=== PATIENT | male | born 1945 | race Caucasian/White ===

== ENCOUNTER → 2016-10-22 | Outpatient (CLI) | payer MEDICARE ==
--- NOTE | 2016-10-22 17:52 | PN ---
71-year-old gentleman who has been followed in the sleep center to discuss results of the sleep studies and to check results of his treatment with CPAP he recently was started on treatment with CPAP. I discussed results of diagnostic sleep study and CPAP titration with the patient in detail. Has severe sleep apnea. Recently was started on treatment with CPAP at 13 cm of water. I checked reading from his CPAP machine. I also checked his CPAP unit. Patient is using equipment practically 100% more than 4 hours per night. The patient feels better with machine regarding to his sleep and feeling during the day. Apison Sleepiness Scale is 4. I checked his CPAP unit. CPAP pressure of 13 cm of water. ( ) up to 26 L/min from the machine. Apnea-hypopnea index reading for the month is 8.7. ( ) in automatic regimen. MEDICATIONS: 1. Amlodipine. 2. Benadryl. 3. Hydralazine. 4. Probenecid. During the physical exam, patient in no distress. VITAL SIGNS: BP 139/82, HR 62, RR 16. Weight 198, temperature 97.8. Oxygen saturation at room air 96%. HEENT: PERRLA, EOMI. NECK: Supple. No JVD. Thyroid is not palpable. LUNGS: Clear to percussion and to auscultation. Good air exchange. No wheezing or rhonchi. HEART: S1, S2 regular. No murmurs, gallops or rubs. ABDOMEN: Soft and nontender. Bowel sounds are present. No organomegaly appreciated. EXTREMITIES: No clubbing or cyanosis. MANAGER OF LEARNING: Awake, alert, and oriented x3. Cranial nerves 2 to 7 intact. There is no fasciculation or atrophy noted. No focal deficits observed. IMPRESSION: 1. Severe obstructive sleep apnea-hypopnea syndrome. Apnea-hypopnea index 72.5 significantly improved on CPAP with a pressure of 13 cm of water. Patient demonstrated 100% compliance with treatment benefiting from treatment. 2. Severe periodic limb movements have been documented during diagnostic night and titration. 3. Hypertension. 4. Gout. 5. Allergies. 6. History of nasal polyp. 7. Status post bilateral knee replacement. 8. Status post shoulder surgery. PLAN: 1. I adjusted pressure in patient's CPAP unit up to 14 cm of water. 2. I adjusted REM to home automatic regimen to regular regimen for 20 minutes starting from 5 cm of water. 3. Continue to use CPAP equipment every night for the whole night. 4. No driving if feeling any sleepiness. 5. Losing weight. Thank you very much for allowing me to participate in the management of your patient. Sincerely, Nitin Bravo MD, PhD, FAASM. Diplomat of [employer], Sleep Medicine Board by [employer] [facility] [place]
== END | disposition home or self-care (01) ==
LOC: SLEEP 11:19
PROVIDERS: ATTEND Internal Medicine
DX: G47.33 Obstructive sleep apnea (adult) (pediatric) (principal); I10 Essential (primary) hypertension; M10.9 Gout, unspecified; Z91.09 Other allergy status, other than to drugs and biological substances; Z96.653 Presence of artificial knee joint, bilateral; Z98.890 Other specified postprocedural states; J33.9 Nasal polyp, unspecified; Z79.899 Other long term (current) drug therapy

== ENCOUNTER 2018-04-04 13:55 | Day surgery (SDC) | payer MEDICARE ==
[2018-04-04 13:40] VITALS: BP 170/74; PULSE 54; TEMP 97.6
[2018-04-04] MEDS ORDERED: IOPAMIDOL-250 50ML BTL IV ONE (14:33)
[2018-04-04 15:02] VITALS: RESP 18
--- NOTE | 2018-04-13 13:15 | IR ---
Fluoroscopic portogram([facility]). HISTORY: Device malfunction. The patient presented to the CVL with a [place] needle within the port. Preliminary fluoroscopy demonst rated the catheter to be intact. However, the catheter was coiled overlying the right supraclavicu lar region. No aspiration could be obtained and therefore injection could not be performed. Next 1 image and 0.3 minutes of fluoroscopy provided. IMPRESSION: 1. Catheter is coiled and looped in the supraclavicular region and appears to be occluded with no ret urn present upon aspiration.
== END 2018-04-04 15:00 | disposition home or self-care (01) ==
LOC: CATHCVL 13:55
PROVIDERS: ATTEND Radiology Diagnostic Radiology
DX: T82.514A Breakdown (mechanical) of infusion catheter, initial encounter (principal); C25.0 Malignant neoplasm of head of pancreas; L27.1 Localized skin eruption due to drugs and medicaments taken internally; R19.7 Diarrhea, unspecified; I10 Essential (primary) hypertension; E78.5 Hyperlipidemia, unspecified; M10.9 Gout, unspecified; Z90.49 Acquired absence of other specified parts of digestive tract; Z96.653 Presence of artificial knee joint, bilateral; Z87.891 Personal history of nicotine dependence; Z79.82 Long term (current) use of aspirin; Z79.899 Other long term (current) drug therapy
CPT/HCPCS: 36598; J1642; Q9966

== ENCOUNTER 2018-09-06 19:01 | Inpatient (IN) | payer MEDICARE ==
[2018-09-06] MEDS ORDERED: ASPIRIN 81 MG PO STA (19:21)
[2018-09-06] MEDS ORDERED: NITROGLYCERIN SL TABS 0.4 MG TAB SUBLINGUAL STA ×3 (19:21)
--- NOTE | 2018-09-06 19:24 | ED ---
General Adult HPI - General Chief complaint: Chest Pain Stated complaint: Chest Pain Time Seen by Provider: 09/06/18 19:15 Source: patient, family, RN notes reviewed Mode of arrival: ambulatory Limitations: no limitations - History of Present Illness Initial comments: Patient is a pleasant 73-year-old male presenting to the emergency Department with complaints of chest discomfort. Onset was around an hour and a half ago. Patient has indigestion in his chest with some radiation towards the back. No history of similar symptoms previously. Discomfort has progressively worsened and is turned to become severe. Patient does have some associated dyspnea. There is some mild nausea. No diaphoresis. Patient does have a history of pancreatitis approximately one year ago however that does not feel similar to this. Patient has not been diagnosed with pancreatic cancer however has not started treatment yet. - Related Data Home Medications Medication Instructions Recorded Confirmed Aspirin 1 cap PO DAILY 04/04/18 09/06/18 Atorvastatin [Lipitor] 40 mg PO DAILY 04/04/18 09/06/18 Metoprolol Succinate [Toprol XL] 50 mg PO DAILY 04/04/18 09/06/18 Pantoprazole [Protonix] 40 cap PO DAILY 04/04/18 09/06/18 Probenecid/Colchicine 1 each PO DAILY 04/04/18 09/06/18 [Probenecid-Colchicine Tabs] Timolol 0.5% Ophth Soln [Timoptic 1 drop BOTH EYES DAILY 04/04/18 09/06/18 0.5% Ophth Soln] amLODIPine BESYLATE [Norvasc] 10 mg PO DAILY 04/04/18 09/06/18 hydrALAZINE HCL 50 mg PO DAILY 04/04/18 09/06/18 Allergies Allergy/AdvReac Type Severity Reaction Status Date / Time No Known Allergies Allergy Verified 09/06/18 20:10 Review of Systems ROS Statement: Those systems with pertinent positive or pertinent negative responses have been documented in the HPI. ROS Other: All systems not noted in ROS Statement are negative. Constitutional: Denies: fever Eyes: Denies: eye pain ENT: Denies: ear pain Respiratory: Reports: dyspnea. Denies: cough Cardiovascular: Reports: chest pain Endocrine: Denies: fatigue Gastrointestinal: Reports: nausea. Denies: abdominal pain Genitourinary: Denies: dysuria Musculoskeletal: Reports: as per HPI Skin: Denies: rash Neurological: Denies: weakness Past Medical History Past Medical History: Cancer, Hypertension Additional Past Medical History / Comment(s): pancreatic CA History of Any Multi-Drug Resistant Organisms: None Reported Past Surgical History: Cholecystectomy, Orthopedic Surgery Additional Past Surgical History / Comment(s): B knees Past Psychological History: No Psychological Hx Reported Smoking Status: Former smoker Past Alcohol Use History: Occasional Past Drug Use History: None Reported General Exam Limitations: no limitations General appearance: alert Head exam: Present: atraumatic Eye exam: Present: normal appearance, PERRL ENT exam: Present: normal oropharynx Neck exam: Present: normal inspection Respiratory exam: Present: normal lung sounds bilaterally. Absent: chest wall tenderness Cardiovascular Exam: Present: regular rate, normal rhythm Expanded Peripheral pulses: 2+: Radial (R), Radial (L), Posterior Tibialis (R), Posterior Tibialis (L) GI/Abdominal exam: Present: soft. Absent: distended, tenderness Extremities exam: Present: normal inspection. Absent: pedal edema, calf tenderness Back exam: Present: normal inspection Neurological exam: Present: alert Psychiatric exam: Present: normal affect, normal mood Skin exam: Present: normal color Course Vital Signs 09/06/18 09/06/18 09/06/18 19:05 19:31 19:40 Temperature 98.1 F Pulse Rate 71 Respiratory 18 Rate Blood Pressure 172/80 164/86 O2 Sat by Pulse 97 96 Oximetry 09/06/18 09/06/18 09/06/18 19:50 20:10 20:20 Temperature Pulse Rate 68 82 80 Respiratory 17 Rate Blood Pressure 154/75 142/87 158/80 O2 Sat by Pulse 93 L 95 95 Oximetry EKG Findings - EKG Comments: EKG Findings:: Sinus rhythm at 72. KS 158. QRS 140. QTc 450. QTC 492. Normal axis. Right bundle branch block. Inferior Q waves. No acute ST change. Medical Decision Making - Medical Decision Making Patient reevaluated and still had some discomfort. Dilaudid and GI cocktail have been ordered. Patient and family updated on results and plan. Case was discussed in detail with Dr. Bonilla, covering for hospital call, who will admit. Cardiology will be consulted. Dr. Nolasco will also be placed on consult. Patient will be covered with antibiotics for possible pneumonia. - Lab Data Result diagrams: 09/06/18 19:29 09/06/18 19:29 Lab Results 09/06/18 09/06/18 09/06/18 Range/Units 19:29 19:29 19:29 WBC 17.5 H (3.8-10.6) k/uL RBC 4.01 L (4.30-5.90) m/uL Hgb 11.8 L (13.0-17.5) gm/dL Hct 37.0 L (39.0-53.0) % MCV 92.4 (80.0-100.0) fL MCH 29.3 (25.0-35.0) pg MCHC 31.8 (31.0-37.0) g/dL RDW 16.4 H (11.5-15.5) % Plt Count 357 (150-450) k/uL Neutrophils % 75 % Lymphocytes % 12 % Monocytes % 7 % Eosinophils % 5 % Basophils % 0 % Neutrophils # 13.1 H (1.3-7.7) k/uL Lymphocytes # 2.1 (1.0-4.8) k/uL Monocytes # 1.2 H (0-1.0) k/uL Eosinophils # 0.8 H (0-0.7) k/uL Basophils # 0.1 (0-0.2) k/uL Hypochromasia Slight Anisocytosis Slight PT (9.0-12.0) sec INR (<1.2) APTT (22.0-30.0) sec D-Dimer (<0.60) mg/L FEU Sodium 142 (137-145) mmol/L Potassium 3.7 (3.5-5.1) mmol/L Chloride 107 (98-107) mmol/L Carbon Dioxide 21 L (22-30) mmol/L Anion Gap 14 mmol/L BUN 21 H (9-20) mg/dL Creatinine 1.41 H (0.66-1.25) mg/dL Est GFR (CKD-EPI)AfAm 57 (>60 ml/min/1.73 sqM) Est GFR (CKD-EPI)NonAf 50 (>60 ml/min/1.73 sqM) Glucose 160 H (74-99) mg/dL Calcium 9.8 (8.4-10.2) mg/dL Magnesium 1.5 L (1.6-2.3) mg/dL Total Bilirubin 0.4 (0.2-1.3) mg/dL AST 42 (17-59) U/L ALT 56 (21-72) U/L Alkaline Phosphatase 131 H (38-126) U/L Total Creatine Kinase 81 (55-170) U/L CK-MB (CK-2) 0.6 (0.0-2.4) ng/mL CK-MB (CK-2) Rel Index 0.7 Troponin I 0.012 (0.000-0.034) ng/mL Total Protein 7.6 (6.3-8.2) g/dL Albumin 4.4 (3.5-5.0) g/dL Amylase 39 (30-110) U/L Lipase 117 (23-300) U/L 09/06/18 Range/Units 19:29 WBC (3.8-10.6) k/uL RBC (4.30-5.90) m/uL Hgb (13.0-17.5) gm/dL Hct (39.0-53.0) % MCV (80.0-100.0) fL MCH (25.0-35.0) pg MCHC (31.0-37.0) g/dL RDW (11.5-15.5) % Plt Count (150-450) k/uL Neutrophils % % Lymphocytes % % Monocytes % % Eosinophils % % Basophils % % Neutrophils # (1.3-7.7) k/uL Lymphocytes # (1.0-4.8) k/uL Monocytes # (0-1.0) k/uL Eosinophils # (0-0.7) k/uL Basophils # (0-0.2) k/uL Hypochromasia Anisocytosis PT 9.9 (9.0-12.0) sec INR 0.9 (<1.2) APTT 25.7 (22.0-30.0) sec D-Dimer 1.37 H (<0.60) mg/L FEU Sodium (137-145) mmol/L Potassium (3.5-5.1) mmol/L Chloride (98-107) mmol/L Carbon Dioxide (22-30) mmol/L Anion Gap mmol/L BUN (9-20) mg/dL Creatinine (0.66-1.25) mg/dL Est GFR (CKD-EPI)AfAm (>60 ml/min/1.73 sqM) Est GFR (CKD-EPI)NonAf (>60 ml/min/1.73 sqM) Glucose (74-99) mg/dL Calcium (8.4-10.2) mg/dL Magnesium (1.6-2.3) mg/dL Total Bilirubin (0.2-1.3) mg/dL AST (17-59) U/L ALT (21-72) U/L Alkaline Phosphatase (38-126) U/L Total Creatine Kinase (55-170) U/L CK-MB (CK-2) (0.0-2.4) ng/mL CK-MB (CK-2) Rel Index Troponin I (0.000-0.034) ng/mL Total Protein (6.3-8.2) g/dL Albumin (3.5-5.0) g/dL Amylase (30-110) U/L Lipase (23-300) U/L - Radiology Data Radiology results: report reviewed (Computed tomography scan of the chest shows cardiomegaly. No pulmonary embolism. Basilar pulmonary infiltrates and atelectasis. Mild aneurysm of the ascending aorta.), image reviewed (Chest x- ray shows cardiomegaly.) Disposition Clinical Impression: Chest pain Disposition: ADMITTED IP TO THIS HOSP Is patient prescribed a controlled substance at d/c from ED?: No Referrals: Nonstaff,Physician [Primary Care Provider] - 1-2 days Decision Time: 22:05
[2018-09-06 19:53] LABS: Anisocytosis Slight; Basophils # (A) 0.1 k/uL (0-0.2); Basophils % (A) 0 %; Eosinophils # (A) 0.8 k/uL (0-0.7); Eosinophils % (A) 5 %; HGB 11.8 gm/dL (13.0-17.5); Hypochromasia Slight; Lymphocytes # (A) 2.1 k/uL (1.0-4.8); Lymphocytes % (A) 12 %; MCH 29.3 pg (25.0-35.0); MCHC 31.8 g/dL (31.0-37.0); MCV 92.4 fL (80.0-100.0); Monocytes # (A) 1.2 k/uL (0-1.0); Monocytes % (A) 7 %; Neutrophils # (A) 13.1 k/uL (1.3-7.7); Neutrophils % (A) 75 %; Platelet Count 357 k/uL (150-450); RBC 4.01 m/uL (4.30-5.90); RDW 16.4 % (11.5-15.5); WBC 17.5 k/uL (3.8-10.6)
[2018-09-06] MEDS ORDERED: MORPHINE SULFATE 4 MG/ML SYRINGE IV STA (20:02)
[2018-09-06 20:04] LABS: Albumin 4.4 g/dL (3.5-5.0); Calcium 9.8 mg/dL (8.4-10.2); Magnesium 1.5 mg/dL (1.6-2.3); Potassium 3.7 mmol/L (3.5-5.1); Total Bilirubin 0.4 mg/dL (0.2-1.3); Total Protein 7.6 g/dL (6.3-8.2)
--- NOTE | 2018-09-06 20:06 | XR ---
EXAMINATION TYPE: XR chest 2V DATE OF EXAM: 09/06/2018 COMPARISON: 03/01/2018 HISTORY: Chest pain TECHNIQUE: Frontal and lateral views of the chest are obtained. FINDINGS: Heart is enlarged. There is no heart failure. Costophrenic angles are fairly clear. There are chest leads. There is right central venous catheter with the tip in the superior vena cava. IMPRESSION: Cardiomegaly. No acute lung disease. No significant change.
[2018-09-06 20:09] LABS: INR 0.9 (<1.2); Partial Thromboplastin Time 25.7 sec (22.0-30.0); Prothrombin Time 9.9 sec (9.0-12.0)
[2018-09-06 20:32] LABS: Creatine Kinase MB 0.6 ng/mL (0.0-2.4); Troponin I 0.012 ng/mL (0.000-0.034)
[2018-09-06 20:33] LABS: D-Dimer 1.37 mg/L FEU (<0.60)
[2018-09-06] MEDS ORDERED: SODIUM CHLORIDE 0.9% 500 ML 500 ML IV STA (20:37)
[2018-09-06] MEDS ORDERED: MORPHINE SULFATE 2 MG/ML SYRINGE IVP STA (20:50)
--- NOTE | 2018-09-06 21:20 | CT ---
EXAMINATION TYPE: CT angio chest DATE OF EXAM: 09/06/2018 9:08 PM COMPARISON: HISTORY: r/o PE CT DLP: 456.4 mGycm Automated exposure control for dose reduction was used. CONTRAST: CTA scan of the thorax is performed with IV Contrast, patient injected with 80 mL of Isovue 370, pulm onary embolism protocol. There are 3-D post processed images.. FINDINGS: There is patchy atelectasis at the posterior lung bases. Heart is enlarged. There is no pericardial e ffusion. There is no pleural effusion. There is no evidence of a pulmonary mass. There is no mediasti nal adenopathy. There are no hilar masses. There is mild aneurysm of the ascending aorta that measures 4.3 cm. There is no evidence of dissectio n. There is normal contrast opacification of the pulmonary arteries. I see no filling defects. The mey ny thorax is intact. I see no bony destructive process. IMPRESSION: CARDIOMEGALY. NO EVIDENCE OF PULMONARY EMBOLISM. BASILAR PULMONARY MILD INFILTRATES AND ATELECTASIS. MILD ANEURYSM OF THE ASCENDING AORTA.
[2018-09-06] MEDS ORDERED: MAGNESIUM OXIDE 400 MG TAB PO STA (21:31)
[2018-09-06] MEDS ORDERED: HYDROmorphone 1 MG/ML 1 ML SYRINGE IVP STA ×2 (21:45→23:03)
[2018-09-06] MEDS ORDERED: MAG HYDROX/AL HYDROX/SIMETH 30 ML, HYOSCYAMINE ELIXIR 10 ML, CIMETIDINE HCL 300 MG, LID... PO STA ×4 (22:04)
[2018-09-06] MEDS ORDERED: NITROGLYCERIN SL TABS 0.4 MG TAB SUBLINGUAL PRN (22:06)
[2018-09-06] MEDS ORDERED: PNEUMONIA PROTOCOL UTILIZED 1 EACH MISC PO PRN (22:06)
[2018-09-06] MEDS ORDERED: AZITHROMYCIN 500 MG in SODIUM CHLORIDE 0.9% 250 ML IVPB STA (22:06)
[2018-09-06] MEDS ORDERED: CYCLOBENZAPRINE 10 MG TAB PO STA (23:03)
[2018-09-06] MEDS: SODIUM CHLORIDE 0.9% 1,000 ML IV SCH (23:12)
[2018-09-06] MEDS ORDERED: METOPROLOL SUCCINATE (ER) 25 MG TAB.ER.24H PO ONE (23:45)
[2018-09-07] MEDS: NITROGLYCERIN OINT 1 INCH/GM PACKET TOPICAL SCH ×4 (00:19→16:58)
[2018-09-07] MEDS: MORPHINE SULFATE 4 MG/ML SYRINGE IV PRN ×2 (00:22→02:35)
--- NOTE | 2018-09-07 00:23 | CT ---
EXAMINATION TYPE: CT abdomen pelvis wo con DATE OF EXAM: 09/06/2018 COMPARISON: None HISTORY: abd pain CT DLP: 682.4 mGycm Automated exposure control for dose reduction was used. TECHNIQUE: Helical acquisition of images was performed from the lung bases through the pelvis. FINDINGS: There is some patchy atelectasis at the lung bases. Heart is enlarged. There is small pericardial eff usion. There is minimal pleural fluid. There are clips from cholecystectomy. Liver shows no focal defect. Spleen appears normal. There is no pancreatic mass. There is dilated air and fluid-filled stomach. There is no adrenal mass. There is no evidence of pancreatic mass. There is contrast in the kidneys f rom previous exam. Kidneys show no hydronephrosis. Ureters are not dilated. There is no retroperitoneal adenopathy. Ther e is umbilical hernia contains fat. This measures 3 x 3.5 cm. Abdominal aorta is atheromatous. Bladder distends smoothly with contrast. There is no pelvic mass. Th ere is no inguinal hernia. There is no free fluid in the pelvis. There is no evidence of a bowel obst ruction. Appendix is not definitely seen. There is no sign of appendicitis. There is no sign of free air. There is multilevel spondylotic change in the lumbar spine with disc space narrowing and vacuum disc. I see no compression fracture. IMPRESSION: DILATED STOMACH COULD RELATE TO SOME GASTROPARESIS. NO DILATED DUCTS. UMBILICAL HERNIA. BASILAR PULMONARY PATCHY ATELECTASIS AND PLEURAL THICKENING. THYROMEGALY WITH SMALL PERICARDIAL EFFUS ION.
[2018-09-07 02:14] LABS: Creatine Kinase MB 0.5 ng/mL (0.0-2.4); Troponin I 0.015 ng/mL (0.000-0.034)
[2018-09-07] MEDS: SODIUM CHLORIDE 0.9% 1,000 ML IV SCH ×2 (06:49→12:06)
--- NOTE | 2018-09-07 07:15 | XR ---
EXAMINATION TYPE: XR chest 2V DATE OF EXAM: 09/07/2018 COMPARISON: Chest x-ray and CTA chest from yesterday. HISTORY: Pneumonia progress study. TECHNIQUE: Frontal and lateral views of the chest are obtained. FINDINGS: There is chronic parenchymal change with patchy left basilar atelectasis and/or infiltrate . Right lung is clear. There is coiled right internal jugular central venous catheter with tip short of the SVC redemonstrated. The cardiac silhouette size remains enlarged. Multilevel spurring and disc space narrowing in the visualized spine is present. Cholecystectomy clips are noted. IMPRESSION: Cardiomegaly and chronic parenchymal change with patchy left basilar atelectasis and/or infiltrate.
[2018-09-07 08:52] LABS: Cholesterol 70 mg/dL (<200); HDL Cholesterol 51 mg/dL (40-60); LDL Cholesterol,Calculated 8 mg/dL (0-99); Triglycerides 53 mg/dL (<150)
[2018-09-07] MEDS ORDERED: ASPIRIN 325 MG TAB PO SCH (09:00)
[2018-09-07 09:08] LABS: Creatine Kinase MB 0.7 ng/mL (0.0-2.4); Troponin I 0.031 ng/mL (0.000-0.034)
--- NOTE | 2018-09-07 09:49 | ECHOF ---
Referral Reason:Chest pain MEASUREMENTS -------- HEIGHT: 172.7 cm WEIGHT: 89.8 kg BP: 132/71 RVIDd: 4.0 cm (< 3.3) IVSd: 1.4 cm (0.6 - 1.1) LVIDd: 4.3 cm (3.9 - 5.3) LVPWd: 1.5 cm (0.6 - 1.1) IVSs: 1.7 cm LVIDs: 3.3 cm LVPWs: 1.5 cm Ao Diam: 3.5 cm (2.0 - 3.7) LA Diam: 4.7 cm (2.7 - 3.8) MV EXCURSION: 13.275 mm (> 18.000) MV EF SLOPE: 61 mm/s (70 - 150) EPSS: 0.3 cm MV E Franklin: 0.47 m/s MV DecT: 218 ms MV A Franklin: 0.69 m/s MV E/A Ratio: 0.68 RAP: 5.00 mmHg RVSP: 26.04 mmHg FINDINGS -------- Sinus rhythm. This was a technically adequate study. The left ventricular size is normal. There is moderate concentric left ventricular hypertrophy. O verall left ventricular systolic function is low-normal with, an EF between 50 - 55 %. The right ventricle is moderately enlarged. The left atrial size is normal. The right atrial size is normal. There is mild aortic valve sclerosis. There is no evidence of aortic regurgitation. Mild mitral annular calcification present. Mild mitral regurgitation is present. Mild tricuspid regurgitation present. There is no evidence of pulmonary hypertension. The right v entricular systolic pressure, as measured by Doppler, is 26.04mmHg. There is no pulmonic regurgitation present. The aortic root size is normal. There is no pericardial effusion. CONCLUSIONS -------- 1. The left ventricular size is normal. 2. There is moderate concentric left ventricular hypertrophy. 3. Overall left ventricular systolic function is low-normal with, an EF between 50 - 55 %. 4. The right ventricle is moderately enlarged. 5. The left atrial size is normal. 6. The right atrial size is normal. 7. There is mild aortic valve sclerosis. 8. Mild mitral annular calcification present. 9. Mild mitral regurgitation is present. 10. Mild tricuspid regurgitation present. 11. There is no evidence of pulmonary hypertension. 12. The right ventricular systolic pressure, as measured by Doppler, is 26.04mmHg. 13. There is no pulmonic regurgitation present. 14. The aortic root size is normal. 15. There is no pericardial effusion. INSPECTOR [employer]ING: Niharika Gamez RDCS
[2018-09-07] MEDS ORDERED: traMADol 50 MG TAB PO PRN (10:16)
[2018-09-07] MEDS ORDERED: SENNOSIDES 8.6 MG TAB PO PRN (10:17)
[2018-09-07] MEDS ORDERED: CYCLOBENZAPRINE 5 MG TAB PO PRN (10:18)
--- NOTE | 2018-09-07 10:25 | P.CRDCN ---
History of Present Illness History of present illness: This is Dr. Alegre dictating a consult on this patient The patient was interviewed and examined by me IMPRESSION / ASSESSMENT: History of pancreatic cancer, admitted with chest discomfort and normal, enzymes twelve-lead ECG shows right bundle branch block pattern PLAN: Continue treatment for pancreatic cancer. No further workup from a cardiac standpoint We will see only on a when necessary basis HPI Patient admitted with chest discomfort ROS: No fever chills or rigors, no cough, phlegm or expectoration, no nausea, vomiting or diarrhea, no hematuria, dysuria, no musculoskeletal complaints, no strokes or seizures, no skin lesions. EXAMINATION Afebrile 98F Blood pressure 115/66. His mercury Pulse rate is normal Breath sounds are reduced bilaterally no rhonchi no crackles Heart sounds and S2 are soft Abdomen is soft Extended is warm REVIEW OF LABS, ECG Elevated white count was 17.5 thousand Hemoglobin 11.8 Sodium and potassium normal BUN 21 creatinine Normal cardiac enzymes 2-D echo shows moderate LVH with preserved LV systolic function Ascending aorta measures 4.3 cm, mildly aneurysmal Past Medical History Past Medical History: Cancer, Hypertension Additional Past Medical History / Comment(s): pancreatic CA History of Any Multi-Drug Resistant Organisms: None Reported Past Surgical History: Cholecystectomy, Orthopedic Surgery Additional Past Surgical History / Comment(s): B knees Past Psychological History: No Psychological Hx Reported Smoking Status: Former smoker Past Alcohol Use History: Occasional Past Drug Use History: None Reported Medications and Allergies Home Medications Medication Instructions Recorded Confirmed Type Atorvastatin [Lipitor] 40 mg PO DAILY 04/04/18 09/06/18 History Metoprolol Succinate [Toprol XL] 50 mg PO DAILY 04/04/18 09/06/18 History Probenecid/Colchicine 1 each PO DAILY 04/04/18 09/06/18 History [Probenecid-Colchicine Tabs] RX: Aspirin 1 cap PO DAILY 04/04/18 09/06/18 History RX: Pantoprazole [Protonix] 40 cap PO DAILY 04/04/18 09/06/18 History RX: Timolol 0.5% Ophth Soln 1 drop BOTH EYES DAILY 04/04/18 09/06/18 History [Timoptic 0.5% Ophth Soln] RX: hydrALAZINE HCL 50 mg PO DAILY 04/04/18 09/06/18 History amLODIPine BESYLATE [Norvasc] 10 mg PO DAILY 04/04/18 09/06/18 History Allergies Allergy/AdvReac Type Severity Reaction Status Date / Time No Known Allergies Allergy Verified 09/06/18 20:10 Physical Exam Vitals: Vital Signs Temp Pulse Pulse Resp BP BP Pulse Ox 09/07/18 09:00 98 F 75 22 115/66 88 L 09/07/18 04:00 98.1 F 76 18 132/77 97 09/07/18 00:04 97.8 F 09/07/18 00:00 89 18 165/70 09/06/18 23:52 98 F 89 18 165/78 96 09/06/18 23:50 88 16 143/72 94 L 09/06/18 23:30 148/80 09/06/18 23:20 90 148/80 91 L 09/06/18 23:10 91 141/69 93 L 09/06/18 23:00 92 167/81 94 L 09/06/18 22:30 91 151/94 93 L 09/06/18 22:10 87 148/86 94 L 09/06/18 22:00 88 18 139/89 09/06/18 21:20 87 16 161/88 96 09/06/18 20:50 81 128/77 96 09/06/18 20:40 85 156/88 97 09/06/18 20:30 79 158/80 09/06/18 20:20 80 17 158/80 95 09/06/18 20:10 82 142/87 95 09/06/18 19:50 68 154/75 93 L 09/06/18 19:40 164/86 09/06/18 19:31 96 09/06/18 19:05 98.1 F 71 18 172/80 97 Intake and Output 09/06/18 09/07/18 09/07/18 22:59 06:59 14:59 Intake Total 480 Output Total 200 Balance 480 -200 Intake: Oral 480 Output: Urine 200 Other: Voiding Method Toilet Toilet # Voids 2 Weight 86.183 kg 90.2 kg Results 09/06/18 19:29 09/06/18 19:29 Cardiac Enzymes 09/06/18 09/06/18 09/07/18 Range/Units 19:29 19:29 01:00 AST 42 (17-59) U/L CK-MB (CK-2) 0.6 0.5 (0.0-2.4) ng/mL Troponin I 0.012 0.015 (0.000-0.034) ng/mL 09/07/18 Range/Units 07:56 AST (17-59) U/L CK-MB (CK-2) 0.7 (0.0-2.4) ng/mL Troponin I 0.031 (0.000-0.034) ng/mL Coagulation 09/06/18 Range/Units 19:29 PT 9.9 (9.0-12.0) sec APTT 25.7 (22.0-30.0) sec Lipids 09/07/18 Range/Units 07:56 Triglycerides 53 (<150) mg/dL Cholesterol 70 (<200) mg/dL HDL Cholesterol 51 (40-60) mg/dL CBC 09/06/18 Range/Units 19:29 WBC 17.5 H (3.8-10.6) k/uL RBC 4.01 L (4.30-5.90) m/uL Hgb 11.8 L (13.0-17.5) gm/dL Hct 37.0 L (39.0-53.0) % Plt Count 357 (150-450) k/uL Comprehensive Metabolic Panel 09/06/18 Range/Units 19:29 Sodium 142 (137-145) mmol/L Potassium 3.7 (3.5-5.1) mmol/L Chloride 107 (98-107) mmol/L Carbon Dioxide 21 L (22-30) mmol/L BUN 21 H (9-20) mg/dL Creatinine 1.41 H (0.66-1.25) mg/dL Glucose 160 H (74-99) mg/dL Calcium 9.8 (8.4-10.2) mg/dL AST 42 (17-59) U/L ALT 56 (21-72) U/L Alkaline Phosphatase 131 H (38-126) U/L Total Protein 7.6 (6.3-8.2) g/dL Albumin 4.4 (3.5-5.0) g/dL Current Medications Generic Name Dose Route Start Last Admin Trade Name Freq PRN Reason Stop Dose Admin Aspirin 81 mg 09/08/18 09:00 Aspirin PO DAILY GABRIELA Atorvastatin Calcium 40 mg 09/08/18 09:00 Lipitor PO DAILY [facility] Cyclobenzaprine HCl 5 mg 09/07/18 10:18 Flexeril PO TID PRN Muscle Spasm Ceftriaxone Sodium 1,000 mg/ 50 mls @ 100 mls/hr 09/07/18 23:00 Sodium Chloride IVPB Q24H [facility] Sodium Chloride 1,000 mls @ 100 mls/hr 09/06/18 22:15 09/07/18 06:49 Saline 0.9% IV 100 mls/hr .Q10H [facility] Administration Magnesium Sulfate/Dextrose 1 100 mls @ 100 mls/hr 09/07/18 10:30 gm/ IV Solution IVPB 09/07/18 12:29 Q1H [facility] Metoprolol Succinate 50 mg 09/08/18 09:00 Toprol Xl PO DAILY [facility] Miscellaneous Information 1 each 09/06/18 22:06 Pneumonia Protocol Utilized PO ONCE PRN Per Protocol Nitroglycerin 1 inch 09/07/18 00:00 09/07/18 06:47 Nitro-Bid Oint TOPICAL 1 inch Q6HR [facility] Administration Nitroglycerin 0.4 mg 09/06/18 22:06 Nitrostat SUBLINGUAL Q5M PRN Chest Pain Pantoprazole Sodium 40 mg 09/08/18 07:30 Protonix PO AC-BRKFST [facility] Senna 8.6 mg 09/07/18 10:17 Senokot PO BID PRN Constipation Sodium Chloride 10 ml 09/07/18 09:00 09/07/18 09:02 Saline Flush IV 10 ml BID [facility] Administration Timolol Maleate 1 drops 09/08/18 09:00 Timoptic BOTH EYES DAILY [facility] Tramadol HCl 50 mg 09/07/18 10:16 Ultram PO QID PRN Pain/Discomfort Intake and Output 09/06/18 09/07/18 09/07/18 22:59 06:59 14:59 Intake Total 480 Output Total 200 Balance 480 -200 Intake: Oral 480 Output: Urine 200 Other: Voiding Method Toilet Toilet # Voids 2 Weight 86.183 kg 90.2 kg 09/06/18 19:29 09/06/18 19:29
[2018-09-07] MEDS ORDERED: METOPROLOL SUCCINATE (ER) 50 MG TAB.ER.24H PO STA (10:33)
[2018-09-07] MEDS ORDERED: ATORVASTATIN 40 MG TAB PO STA (10:33)
[2018-09-07] MEDS: MAGNESIUM SULFATE-D5W PMX 1 GM in DEXTROSE/WATER 1 100ML.BAG IVPB SCH ×2 (10:54→12:01)
[2018-09-07] MEDS ORDERED: POLYETHYLENE GLYCOL 3350 17 GM POWD.PACK PO PRN (11:54)
[2018-09-07] MEDS: MORPHINE SULFATE 4 MG/ML SYRINGE IVP PRN ×2 (12:02→16:06)
[2018-09-07] MEDS: PANTOPRAZOLE 40 MG TABLET PO SCH (12:02)
--- NOTE | 2018-09-07 12:42 | P.HPIM ---
History of Present Illness 73-year-old pleasant gentleman came in with the comments of epigastric abdominal discomfort burning sensation which started yesterday at the time patient did not eat and he felt like has indigestion. Patient also has another pain in the epigastric abdominal area which radiates to the back and worsens with deep breathing which is severe 8/10 in severity as he is unable to take deep breath patient is found to have atelectasis. Patient is also sort of breath saturating at 89% on the previous of [place] because of which CAT scan of the chest was obtained did not show any pulmonary embolism. CAT scan of the abdomen was often as well as no significant pancreatic mass was seen as per the reading from radiologist. Patient does have history of pancreatic cancer received chemotherapy and will receive the and of the cycle of chemotherapy. 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 His main concern appears to be the pain radiating to the back. Because of the chest pain patient was admitted to rule out a concurrent syndromes could etiology was consulted patient's troponins are negative cardio evaluated the patient and they do not believe patient has any cardiac pain. I' ll also obtain BNP although patient does not have any clinical signs or symptoms of CHF or pneumonia patient does have cough without any significant sputum production. Review of Systems REVIEW OF SYSTEMS: CONSTITUTIONAL: No fever, no malaise, no fatigue. HEENT: No recent visual problems or hearing problems. Denied any sore throat. CARDIOVASCULAR: No PND, no palpitations, no syncope. PULMONARY: no hemoptysis. GASTROINTESTINAL: No diarrhea, no nausea, no vomiting, no abdominal pain. NEUROLOGICAL: No headaches, no weakness, no numbness. HEMATOLOGICAL: Denies any bleeding or petechiae. GENITOURINARY: Denies any burning micturition, frequency, or urgency. MUSCULOSKELETAL/RHEUMATOLOGICAL: Denies any joint pain, swelling, or any muscle pain. ENDOCRINE: Denies any polyuria or polydipsia. The rest of the 14-point review of systems is negative. Past Medical History Past Medical History: Cancer, Hypertension Additional Past Medical History / Comment(s): pancreatic CA History of Any Multi-Drug Resistant Organisms: None Reported Past Surgical History: Cholecystectomy, Orthopedic Surgery Additional Past Surgical History / Comment(s): B knees Past Psychological History: No Psychological Hx Reported Smoking Status: Former smoker Past Alcohol Use History: Occasional Past Drug Use History: None Reported Medications and Allergies Home Medications Medication Instructions Recorded Confirmed Type Aspirin 1 cap PO DAILY 04/04/18 09/06/18 History Atorvastatin [Lipitor] 40 mg PO DAILY 04/04/18 09/06/18 History Metoprolol Succinate [Toprol XL] 50 mg PO DAILY 04/04/18 09/06/18 History Pantoprazole [Protonix] 40 cap PO DAILY 04/04/18 09/06/18 History Probenecid/Colchicine 1 each PO DAILY 04/04/18 09/06/18 History [Probenecid-Colchicine Tabs] Timolol 0.5% Ophth Soln [Timoptic 1 drop BOTH EYES DAILY 04/04/18 09/06/18 History 0.5% Ophth Soln] amLODIPine BESYLATE [Norvasc] 10 mg PO DAILY 04/04/18 09/06/18 History hydrALAZINE HCL 50 mg PO DAILY 04/04/18 09/06/18 History Allergies Allergy/AdvReac Type Severity Reaction Status Date / Time No Known Allergies Allergy Verified 09/06/18 20:10 Physical Exam Vitals: Vital Signs Temp Pulse Pulse Resp BP BP Pulse Ox 09/07/18 10:58 99.2 F 78 20 119/64 89 L 09/07/18 09:00 98 F 75 22 115/66 88 L 09/07/18 04:00 98.1 F 76 18 132/77 97 09/07/18 00:04 97.8 F 09/07/18 00:00 89 18 165/70 09/06/18 23:52 98 F 89 18 165/78 96 09/06/18 23:50 88 16 143/72 94 L 09/06/18 23:30 148/80 09/06/18 23:20 90 148/80 91 L 09/06/18 23:10 91 141/69 93 L 09/06/18 23:00 92 167/81 94 L 09/06/18 22:30 91 151/94 93 L 09/06/18 22:10 87 148/86 94 L 09/06/18 22:00 88 18 139/89 09/06/18 21:20 87 16 161/88 96 09/06/18 20:50 81 128/77 96 12/25/18 20:40 85 156/88 97 12/25/18 20:30 79 158/80 09/06/18 20:20 80 17 158/80 95 09/06/18 20:10 82 142/87 95 09/06/18 19:50 68 154/75 93 L 09/06/18 19:40 164/86 09/06/18 19:31 96 09/06/18 19:05 98.1 F 71 18 172/80 97 Intake and Output 09/06/18 09/07/18 09/07/18 22:59 06:59 14:59 Intake Total 480 Output Total 200 Balance 480 -200 Intake: Oral 480 Output: Urine 200 Other: Voiding Method Toilet Toilet # Voids 2 Weight 86.183 kg 90.2 kg PHYSICAL EXAMINATION: GENERAL: The patient is alert and oriented x3, not in any acute distress. Well developed, well nourished. HEENT: Pupils are round and equally reacting to light. EOMI. No scleral icterus. No conjunctival pallor. Normocephalic, atraumatic. No pharyngeal erythema. No thyromegaly. CARDIOVASCULAR: S1 and S2 present. No murmurs, rubs, or gallops. PULMONARY: Chest is clear to auscultation, no wheezing or crackles. ABDOMEN: Soft, nontender, nondistended, normoactive bowel sounds. No palpable organomegaly. MUSCULOSKELETAL: No joint swelling or deformity. EXTREMITIES: No cyanosis, clubbing, or pedal edema. NEUROLOGICAL: Gross neurological examination did not reveal any focal deficits. SKIN: No rashes. Results CBC & Chem 7: 09/06/18 19:29 09/06/18 19:29 Labs: Abnormal Lab Results - Last 24 Hours (Table) 09/06/18 09/06/18 09/06/18 Range/Units 19:29 19:29 19:29 WBC 17.5 H (3.8-10.6) k/uL RBC 4.01 L (4.30-5.90) m/uL Hgb 11.8 L (13.0-17.5) gm/dL Hct 37.0 L (39.0-53.0) % RDW 16.4 H (11.5-15.5) % Neutrophils # 13.1 H (1.3-7.7) k/uL Monocytes # 1.2 H (0-1.0) k/uL Eosinophils # 0.8 H (0-0.7) k/uL D-Dimer 1.37 H (<0.60) mg/L FEU Carbon Dioxide 21 L (22-30) mmol/L BUN 21 H (9-20) mg/dL Creatinine 1.41 H (0.66-1.25) mg/dL Glucose 160 H (74-99) mg/dL Magnesium 1.5 L (1.6-2.3) mg/dL Alkaline Phosphatase 131 H (38-126) U/L Thrombosis Risk Factor Assmnt - Choose All That Apply Each Factor Represents 1 point: Abnormal pulmonary function (COPD) Each Risk Factor Represents 2 Points: Age 61-74 years Thrombosis Risk Factor Assessment Total Risk Factor Score: 3 Thrombosis Risk Factor Assessment Level: Moderate Risk Assessment and Plan Plan: -Chest pain: The lateral but not cardiac. Patient was evaluated by cardiology. Patient has gastroesophageal reflux disease for which patient is on Protonix the pain radiating to the back can be related to the cancerous mass. Rule out pulmonary embolism. Although there is no significant mass that was appreciated on the CAT scan. We'll consult pain management services to assess for celiac nerve block which can help him to take deep breath as patient is not taking deep breaths patient has bilateral atelectasis. His no significant evidence of pneumonia at this time although patient is on Rocephin and azithromycin azithromycin will be discontinued for now we'll continue with Rocephin which probably can be discussed uterine as well. -Shortness of breath, acute hypoxic respiratory failure etiology is not clear probably secondary to restrictive lung disease from obstructive sleep apnea along with atelectasis as patient was not taking deep breaths. There is no evidence of pneumonia at this time. We'll also get the opinion from pulmonary as patient is requiring 3 L frogs and still hypoxic. Celiac nerve block a be helpful, pain management will be consulted and oncology was consulted from ER as well. 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
--- NOTE | 2018-09-07 16:16 | US ---
EXAMINATION TYPE: US abdomen complete DATE OF EXAM: 09/07/2018 COMPARISON: CT CLINICAL HISTORY: abd distension, pain, pancreatic cancer. Assess biliary system; gallbladder removed after ruptured gallbladder per patient EXAM MEASUREMENTS: Liver Length: 15.7 cm Gallbladder Wall: surgically removed CBD: 0.7 cm Spleen: 12.3 cm Right Kidney: 9.2 x 5.1 x 5.2 cm Left Kidney: 10.9 x 7.2 x 5.7 cm Pancreas: area assessed but not seen due to overlying bowel gas Liver: no dilated intrahepatic biliary sytem seen by US; periportal wall brightness is noted; liver is hyperechoic to right renal cortex Gallbladder: surgically absent Evidence for sonographic Barraza's sign: no CBD: wnl post cholecystectomy Spleen: wnl Right Kidney: No hydronephrosis or masses seen Left Kidney: very small cortical cyst seen mid laterally and size = 0.6 x 0.4 x 0.3cm Upper IVC: wnl Abd Aorta: wnl upper as seen; distally gassed out IMPRESSION: 1. Hepatic steatosis. 2. Renal cortical cyst.
--- NOTE | 2018-09-07 18:59 | P.CONS ---
History of Present Illness - Reason for Consult Consult date: 09/07/18 oncology patient Requesting physician: Ace Madison - Chief Complaint back pain with inspiration - History of Present Illness Mr. Shelley is a very pleasant male patient who is treated by Dr. Figueroa at [facility] and received his treatment here with Dr. Nolasco. Pt was initially found to have a solid mass in the neck of pancreas as part of evaluation for pancreatitis in August 2017 at [facility], attempted EUS FNA were negative. CT abdomen 10/12/17 revealed 2.2 x 2.5cm mass at pancreatic neck , he then went to [facility] for further work up. He had EUS on 02/09/18 with FNA which revealed suspicious cells for adenocarcinoma. 02/10/18, PET MR and CT at [facility] revealed suspicious uptake in the mass associated with involvement of the common hepatic artery and gastroduodenal artery, no evidence of metastatic disease, CT chest revealed non specific 3 mm nodule. 02/11/18 had staging laparoscopy with peritoneal washing and biopsy of left diaphragm-all results were negative! He was evaluated by Dr. Curt Figueroa at [facility] who felt pt had at least locally advanced pancreatic cancer, neoadjuvant FOLFIRINOX was recommended and started 03/15/18. Treatment follow up imaging at [facility] on 05/03/18 revealed improvement in disease, PET revealed no metabolic activities in the tumor! Dr. Figueroa recommended 4 additional cycles. Pt resumed modified FOLFIRINOX on 05/25/18. He went back to [facility] on 08/16/18 for treatment follow up PET scan which was stable, it was recommended to continue with 2 more cycles which is scheduled to start Sep 19 Pt is admitted with SOB and back pain, started yesterday, progressive, worse with coughing and deep inspiration, it was making him have hot and cold sweats, pain became severe enough that family brought him to ER where he received a lot of pain meds with fair pain control. He denied fever, oral irritation, expectoration, palpitations, abd bloating is progressive, associated with gas, early satiety and full feeling, he last had a BM yesterday, color and consistency normal for him. He feels about the same as on admit. Pt ate pancakes for breakfast without nausea or vomiting. CTA was negative for PE, CT AP did not reveal any disease progression or new disease that would explain pt pain, amylase and lipase were WNL. Review of Systems 14 point ROS is negative except as stated in HPI Past Medical History Past Medical History: Cancer, Hypertension Additional Past Medical History / Comment(s): pancreatic CA History of Any Multi-Drug Resistant Organisms: None Reported Past Surgical History: Cholecystectomy, Orthopedic Surgery Additional Past Surgical History / Comment(s): B knees Past Psychological History: No Psychological Hx Reported Smoking Status: Former smoker Past Alcohol Use History: Occasional Past Drug Use History: None Reported Medications and Allergies Home Medications Medication Instructions Recorded Confirmed Type Aspirin 1 cap PO DAILY 04/04/18 09/06/18 History Atorvastatin [Lipitor] 40 mg PO DAILY 04/04/18 09/06/18 History Metoprolol Succinate [Toprol XL] 50 mg PO DAILY 04/04/18 09/06/18 History Pantoprazole [Protonix] 40 cap PO DAILY 04/04/18 09/06/18 History Probenecid/Colchicine 1 each PO DAILY 04/04/18 09/06/18 History [Probenecid-Colchicine Tabs] Timolol 0.5% Ophth Soln [Timoptic 1 drop BOTH EYES DAILY 04/04/18 09/06/18 History 0.5% Ophth Soln] amLODIPine BESYLATE [Norvasc] 10 mg PO DAILY 04/04/18 09/06/18 History hydrALAZINE HCL 50 mg PO DAILY 04/04/18 09/06/18 History Allergies Allergy/AdvReac Type Severity Reaction Status Date / Time No Known Allergies Allergy Verified 09/06/18 20:10 Physical Exam Vitals: Vital Signs Temp Pulse Pulse Resp BP BP Pulse Ox 09/07/18 16:00 98 F 74 18 141/70 94 L 09/07/18 10:58 99.2 F 78 20 119/64 89 L 09/07/18 09:00 98 F 75 22 115/66 88 L 09/07/18 04:00 98.1 F 76 18 132/77 97 09/07/18 00:04 97.8 F 09/07/18 00:00 89 18 165/70 09/06/18 23:52 98 F 89 18 165/78 96 09/06/18 23:50 88 16 143/72 94 L 09/06/18 23:30 148/80 09/06/18 23:20 90 148/80 91 L 09/06/18 23:10 91 141/69 93 L 09/06/18 23:00 92 167/81 94 L 09/06/18 22:30 91 151/94 93 L 09/06/18 22:10 87 148/86 94 L 09/06/18 22:00 88 18 139/89 09/06/18 21:20 87 16 161/88 96 09/06/18 20:50 81 128/77 96 09/06/18 20:40 85 156/88 97 09/06/18 20:30 79 158/80 09/06/18 20:20 80 17 158/80 95 09/06/18 20:10 82 142/87 95 09/06/18 19:50 68 154/75 93 L 09/06/18 19:40 164/86 09/06/18 19:31 96 09/06/18 19:05 98.1 F 71 18 172/80 97 Intake and Output 09/07/18 09/07/18 09/07/18 06:59 14:59 22:59 Intake Total 480 300 Output Total 200 Balance 480 -200 300 Intake: Intake, IV Titration 300 Amount Sodium Chloride 0.9% 1, 300 000 ml @ 75 mls/hr IV . [id number] [facility] Rx#:[id number] Oral 480 Output: Urine 200 Other: Voiding Method Toilet Toilet Toilet # Voids 2 Weight 90.2 kg - Constitutional General appearance: cooperative, mild distress, obese - EENT Eyes: anicteric sclerae, EOMI, normal appearance ENT: hearing grossly normal, normal oropharynx - Neck Neck: no lymphadenopathy - Respiratory pt noted to be in pain with cough Respiratory: bilateral: CTA, diminished (bases) - Cardiovascular Rhythm: regular Heart sounds: normal: S1, S2 Abnormal Heart Sounds: no systolic murmur, no diastolic murmur, no rub, no S3 Gallop, no S4 Gallop, no click, no other leg Peripheral Edema: bilateral: None - Gastrointestinal firm, unable to deeper palpate, tympani on percussion, umbilical hernia, 3cm General gastrointestinal: distended - Integumentary Integumentary: normal - Neurologic Neurologic: CNII-XII intact - Musculoskeletal Pain with palpation of T6-8 area, no masses or deformity Musculoskeletal: strength equal bilaterally - Psychiatric Psychiatric: A&O x's 3, appropriate affect, intact judgment & insight Results CBC & Chem 7: 09/06/18 19:29 09/06/18 19:29 Labs: Abnormal Lab Results - Last 24 Hours (Table) 09/06/18 09/06/18 09/06/18 Range/Units 19:29 19:29 19:29 WBC 17.5 H (3.8-10.6) k/uL RBC 4.01 L (4.30-5.90) m/uL Hgb 11.8 L (13.0-17.5) gm/dL Hct 37.0 L (39.0-53.0) % RDW 16.4 H (11.5-15.5) % Neutrophils # 13.1 H (1.3-7.7) k/uL Monocytes # 1.2 H (0-1.0) k/uL Eosinophils # 0.8 H (0-0.7) k/uL D-Dimer 1.37 H (<0.60) mg/L FEU Carbon Dioxide 21 L (22-30) mmol/L BUN 21 H (9-20) mg/dL Creatinine 1.41 H (0.66-1.25) mg/dL Glucose 160 H (74-99) mg/dL Magnesium 1.5 L (1.6-2.3) mg/dL Alkaline Phosphatase 131 H (38-126) U/L CT scan - abdomen: report reviewed CT scan - chest: report reviewed CT scan - pelvis: report reviewed Assessment and Plan (1) Pancreatic cancer Narrative/Plan: CT AP reviewed with pt and daughter at bedside. No evidence of disease progression discussed, no new disease reported. Some gastroparesis mentioned. No vomiting and pt has ate. US abd to evaluate biliary system as pt did present with similar symptoms last year without lab abnormalities and required biliary stent. Plan was for 2 more chemotherapy sessions and some radiation then evaluation for WHIPPLE procedure. Pt chemo is scheduled for Sep 19, appt date and time added to DC summary. Pt has not had treatment since early Jul. Current Visit: Yes Status: Acute Priority: High Code(s): C25.9 - MALIGNANT NEOPLASM OF PANCREAS, UNSPECIFIED SNOMED Code(s): 075053444 Plan: Case was discussed with IM. Plan is for US abd. further recommendations to follow Did discuss case with pt daughters later in the day. Did let them know that pt needs to cough and deep breathe as he is developing atelectasis, they will encourage him. IM consulted pain services to consider celiac plexus nerve block. Once work up completed and correctable causes of pain have been ruled out then pt may consider nerve block, until then please hold off. Cont pain meds. Meds to prevent constipation ordered. Follow up in AM
[2018-09-07] MEDS: SENNOSIDES-DOCUSATE SODIUM 1 EACH TAB PO SCH (20:25)
[2018-09-07] MEDS ORDERED: AZITHROMYCIN 500 MG TAB PO SCH (21:00)
[2018-09-08] MEDS: NITROGLYCERIN OINT 1 INCH/GM PACKET TOPICAL SCH ×5 (00:21→23:02)
[2018-09-08] MEDS: SODIUM CHLORIDE 0.9% 1,000 ML IV SCH ×4 (01:08→20:45)
[2018-09-08] MEDS ORDERED: ENOXAPARIN 100 MG/ML SYRINGE SQ STA (01:30)
[2018-09-08 05:42] LABS: Glucose,Whole Blood 103 mg/dL (75-99)
[2018-09-08] MEDS: PANTOPRAZOLE 40 MG TABLET PO SCH (05:52)
[2018-09-08 07:13] LABS: Anisocytosis Slight; HCT 30.9 % (39.0-53.0); Hypochromasia Moderate; MCH 30.1 pg (25.0-35.0); MCHC 31.9 g/dL (31.0-37.0); MCV 94.3 fL (80.0-100.0); Mean Platelet Volume 7.7; Platelet Count 188 k/uL (150-450); RBC 3.28 m/uL (4.30-5.90); RDW 16.7 % (11.5-15.5); WBC 13.3 k/uL (3.8-10.6)
[2018-09-08 07:17] LABS: Calcium 9.1 mg/dL (8.4-10.2); Magnesium 2.2 mg/dL (1.6-2.3); Potassium 4.4 mmol/L (3.5-5.1)
[2018-09-08 07:22] LABS: HGB 9.9 gm/dL (13.0-17.5)
[2018-09-08] MEDS ORDERED: PANTOPRAZOLE 40 MG TABLET PO SCH (07:30)
[2018-09-08] MEDS ORDERED: ASPIRIN 325 MG TAB PO STA (08:38)
[2018-09-08] MEDS ORDERED: ATORVASTATIN 80 MG TAB PO STA (08:38)
[2018-09-08] MEDS ORDERED: ALPRAZolam 0.5 MG TAB PO PRN (08:38)
[2018-09-08] MEDS ORDERED: SODIUM CHLORIDE 0.9% 1,000 ML in EMPTY BAG 1 BAG IV ONE (08:38)
[2018-09-08] MEDS ORDERED: ALPRAZolam 0.25 MG TAB PO PRN (08:38)
[2018-09-08] MEDS ORDERED: NITROGLYCERIN SL TABS 0.4 MG TAB SUBLINGUAL PRN ×2 (08:38→17:24)
[2018-09-08] MEDS ORDERED: HEPARIN SODIUM,PORCINE 5,000 UNIT/ML 1 ML VIAL IV ONE (08:40)
[2018-09-08] MEDS ORDERED: HEPARIN SODIUM,PORCINE 5,000 UNIT/ML 1 ML VIAL IV PRN (08:40)
[2018-09-08] MEDS ORDERED: HEPARIN SOD,PORK IN 0.45% NACL 25,000 UNIT in 0.45% NACL 1 250ML.BAG IV SCH (08:45)
[2018-09-08] MEDS: TIMOLOL 0.5% OPHTH DROPS 5 ML BTL BOTH EYES SCH (09:14)
[2018-09-08] MEDS: SENNOSIDES-DOCUSATE SODIUM 1 EACH TAB PO SCH ×3 (09:15→23:01)
[2018-09-08] MEDS: METOPROLOL SUCCINATE (ER) 50 MG TAB.ER.24H PO SCH (09:15)
[2018-09-08] MEDS: ASPIRIN 81 MG PO SCH (09:17)
[2018-09-08] MEDS: ATORVASTATIN 40 MG TAB PO SCH (09:17)
[2018-09-08 09:25] LABS: Partial Thromboplastin Time 36.8 sec (22.0-30.0)
--- NOTE | 2018-09-08 10:48 | P.NPCON ---
History of Present Illness - Reason for Consult acute renal failure - History of Present Illness Reason for consultation: Acute kidney injury History of present illness: Patient is a 73-year-old male seen in consultation for acute kidney injury. Patient denies any prior history of kidney disease. Creatinine in May 2018 was 1.1 and is stable around 1.4 this admission. Patient presented to the hospital with chest pain. Patient was feeling well last night was noted to have EKG changes and is scheduled for cardiac catheterization today. Echocardiogram revealed preserved ejection fraction. He also underwent a CTA on September 06 which revealed no evidence of PE. He's currently maintained on normal saline at 75 mL an hour. Admits to good urine output. No hematuria or dysuria. Denies use of NSAIDs. Denies family history of renal disease. No history of diabetes. States he was diagnosed with high blood pressure about 15 years ago. Ultrasound revealed no evidence of hydronephrosis. Patient has history of pancreatic cancer and is maintained on chemotherapy as an outpatient. Last cycle was in July 2018 and his next cycle is scheduled for September 2017. Vital signs are stable. General: The patient appeared well nourished and normally developed. HEENT: Head exam is unremarkable. Neck is without jugular venous distension. LUNGS: Lungs are clear to auscultation and percussion. Breath sounds decreased. HEART: Rate and Rhythm are regular. First and second heart sounds normal. No murmurs, rubs or gallops. ABDOMEN: Abdominal exam reveals normal bowel sounds. Non-tender and non- distended. No evidence of peritonitis. EXTREMITITES: No clubbing, cyanosis, or edema. Past Medical History Past Medical History: Cancer, Hypertension Additional Past Medical History / Comment(s): pancreatic CA History of Any Multi-Drug Resistant Organisms: None Reported Past Surgical History: Cholecystectomy, Orthopedic Surgery Additional Past Surgical History / Comment(s): B knees Past Psychological History: No Psychological Hx Reported Smoking Status: Former smoker Past Alcohol Use History: Occasional Past Drug Use History: None Reported Medications and Allergies Home Medications Medication Instructions Recorded Confirmed Type Aspirin 1 cap PO DAILY 04/04/18 09/06/18 History Atorvastatin [Lipitor] 40 mg PO DAILY 04/04/18 09/06/18 History Metoprolol Succinate [Toprol XL] 50 mg PO DAILY 04/04/18 09/06/18 History Pantoprazole [Protonix] 40 cap PO DAILY 04/04/18 09/06/18 History Probenecid/Colchicine 1 each PO DAILY 04/04/18 09/06/18 History [Probenecid-Colchicine Tabs] Timolol 0.5% Ophth Soln [Timoptic 1 drop BOTH EYES DAILY 04/04/18 09/06/18 History 0.5% Ophth Soln] amLODIPine BESYLATE [Norvasc] 10 mg PO DAILY 04/04/18 09/06/18 History hydrALAZINE HCL 50 mg PO DAILY 04/04/18 09/06/18 History Allergies Allergy/AdvReac Type Severity Reaction Status Date / Time No Known Allergies Allergy Verified 09/06/18 20:10 Physical Exam Vitals: Vital Signs Temp Pulse Resp BP Pulse Ox 09/08/18 08:50 98.6 F 82 18 136/73 92 L 09/08/18 04:00 98.3 F 79 17 158/82 95 09/07/18 23:56 78 17 09/07/18 23:53 98.2 F 78 17 134/63 95 09/07/18 21:07 92 L 09/07/18 20:00 98.2 F 73 17 134/77 92 L 09/07/18 16:00 98 F 74 18 141/70 94 L 09/07/18 10:58 99.2 F 78 20 119/64 89 L Intake and Output 09/07/18 09/08/18 09/08/18 22:59 06:59 14:59 Intake Total 300 1325 Balance 300 1325 Intake: Intake, IV Titration 300 875 Amount Sodium Chloride 0.9% 1, 300 825 000 ml @ 75 mls/hr IV . [id number] [facility] Rx#:[id number] cefTRIAXone 1,000 mg In 50 Sodium Chloride 0.9% 50 ml @ 100 mls/hr IVPB Q24H [facility] Rx#:[id number] Oral 450 Other: Voiding Method Toilet Toilet # Voids 1 Weight 92.9 kg Results - Lab Results Most recent lab results Calcium 9.1 mg/dL (8.4-10.2) 09/08/18 06:07 Magnesium 2.2 mg/dL (1.6-2.3) 09/08/18 06:07 09/08/18 06:07 09/08/18 06:07 Assessment and Plan Plan: Assessment: 1. Acute kidney injury secondary to ATN secondary to contrast-induced nephropathy. Patient received contrast dye on September 06 for CTA. Creatinine stable at 1.39 today. No evidence of hydronephrosis noted on renal ultrasound. Creatinine in May 2018 was 1.1. 2. Chest pain with concern for acute coronary syndrome. Scheduled for cardiac catheterization today. 3. Metabolic acidosis secondary to acute kidney injury and IV fluids. Stable. 4. History of pancreatic cancer maintain on chemotherapy as an outpatient. 5. Benign hypertension. Controlled. Plan: Maintain normal saline at 75 mL an hour. Check urinalysis. Cleared for cardiac catheterization from nephrology standpoint. Discussed with the patient the risk of developing worsening renal failure postcontrast exposure. Patient understands. Repeat electrolytes in the morning. Thank you for the consultation. I will continue to follow the patient during his hospital stay.
--- NOTE | 2018-09-08 11:04 | P.PN ---
Subjective 73-year-old gentleman with came in with the epigastric abdominal pain shortness of breath fourth of were not clearly explained that as of yesterday but patient was later found to have highly elevated troponin of 100. Patient was started on IV heparin and patient is going for cardiac catheterization patient's kidney function is borderline because of which I consulted nephrology and the patient is continue being continued on IV fluids at this time. Patient will go for cardiac catheterization today. His abdominal pain and shortness of breath did improve a little bit Constitutional: Denied any fatigue denied any fever. Cardio vascular: denied any chest pain, palpitations Gastrointestinal denied any nausea vomiting Pulmonary: As mentioned in HPI Neurologic denied any new focal deficits All inpatient medications were reviewed and appropriate changes in these medications as dictated in the interval history and assessment and plan. Objective - Vital Signs Vital signs: Vital Signs Temp 98.6 F 09/08/18 08:50 Pulse 82 09/08/18 08:50 Resp 18 09/08/18 08:50 BP 136/73 09/08/18 08:50 Pulse Ox 88 L 09/08/18 08:50 Intake & Output 09/07/18 09/08/18 09/08/18 18:59 06:59 18:59 Intake Total 300 1325 Output Total 200 Balance 100 1325 Weight 92.9 kg Intake: Intake, IV Titration 300 875 Amount Sodium Chloride 0.9% 1, 300 825 000 ml @ 75 mls/hr IV . [id number] GABRIELA Rx#:[id number] cefTRIAXone 1,000 mg In 50 Sodium Chloride 0.9% 50 ml @ 100 mls/hr IVPB Q24H GABRIELA Rx#:[id number] Oral 450 Output: Urine 200 Other: Voiding Method Toilet Toilet # Voids 1 - Exam PHYSICAL EXAMINATION: GENERAL: The patient is alert and oriented x3, not in any acute distress. Well developed, well nourished. HEENT: Pupils are round and equally reacting to light. EOMI. No scleral icterus. No conjunctival pallor. Normocephalic, atraumatic. No pharyngeal erythema. No thyromegaly. CARDIOVASCULAR: S1 and S2 present. No murmurs, rubs, or gallops. PULMONARY: Chest is clear to auscultation, no wheezing or crackles. ABDOMEN: Soft, nontender, nondistended, normoactive bowel sounds. No palpable organomegaly. MUSCULOSKELETAL: No joint swelling or deformity. EXTREMITIES: No cyanosis, clubbing, or pedal edema. NEUROLOGICAL: Gross neurological examination did not reveal any focal deficits. SKIN: No rashes. - Labs CBC & Chem 7: 09/08/18 06:07 09/08/18 06:07 Labs: Abnormal Lab Results - Last 24 Hours (Table) 09/08/18 09/08/18 09/08/18 Range/Units 01:45 05:40 06:07 WBC 13.3 H (3.8-10.6) k/uL RBC 3.28 L (4.30-5.90) m/uL Hgb 9.9 L D (13.0-17.5) gm/dL Hct 30.9 L (39.0-53.0) % RDW 16.7 H (11.5-15.5) % APTT (22.0-30.0) sec Sodium (137-145) mmol/L Carbon Dioxide (22-30) mmol/L BUN (9-20) mg/dL Creatinine (0.66-1.25) mg/dL POC Glucose (mg/dL) 103 H (75-99) mg/dL Troponin I 106.000 H* (0.000-0.034) ng/mL 09/08/18 09/08/18 09/08/18 Range/Units 06:07 06:07 06:07 WBC (3.8-10.6) k/uL RBC (4.30-5.90) m/uL Hgb (13.0-17.5) gm/dL Hct (39.0-53.0) % RDW (11.5-15.5) % APTT 36.8 H (22.0-30.0) sec Sodium 136 L (137-145) mmol/L Carbon Dioxide 21 L (22-30) mmol/L BUN 23 H (9-20) mg/dL Creatinine 1.39 H (0.66-1.25) mg/dL POC Glucose (mg/dL) (75-99) mg/dL Troponin I 101.000 H* (0.000-0.034) ng/mL Microbiology - Last 24 Hours (Table) 09/06/18 19:29 Blood Culture - Preliminary Blood No Growth after 24 hours Assessment and Plan Plan: -Non-ST elevation myocardial infarction and patient was started on heparin antiplatelet therapy patient is going for cardiac catheterization today -Shortness of breath, acute hypoxic respiratory failure : Probably secondary to acute myocardial infarction along with atelectasis and sleep apnea no evidence of pneumonia and medics will be discontinued -Back pain which is chronic with possible pain from pancreatic cancer -Pancreatic cancer cancer history is receiving chemotherapy -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
--- NOTE | 2018-09-08 12:14 | ECHOF ---
Referral Reason:new abnormal troponins MEASUREMENTS -------- HEIGHT: 172.7 cm WEIGHT: 93.0 kg BP: FINDINGS -------- Undetermined rhythm. Pt had Echo 09/07/18: Repeat Echo for Lv Function. Overall left ventricular systolic function is low-normal with, an EF between 50 - 55 %. There is a small, generalized pericardial effusion present. CONCLUSIONS -------- 1. Pt had Echo 09/07/18: Repeat Echo for Lv Function. 2. Overall left ventricular systolic function is low-normal with, an EF between 50 - 55 %. 3. There is a small, generalized pericardial effusion present. SHREDDING MACHINE TENDER: Niharika Gamez RDCS
[2018-09-08] MEDS ORDERED: LIDOCAINE 1% INJ 10MG/ML (20 ML MDV) ONE (15:55)
[2018-09-08] MEDS ORDERED: HEPARIN SODIUM 1,000 UN/ML (10ML VL) ONE (15:56)
[2018-09-08] MEDS ORDERED: VERAPAMIL 2.5 MG/ML 2 ML AMP ONE (15:56)
[2018-09-08] MEDS ORDERED: MIDAZOLAM 2 MG/2 ML VIAL IVP ONE (16:13)
[2018-09-08] MEDS ORDERED: LIDOCAINE 1% INJ 10MG/ML (20 ML MDV) SQ ONE (16:14)
[2018-09-08] MEDS ORDERED: IV FLUID CONTINUATION 1,000 ML IV ONE (16:15)
[2018-09-08] MEDS ORDERED: BIVALIRUDIN BOLUS 250 MG/50 ML IV ONE (16:40)
[2018-09-08] MEDS ORDERED: CLOPIDOGREL 75 MG TAB ONE (16:41)
[2018-09-08] MEDS ORDERED: CLOPIDOGREL 75 MG TAB PO ONE (16:45)
[2018-09-08] MEDS ORDERED: NITROGLYCERIN 1000MCG/10ML SYRINGE INTRACORON ONE (16:45)
[2018-09-08] MEDS ORDERED: BIVALIRUDIN 250 MG in SODIUM CHLORIDE 0.9% 50 ML IV ONE (16:46)
[2018-09-08] MEDS ORDERED: RX INFO: IV CONTRAST WAS GIVEN 1 EACH MISC MISCELLANE PRN (17:24)
[2018-09-08] MEDS ORDERED: ZOLPIDEM 5 MG TAB PO PRN (17:24)
[2018-09-08] MEDS ORDERED: ATROPINE SULFATE 0.1 MG/ML 10ML SYRINGE IV PRN (17:24)
[2018-09-08] MEDS ORDERED: MAG HYDROX/AL HYDROX/SIMETH 30 ML CUP PO PRN (17:24)
--- NOTE | 2018-09-08 17:32 | P.PN ---
Subjective Patient was interviewed and examined by me this morning. He had a very comfortable night and has no chest discomfort this time. He has this upper back discomfort that has never left him. I will and that he'll very comfortable night no breathing trouble no dizziness no shortness of breath no nausea no upper GI symptoms. When he came in he had very uncomfortable chest upper abdomen and back symptoms but he has not had those since then. I evaluated him yesterday he was virtually pain-free except for a little bit of discomfort in the mid back but the symptoms that he came in with were not present. He had 3 normal cardiac enzymes echo was normal and his EKG did not show any worrisome ST segment abnormalities Last night just before midnight, the information technology internship noted ST elevations on telemetry. The 12-lead ECG was performed and it showed clear-cut ST elevations which were new, consistent with a mid LAD stenosis/occlusion. This was shown to Dr. Jos Layne. He was in the middle of an acute myocardial infarction/ stenting and he advised nitroglycerin and this completely resolved ECG changes. Most importantly at that time the patient had absolutely no new symptoms such as chest discomfort upper GI symptoms dizziness shortness of breath. He was completely comfortable. I interrogated and this morning and he said he had Stroke no symptoms at that time. However his twelve-lead ECG was consistent with an ST elevation. This morning I spoke to him and his daughter and advised proceeding with coronary angiogram. His troponins came back at 100. Prior to that his troponins are normal. Repeat 2-D echo did not show any new changes other than a small generalized pericardial effusion EF was normal. On examination Afebrile 98.6F blood pressure 136/73 mmHg pulse rate in the 80s line breath sounds are clear no rhonchi no crackles Heart sounds S1 and S2 are normal no murmurs or gallops no rub Abdomen soft nontender Extended is warm no edema impression Acute myocardial injury related to likely transient acute occlusion possibly in the mid LAD based on the twelve-lead ECGs from last night Plan Diagnostic coronary angiography and possible stenting. He is undergoing chemotherapy for a pancreatic tumor at the [facility]. Following that he will undergo radiotherapy. Approximately in December of this year he may undergo a Whipple procedure. If he needs a drug-eluting stent we should be since he was about 4 months for antiplatelet therapy This was discussed the patient and his daughter. He did receive Lovenox yesterday I will start IV heparin continue IV nitro continue statins and other medications Objective - Vital Signs Vital signs: Vital Signs Temp 98.8 F 09/08/18 12:30 Pulse 76 09/08/18 12:30 Resp 18 09/08/18 12:30 BP 156/76 09/08/18 12:30 Pulse Ox 90 L 09/08/18 12:30 Intake & Output 09/07/18 09/08/18 09/08/18 18:59 06:59 18:59 Intake Total 300 1325 757.7 Output Total 200 Balance 100 1325 757.7 Weight 92.9 kg Intake: IV 127.7 Intake, IV Titration 300 875 630 Amount Heparin Sod,Pork in 0.45% 30 NaCl 25,000 unit In 0.45 % NaCl 1 250ml.bag @ 10.8 UNITS/KG/HR 10.03 mls/hr IV .Q24H GABRIELA Rx#: [id number] Sodium Chloride 0.9% 1, 300 825 600 000 ml @ 75 mls/hr IV . [id number] GABRIELA Rx#:[id number] cefTRIAXone 1,000 mg In 50 Sodium Chloride 0.9% 50 ml @ 100 mls/hr IVPB Q24H GABRIELA Rx#:[id number] Oral 450 Output: Urine 200 Other: Voiding Method Toilet Toilet # Voids 1 # Bowel Movements 0 - Labs CBC & Chem 7: 09/08/18 06:07 09/08/18 06:07 Labs: Abnormal Lab Results - Last 24 Hours (Table) 09/08/18 09/08/18 09/08/18 Range/Units 01:45 05:40 06:07 WBC 13.3 H (3.8-10.6) k/uL RBC 3.28 L (4.30-5.90) m/uL Hgb 9.9 L D (13.0-17.5) gm/dL Hct 30.9 L (39.0-53.0) % RDW 16.7 H (11.5-15.5) % APTT (22.0-30.0) sec Sodium (137-145) mmol/L Carbon Dioxide (22-30) mmol/L BUN (9-20) mg/dL Creatinine (0.66-1.25) mg/dL POC Glucose (mg/dL) 103 H (75-99) mg/dL Troponin I 106.000 H* (0.000-0.034) ng/mL 09/08/18 09/08/18 09/08/18 Range/Units 06:07 06:07 06:07 WBC (3.8-10.6) k/uL RBC (4.30-5.90) m/uL Hgb (13.0-17.5) gm/dL Hct (39.0-53.0) % RDW (11.5-15.5) % APTT 36.8 H (22.0-30.0) sec Sodium 136 L (137-145) mmol/L Carbon Dioxide 21 L (22-30) mmol/L BUN 23 H (9-20) mg/dL Creatinine 1.39 H (0.66-1.25) mg/dL POC Glucose (mg/dL) (75-99) mg/dL Troponin I 101.000 H* (0.000-0.034) ng/mL Microbiology - Last 24 Hours (Table) 09/06/18 19:29 Blood Culture - Preliminary Blood No Growth after 24 hours
--- NOTE | 2018-09-08 17:56 | CC ---
CARDIAC CATHETERIZATION REPORT DATE OF SERVICE: 09/08/2018 PERFORMING PHYSICIAN: Everardo Fried MD, facilities flight check pilot. PROCEDURES PERFORMED: 1. Selective right and left coronary angiogram. 2. Left heart catheterization. 3. Successful stenting of the mid LAD using 3.5 x 18 mm Xience drug-eluting stent with good angiographic results and reduction of stenosis from 70% to 0%. INDICATION: This is a pleasant 73-year-old gentleman with hypertension, dyslipidemia, history of pancreatic cancer, who presented to the hospital with back pain and he was ruled in for acute bdy-[id number]-[id number] myocardial infarction with troponin of 100. He was seen and evaluated by Dr. Alegre, who recommended proceeding with heart catheterization. APPROACH: Right radial artery. COMPLICATIONS: None. LEVEL OF SEDATION: Moderate PROCEDURE DESCRIPTION: Patient was brought to the cardiac roofing laborer. The right radial artery was cannulated using micropuncture technique. The micropuncture wire passed easily. Then I placed a 6- Moldovan sheath in the right radial artery. After that I gave the patient 2 mg of verapamil IA and I started anticoagulation with Angiomax. Selective right and left coronary angiogram was performed using JR4 and JL3.5 catheters. Left heart catheterization was performed using 6-Moldovan pigtail catheter. After that I intervened on the LAD. Please see separate paragraph for that. SELECTIVE CORONARY ANGIOGRAM: 1. The right coronary artery is a large-caliber vessel and it is a dominant vessel. It has mild disease only in the mid portion. It distally bifurcates into PDA and PLV branches. Both are angiographically normal. 2. The left main is angiographically normal. It bifurcates into left circumflex and left anterior descending artery. 3. The left circumflex is a large-caliber vessel. It is a nondominant vessel. The proximal circumflex appeared to be angiographically normal. The mid circumflex is normal and gives rise to first and second obtuse marginal branches. Both are angiographically normal. The circumflex distally continues to be a small- to medium-caliber vessel in the AV groove. 4. The LAD. The proximal LAD is angiographically normal. It gives rise to a large diagonal branch which appeared to be angiographically normal. The mid LAD has a hazy segment with a lesion that appeared to be in the range of 70%, likely representing plaque rupture and thrombus formation. The LAD distally appeared to be angiographically normal. HEMODYNAMICS: The left ventricular end-diastolic pressure was about 10 mmHg without significant gradient across the aortic valve. PERCUTANEOUS CORONARY INTERVENTION OF LEFT ANTERIOR DESCENDING CORONARY ARTERY: Anticoagulation was initiated using Angiomax. Subsequently I engaged the left main using JL3.5 guide. After that I did wire the LAD using a run-through wire. Subsequently I did direct stenting of the lesion in the LAD using 3.5 x 18 mm Xience drug-eluting stent where the stent was positioned under fluoroscopy guidance and deployed under 16 atmospheres for 20 seconds with the following angiogram showing good angiographic results and reduction of stenosis from 70% to 0%. Procedure was completed without any complication. CONCLUSION: 1. Acute [id number] myocardial infarction. 2. Intermediate to severe lesion involving the mid left anterior descending coronary artery. The lesion seems to be hazy and likely represents plaque rupture and thrombus formation. 3. Successful stenting of the mid left anterior descending coronary artery using a 3.5 x 18 mm Xience drug-eluting stent with good angiographic results. POST-PROCEDURE MANAGEMENT: 1. Maximize medical treatment. 2. Dual anti-platelet therapy. 3. Risk factor modifications. 4. Follow up with the patient. MMODL / IJN: [id number] /
[2018-09-08] MEDS ORDERED: hydrALAZINE HCL 20 MG/ML 1 ML VIAL IVP PRN (18:51)
[2018-09-08] MEDS: amLODIPine 10 MG TAB PO SCH (19:04)
[2018-09-08 20:07] LABS: Appearance,Urine Clear (Clear); Bilirubin,Urine Negative (Negative); Blood,Urine Negative (Negative); Color,Urine Light Yellow; Glucose,Urine (UA) Negative (Negative); Ketones,Urine Negative (Negative); Leukocyte Esterase,Urine Negative (Negative); Nitrite,Urine Negative (Negative); Protein,Urine Trace (Negative); Urobilinogen,Urine <2.0 mg/dL (<2.0)
--- NOTE | 2018-09-08 22:56 | P.PN ---
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 Family states he has been breathing like this the past few days. Chest xray showed atelectesis likely from shallow inspirations from pain and abdominal distention and bloating, no bowel movement in 6 days, states he is passing gas. Objective - Vital Signs Vital signs: Vital Signs Temp 98.6 F 09/08/18 08:50 Pulse 82 09/08/18 08:50 Resp 18 09/08/18 08:50 BP 136/73 09/08/18 08:50 Pulse Ox 88 L 09/08/18 08:50 Intake & Output 09/07/18 09/08/18 09/08/18 18:59 06:59 18:59 Intake Total 300 1325 Output Total 200 Balance 100 1325 Weight 92.9 kg Intake: Intake, IV Titration 300 875 Amount Sodium Chloride 0.9% 1, 300 825 000 ml @ 75 mls/hr IV . [id number] GABRIELA Rx#:[id number] cefTRIAXone 1,000 mg In 50 Sodium Chloride 0.9% 50 ml @ 100 mls/hr IVPB Q24H GABRIELA Rx#:[id number] Oral 450 Output: Urine 200 Other: Voiding Method Toilet Toilet # Voids 1 - Exam - Constitutional General appearance: cooperative, mild distress, obese - EENT Eyes: anicteric sclerae, EOMI, normal appearance ENT: hearing grossly normal, normal oropharynx - Neck Neck: no lymphadenopathy - Respiratory pt noted to be in pain with cough, Positive increased respiratory effort noted with accesory muscle use Respiratory: bilateral: CTA, diminished (bases) - Cardiovascular Rhythm: regular Heart sounds: normal: S1, S2 Abnormal Heart Sounds: no systolic murmur, no diastolic murmur, no rub, no S3 Gallop, no S4 Gallop, no click, no other leg Peripheral Edema: bilateral: None - Gastrointestinal - Distended, Bloating, firm, unable to deeper palpate, tympani on percussion, umbilical hernia, 3cm General gastrointestinal: distended - Integumentary Integumentary: normal - Neurologic Neurologic: CNII-XII intact - Musculoskeletal Pain with palpation of T6-8 area, no masses or deformity Musculoskeletal: strength equal bilaterally - Psychiatric Psychiatric: A&O x's 3, appropriate affect, intact judgment & insight - Labs CBC & Chem 7: 09/08/18 06:07 09/08/18 06:07 Labs: Abnormal Lab Results - Last 24 Hours (Table) 09/08/18 09/08/18 09/08/18 Range/Units 01:45 05:40 06:07 WBC 13.3 H (3.8-10.6) k/uL RBC 3.28 L (4.30-5.90) m/uL Hgb 9.9 L D (13.0-17.5) gm/dL Hct 30.9 L (39.0-53.0) % RDW 16.7 H (11.5-15.5) % APTT (22.0-30.0) sec Sodium (137-145) mmol/L Carbon Dioxide (22-30) mmol/L BUN (9-20) mg/dL Creatinine (0.66-1.25) mg/dL POC Glucose (mg/dL) 103 H (75-99) mg/dL Troponin I 106.000 H* (0.000-0.034) ng/mL 09/08/18 09/08/18 09/08/18 Range/Units 06:07 06:07 06:07 WBC (3.8-10.6) k/uL RBC (4.30-5.90) m/uL Hgb (13.0-17.5) gm/dL Hct (39.0-53.0) % RDW (11.5-15.5) % APTT 36.8 H (22.0-30.0) sec Sodium 136 L (137-145) mmol/L Carbon Dioxide 21 L (22-30) mmol/L BUN 23 H (9-20) mg/dL Creatinine 1.39 H (0.66-1.25) mg/dL POC Glucose (mg/dL) (75-99) mg/dL Troponin I 101.000 H* (0.000-0.034) ng/mL Microbiology - Last 24 Hours (Table) 09/06/18 19:29 Blood Culture - Preliminary Blood No Growth after 24 hours Assessment and Plan Plan: (1) Pancreatic cancer: - Plan was for 2 more chemotherapy sessions and some radiation then evaluation for WHIPPLE procedure. Pt chemo is scheduled for Sep 19, appt date and time added to DC summary. Pt has not had treatment since early Jul. (2) NSTEMI: Cardiac catherization today and Heparin Drip Infusing - Per Cardiology and MM (3) Constipation with abdominal bloating: - No evidence of Ileus or Ascites on imaging - No vomiting - Increase bowel regimen scheduled - Increase Activity (4) Increased Respiratory Effort: - Likely from Atelectesis shallow insppirations - Encourage Incentive spirometer US abd reviewed and no evidence to suggest patients symptoms of pain.
[2018-09-09] MEDS: SODIUM CHLORIDE 0.9% 1,000 ML IV SCH (02:47)
[2018-09-09] MEDS: NITROGLYCERIN OINT 1 INCH/GM PACKET TOPICAL SCH ×2 (06:04→11:32)
[2018-09-09] MEDS: PANTOPRAZOLE 40 MG TABLET PO SCH (06:04)
[2018-09-09 06:42] LABS: Anisocytosis Slight; Basophils % (A) 0 %; Eosinophils # (A) 0.5 k/uL (0-0.7); Eosinophils % (A) 6 %; HCT 30.2 % (39.0-53.0); HGB 9.4 gm/dL (13.0-17.5); Hypochromasia Slight; Lymphocytes % (A) 12 %; MCV 93.5 fL (80.0-100.0); Mean Platelet Volume 7.6; Monocytes # (A) 0.5 k/uL (0-1.0); Monocytes % (A) 6 %; Neutrophils % (A) 73 %; Platelet Count 191 k/uL (150-450); RBC 3.23 m/uL (4.30-5.90); RDW 16.6 % (11.5-15.5); WBC 8.1 k/uL (3.8-10.6)
[2018-09-09 06:58] LABS: Potassium 3.8 mmol/L (3.5-5.1)
[2018-09-09] MEDS: ASPIRIN 81 MG PO SCH (08:33)
[2018-09-09] MEDS: METOPROLOL SUCCINATE (ER) 50 MG TAB.ER.24H PO SCH (08:33)
[2018-09-09] MEDS: CLOPIDOGREL 75 MG TAB PO SCH (08:34)
[2018-09-09] MEDS: amLODIPine 10 MG TAB PO SCH (08:35)
[2018-09-09] MEDS: ATORVASTATIN 40 MG TAB PO SCH (08:35)
[2018-09-09] MEDS: POLYETHYLENE GLYCOL 3350 17 GM POWD.PACK PO SCH (08:35)
[2018-09-09] MEDS: SENNOSIDES-DOCUSATE SODIUM 1 EACH TAB PO SCH ×2 (08:35→20:31)
[2018-09-09] MEDS: TIMOLOL 0.5% OPHTH DROPS 5 ML BTL BOTH EYES SCH (08:35)
--- NOTE | 2018-09-09 09:59 | P.PN ---
Subjective Patient is seen in follow for acute kidney injury. Renal function is better with creatinine at 1.0 today. Patient had cardiac catheterization done on September 08 and had a stent placed to the mid LAD. No active chest pain or shortness of breath. Oral intake is good. Admits to good urine output. Vital signs are stable. General: The patient appeared well nourished and normally developed. HEENT: Head exam is unremarkable. Neck is without jugular venous distension. LUNGS: Lungs are clear to auscultation and percussion. Breath sounds decreased. HEART: Rate and Rhythm are regular. First and second heart sounds normal. No murmurs, rubs or gallops. ABDOMEN: Abdominal exam reveals normal bowel sounds. Non-tender and non- distended. No evidence of peritonitis. EXTREMITITES: No clubbing, cyanosis, or edema. Objective - Vital Signs Vital signs: Vital Signs Temp 98.6 F 09/09/18 03:05 Pulse 85 09/09/18 03:06 Resp 19 09/09/18 03:06 BP 161/76 09/09/18 03:05 Pulse Ox 97 09/09/18 03:05 Intake & Output 09/08/18 09/09/18 09/09/18 18:59 06:59 18:59 Intake Total 757.7 600 240 Balance 757.7 600 240 Weight 89.6 kg Intake: IV 127.7 Intake, IV Titration 630 600 Amount Heparin Sod,Pork in 0.45% 30 NaCl 25,000 unit In 0.45 % NaCl 1 250ml.bag @ 10.8 UNITS/KG/HR 10.03 mls/hr IV .Q24H GABRIELA Rx#: [id number] Sodium Chloride 0.9% 1, 600 600 000 ml @ 75 mls/hr IV . [id number] GABRIELA Rx#:[id number] Oral 0 240 Other: Voiding Method Toilet Urinal # Voids 1 2 # Bowel Movements 0 - Labs CBC & Chem 7: 09/09/18 06:20 09/09/18 06:20 Labs: Abnormal Lab Results - Last 24 Hours (Table) 09/08/18 09/09/18 Range/Units 14:27 06:20 RBC 3.23 L (4.30-5.90) m/uL Hgb 9.4 L (13.0-17.5) gm/dL Hct 30.2 L (39.0-53.0) % RDW 16.6 H (11.5-15.5) % Urine Protein Trace H (Negative) Microbiology - Last 24 Hours (Table) 09/06/18 19:29 Blood Culture - Preliminary Blood No Growth after 48 hours Assessment and Plan Plan: Assessment: 1. Acute kidney injury secondary to ATN secondary to contrast-induced nephropathy. Patient received contrast dye on September 06 for CTA and again on September 08 for cardiac catheterization. Creatinine down to 1.0 today. No evidence of hydronephrosis noted on renal ultrasound. 2. Coronary artery disease status post cardiac catheterization on September 08 with stent placement to the mid LAD. 3. Metabolic acidosis secondary to acute kidney injury and IV fluids. Better. 4. History of pancreatic cancer maintain on chemotherapy as an outpatient. 5. Benign hypertension. Controlled. Plan: Hep-Lock IV fluids. Encouraged oral intake. Continue to monitor renal function and urine output. Repeat electrolytes in the morning.
--- NOTE | 2018-09-09 11:29 | P.PN ---
Subjective 73-year-old gentleman with came in with the epigastric abdominal pain shortness of breath fourth of were not clearly explained that as of yesterday but patient was later found to have highly elevated troponin of 100. Patient was started on IV heparin and patient is going for cardiac catheterization patient's kidney function is borderline because of which I consulted nephrology and the patient is continue being continued on IV fluids at this time. Patient will go for cardiac catheterization today. His abdominal pain and shortness of breath did improve a little bit 09/09/2018 patient underwent cardia catheterization and stenting to LAD, possibility of discharge tomorrow his shadows were completely resolved pain in the abdomen completely resolved Constitutional: Denied any fatigue denied any fever. Cardio vascular: denied any chest pain, palpitations Gastrointestinal denied any nausea vomiting Pulmonary: As mentioned in HPI Neurologic denied any new focal deficits All inpatient medications were reviewed and appropriate changes in these medications as dictated in the interval history and assessment and plan. Objective - Vital Signs Vital signs: Vital Signs Temp 97.2 F L 09/09/18 11:21 Pulse 75 09/09/18 11:21 Resp 18 09/09/18 11:21 BP 166/87 09/09/18 11:21 Pulse Ox 96 09/09/18 11:21 Intake & Output 09/08/18 09/09/18 09/09/18 18:59 06:59 18:59 Intake Total 757.7 600 840 Balance 757.7 600 840 Weight 89.6 kg Intake: IV 127.7 Intake, IV Titration 630 600 600 Amount Heparin Sod,Pork in 0.45% 30 NaCl 25,000 unit In 0.45 % NaCl 1 250ml.bag @ 10.8 UNITS/KG/HR 10.03 mls/hr IV .Q24H GABRIELA Rx#: [id number] Sodium Chloride 0.9% 1, 600 600 600 000 ml @ 75 mls/hr IV . [id number] GABRIELA Rx#:[id number] Oral 0 240 Other: Voiding Method Toilet Urinal # Voids 1 2 # Bowel Movements 0 - Exam PHYSICAL EXAMINATION: GENERAL: The patient is alert and oriented x3, not in any acute distress. Well developed, well nourished. HEENT: Pupils are round and equally reacting to light. EOMI. No scleral icterus. No conjunctival pallor. Normocephalic, atraumatic. No pharyngeal erythema. No thyromegaly. CARDIOVASCULAR: S1 and S2 present. No murmurs, rubs, or gallops. PULMONARY: Chest is clear to auscultation, no wheezing or crackles. ABDOMEN: Soft, nontender, nondistended, normoactive bowel sounds. No palpable organomegaly. MUSCULOSKELETAL: No joint swelling or deformity. EXTREMITIES: No cyanosis, clubbing, or pedal edema. NEUROLOGICAL: Gross neurological examination did not reveal any focal deficits. SKIN: No rashes. - Labs CBC & Chem 7: 09/09/18 06:20 09/09/18 06:20 Labs: Abnormal Lab Results - Last 24 Hours (Table) 09/08/18 09/09/18 Range/Units 14: 06:20 RBC 3.23 L (4.30-5.90) m/uL Hgb 9.4 L (13.0-17.5) gm/dL Hct 30.2 L (39.0-53.0) % RDW 16.6 H (11.5-15.5) % Urine Protein Trace H (Negative) Microbiology - Last 24 Hours (Table) 09/06/18 19:29 Blood Culture - Preliminary Blood No Growth after 48 hours Assessment and Plan Plan: -Non-ST elevation myocardial infarction and patient was is on antiplatelet therapy , status post stenting to LAD -Shortness of breath, acute hypoxic respiratory failure : Probably secondary to acute myocardial infarction along with atelectasis and sleep apnea no evidence of pneumonia . 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
[2018-09-09] MEDS ORDERED: methylPREDNISolone ACETATE 80 MG/ML 1 ML VIAL IM STA (11:33)
[2018-09-09] MEDS ORDERED: IPRATROPIUM-ALBUTEROL 3 ML NEB INHALATION PRN (11:33)
--- NOTE | 2018-09-09 12:20 | P.PN ---
Subjective Progress Note Date: 09/09/18 This is a pleasant 73-year-old gentleman with history of pancreatic cancer who is currently undergoing chemo and radiation and subsequently will undergo a Whipple procedure in November or December of this year. He presented to the hospital with an acute myocardial infarction, he was taken to the cardiac catheterization lab yesterday where he underwent angioplasty and stenting of the LAD. Troponin peaked at 106. He was seen and examined this morning, ambulating in the hallway without any difficulty. Mildly wheezy on examination. Blood pressure 160/80 heart rate in the 70s 96% on room air. He is currently on aspirin 81 mg daily, Lipitor which we will increase to 80 mg daily, Plavix 75 mg daily, metoprolol 50 mg daily, discontinue Nitropaste, add losartan to his medication regime. He's been encouraged to be up ambulating in the hallway today as tolerated. We'll also repeat a chest x-ray today. Plan for possible discharge home in 24-48 hours if stable. Objective - Vital Signs Vital signs: Vital Signs Temp 97.2 F L 09/09/18 11:21 Pulse 75 09/09/18 11:21 Resp 18 09/09/18 11:21 BP 149/51 09/09/18 11:37 Pulse Ox 96 09/09/18 11:21 Intake & Output 09/08/18 09/09/18 09/09/18 18:59 06:59 18:59 Intake Total 757.7 600 840 Balance 757.7 600 840 Weight 89.6 kg 89.6 kg Intake: IV 127.7 Intake, IV Titration 630 600 600 Amount Heparin Sod,Pork in 0.45% 30 NaCl 25,000 unit In 0.45 % NaCl 1 250ml.bag @ 10.8 UNITS/KG/HR 10.03 mls/hr IV .Q24H [facility] Rx#: [id number] Sodium Chloride 0.9% 1, 600 600 600 000 ml @ 75 mls/hr IV . [id number] [facility] Rx#:[id number] Oral 0 240 Other: Voiding Method Toilet Urinal # Voids 1 2 # Bowel Movements 0 - Exam PHYSICAL EXAMINATION: GENERAL: 89-year-old gentleman in no acute distress at the time of my examination HEENT: Head is atraumatic, normocephalic. Pupils equal, round. Sclera anicteric. Conjunctiva are clear. Mucous membranes of the mouth are moist. Neck is supple. There is no elevated jugular venous pressure. No carotid bruit is heard. HEART EXAMINATION: Heart S1, S2 normal. No murmur or gallop heard. CHEST EXAMINATION: Lungs reveal mild diminished air entry to the bases with mild wheezing noted throughout. ABDOMEN: Soft, nontender. Bowel sounds are heard. No organomegaly noted. EXTREMITIES: 2+ peripheral pulses with no evidence of peripheral edema and no calf tenderness noted. Right radial site clean and dry, good distal pulse. NEUROLOGIC patient is awake, alert and oriented 3 . . - Labs CBC & Chem 7: 09/09/18 06:20 09/09/18 06:20 Labs: Abnormal Lab Results - Last 24 Hours (Table) 09/08/18 09/09/18 Range/Units 14:27 06:20 RBC 3.23 L (4.30-5.90) m/uL Hgb 9.4 L (13.0-17.5) gm/dL Hct 30.2 L (39.0-53.0) % RDW 16.6 H (11.5-15.5) % Urine Protein Trace H (Negative) Microbiology - Last 24 Hours (Table) 09/06/18 19:29 Blood Culture - Preliminary Blood No Growth after 48 hours Assessment and Plan Plan: Assessment and plan #1 non-ST elevation PA status post angioplasty and stenting of the mid LAD #2 hypertension #3 hyperlipidemia Plan We will add losartan to the patient's medication regime for more optimal blood pressure control. Continue the rest of his medications. Increase his activity as tolerated and plan for possible discharge home in 24-48 hours if stable. DNP note has been reviewed, I agree with a documented findings and plan of care. Patient was seen and examined.
--- NOTE | 2018-09-09 13:09 | CONS ---
CONSULTATION DATE OF SERVICE: 09/09/2018 This is a 73-year-old male who presents to the emergency department with chest discomfort. We are asked to see him because of underlying COPD. He was a heavy smoker in the past. He smoked 20 years at 3 packs a day. He was seen by my nurse practitioner in the office a while back and was given some steroids for what appeared to be a case of chronic bronchitis. He likely has some underlying COPD. I believe it is moderate in severity. I believe his FEV1 is 65% of predicted. Anyway, he apparently had some chest pain, underwent a cardiac catheterization. He was found to have a high-grade stenosis in the mid LAD. He had an angioplasty and a drug-eluting stent placed by Dr. Fried. From that standpoint, he is doing better. He states that he does have a cough. He does produce occasional phlegm. In addition, the patient states that his wheezing and shortness of breath seem to be more significant when he is lying back. Anyway, the patient was started on some updrafts today and also gave him some Depo-Medrol 80 mg IM. MEDICATIONS: His home medications include aspirin, Lipitor, metoprolol, Protonix, colchicine/probenecid tablets, eye drops, amlodipine, and hydralazine. ALLERGIES: Allergies are denied. MEDICAL HISTORY: Medical history includes pancreatic cancer, hypertension, COPD, hyperlipidemia, and arthritis. SURGICAL HISTORY: Surgical history includes among other things, cholecystectomy, and orthopedic procedures to his knees. SOCIAL HISTORY: Social history is positive for previous tobacco use, again smoked 20 years, 3 packs a day. Quit many years back. The rest of the history is not too remarkable. REVIEW OF SYSTEMS: CONSTITUTIONAL: Negative. NEUROLOGIC: Negative. HEENT: Negative. CARDIOVASCULAR: Chest pain. PULMONARY: Cough, phlegm production and shortness of breath, particularly when he is lying down. He also has some wheezing when he lies flat. GI/: Negative. RHEUMATOLOGIC: Negative. HEMATOLOGIC: Negative. ENDOCRINOLOGIC: Negative. DERMATOLOGIC: Negative. PHYSICAL EXAMINATION: Current examination reveals vital signs to be 97.2 for temperature, heart rate 75, respiratory rate 18, blood pressure 166/87, mean 113, room air saturation 96%. The patient is in no acute distress. No respiratory distress. No audible wheezing. No use of accessory muscles. HEENT examination is grossly unremarkable. Mucous membranes are moist. NECK: Supple. Full range of motion. No adenopathy, thyromegaly or neck vein distention. Cardiovascular examination reveals regular rhythm and rate. S1, S2 normal. No S3, S4, or murmur. Lungs reveal expiratory wheezes. Breath sounds are congested and wet sounding. No rhonchi. Slight prolongation. No crackles. ABDOMEN: Soft. Bowel sounds are heard. Extremities are intact. No cyanosis, clubbing, or edema. Skin without rash. Neurologic examination is brief but nonfocal. Lab data reviewed. His troponins were 0.012, 0.031 and then 101.0. N terminal proBNP 579. Urine was clean. Sodium, potassium, chloride, CO2 all normal. Anion gap normal. BUN and creatinine were normal. White count 8.1, hemoglobin 9.4, hematocrit 30.2, and platelet count 191,000. Microbiologic studies were negative. A chest x-ray was done. It showed cardiomegaly, but no acute disease. A CT angiogram of the chest was done. It showed cardiomegaly without evidence of pulmonary embolism. There was some atelectasis noted. The rest of the studies are not remarkable. ASSESSMENT: 1. Mild chronic obstructive pulmonary disease exacerbation in a patient with a previous heavy tobacco use of 60 pack-years. 2. Status post angioplasty and placement of a drug-eluting stent in his mid left anterior descending artery. 3. Non ST-segment elevation myocardial infarction. 4. History of pancreatic cancer. 5. History of hypertension. 6. History of hyperlipidemia. 7. History of gout. 8. Previous heavy tobacco history. PLAN: The patient gets breathing treatments in the form of DuoNeb q.i.d. and p.r.n. We also give him Depo-Medrol 80 mg IM, that will happen today. He will be discharged apparently according to the nurses tomorrow. I will see him back in the office. Additional recommendations and suggestions will be made at that time. MMODL / IJN: [id number] /
--- NOTE | 2018-09-09 13:36 | P.PN ---
Subjective Progress Note Date: 09/09/18 Principal diagnosis: back pain Pt seen in f/u, s/p cardiac cath with drug eluding stent placement. He feels so much better-no SOB, back pain, appetite is good. Objective - Vital Signs Vital signs: Vital Signs Temp 97.2 F L 09/09/18 11:21 Pulse 75 09/09/18 11:21 Resp 18 09/09/18 11:21 BP 149/51 09/09/18 11:37 Pulse Ox 96 09/09/18 11:21 Intake & Output 09/08/18 09/09/18 09/09/18 18:59 06:59 18:59 Intake Total 757.7 600 960 Balance 757.7 600 960 Weight 89.6 kg 89.6 kg Intake: IV 127.7 Intake, IV Titration 630 600 600 Amount Heparin Sod,Pork in 0.45% 30 NaCl 25,000 unit In 0.45 % NaCl 1 250ml.bag @ 10.8 UNITS/KG/HR 10.03 mls/hr IV .Q24H [facility] Rx#: [id number] Sodium Chloride 0.9% 1, 600 600 600 000 ml @ 75 mls/hr IV . [id number] [facility] Rx#:[id number] Oral 0 360 Other: Voiding Method Toilet Urinal # Voids 1 2 # Bowel Movements 0 - Constitutional General appearance: Present: cooperative, no acute distress, obese - EENT Eyes: Present: anicteric sclerae ENT: Present: hearing grossly normal - Respiratory Respiratory: bilateral: CTA - Cardiovascular Heart sounds: normal: S1, S2 Abnormal Heart Sounds: Absent: systolic murmur, diastolic murmur, rub, S3 Gallop , S4 Gallop, click, other - Peripheral edema leg Peripheral Edema: bilateral: None - Gastrointestinal General gastrointestinal: Present: normal bowel sounds, soft - Integumentary Integumentary: Present: normal - Neurologic Neurologic: Present: CNII-XII intact - Musculoskeletal Musculoskeletal: Present: strength equal bilaterally - Psychiatric Psychiatric: Present: A&O x's 3, appropriate affect, intact judgment & insight - Labs CBC & Chem 7: 09/09/18 06:20 09/09/18 06:20 Labs: Abnormal Lab Results - Last 24 Hours (Table) 09/08/18 09/09/18 Range/Units 14:27 06:20 RBC 3.23 L (4.30-5.90) m/uL Hgb 9.4 L (13.0-17.5) gm/dL Hct 30.2 L (39.0-53.0) % RDW 16.6 H (11.5-15.5) % Urine Protein Trace H (Negative) Microbiology - Last 24 Hours (Table) 09/06/18 19:29 Blood Culture - Preliminary Blood No Growth after 48 hours Assessment and Plan (1) Pancreatic cancer Narrative/Plan: Plan is to continue neoadjuvant treatment as scheduled. Pt has 2 cycles left prior to surgical eval for WHIPPLE procedure, curative intent. Treatment is due next week, stay on schedule. Pt and family verbalized understanding Encouraged pt ambulate and be as active as Cardiology recommends so he can be in good shape for surgery. We compromised on a fairly heart healthy diet plan Current Visit: Yes Status: Acute Priority: High Code(s): C25.9 - MALIGNANT NEOPLASM OF PANCREAS, UNSPECIFIED SNOMED Code(s): 343693354
[2018-09-09] MEDS: IPRATROPIUM-ALBUTEROL 3 ML NEB INHALATION SCH ×3 (13:43→20:17)
[2018-09-10] MEDS: PANTOPRAZOLE 40 MG TABLET PO SCH (06:29)
[2018-09-10 06:51] LABS: Anisocytosis Slight; Basophils % (A) 0 %; Eosinophils # (A) 0.4 k/uL (0-0.7); Eosinophils % (A) 5 %; HCT 30.9 % (39.0-53.0); HGB 9.9 gm/dL (13.0-17.5); Lymphocytes # (A) 1.1 k/uL (1.0-4.8); Lymphocytes % (A) 15 %; MCH 29.4 pg (25.0-35.0); MCHC 32.1 g/dL (31.0-37.0); MCV 91.6 fL (80.0-100.0); Mean Platelet Volume 7.6; Monocytes # (A) 0.5 k/uL (0-1.0); Monocytes % (A) 6 %; Neutrophils # (A) 5.1 k/uL (1.3-7.7); Neutrophils % (A) 71 %; Platelet Count 212 k/uL (150-450); RBC 3.38 m/uL (4.30-5.90); RDW 16.2 % (11.5-15.5); WBC 7.2 k/uL (3.8-10.6)
[2018-09-10 07:00] LABS: Calcium 9.3 mg/dL (8.4-10.2); Potassium 3.4 mmol/L (3.5-5.1)
[2018-09-10] MEDS: IPRATROPIUM-ALBUTEROL 3 ML NEB INHALATION SCH ×2 (08:45→12:14)
[2018-09-10] MEDS ORDERED: ATORVASTATIN 80 MG TAB PO SCH (09:00)
[2018-09-10] MEDS: POLYETHYLENE GLYCOL 3350 17 GM POWD.PACK PO SCH (09:20)
[2018-09-10] MEDS: CLOPIDOGREL 75 MG TAB PO SCH (09:21)
[2018-09-10] MEDS: ASPIRIN 81 MG PO SCH (09:21)
[2018-09-10] MEDS: TIMOLOL 0.5% OPHTH DROPS 5 ML BTL BOTH EYES SCH (09:21)
[2018-09-10] MEDS: amLODIPine 10 MG TAB PO SCH (09:21)
[2018-09-10] MEDS: METOPROLOL SUCCINATE (ER) 50 MG TAB.ER.24H PO SCH (09:21)
[2018-09-10] MEDS: SENNOSIDES-DOCUSATE SODIUM 1 EACH TAB PO SCH (09:24)
[2018-09-10] MEDS ORDERED: POTASSIUM CHLORIDE ER 20 MEQ TAB.ER PO STA (09:27)
--- NOTE | 2018-09-10 09:56 | P.PN ---
Subjective Patient is seen in follow for acute kidney injury. Renal function is stable today. Patient had cardiac catheterization done on September 08 and had a stent placed to the mid LAD. No active chest pain or shortness of breath. Oral intake is good. Admits to good urine output. No active complaints at this time. Vital signs are stable. General: The patient appeared well nourished and normally developed. HEENT: Head exam is unremarkable. Neck is without jugular venous distension. LUNGS: Lungs are clear to auscultation and percussion. Breath sounds decreased. HEART: Rate and Rhythm are regular. First and second heart sounds normal. No murmurs, rubs or gallops. ABDOMEN: Abdominal exam reveals normal bowel sounds. Non-tender and non- distended. No evidence of peritonitis. EXTREMITITES: No clubbing, cyanosis, or edema. Objective - Vital Signs Vital signs: Vital Signs Temp 97.9 F 09/10/18 04:00 Pulse 76 09/10/18 08:58 Resp 16 09/10/18 04:00 BP 122/70 09/10/18 04:00 Pulse Ox 100 09/10/18 04:00 Intake & Output 09/09/18 09/10/18 09/10/18 18:59 06:59 18:59 Intake Total 1200 480 240 Output Total 800 Balance 1200 -320 240 Weight 89.6 kg 87.9 kg Intake: Intake, IV Titration 600 Amount Sodium Chloride 0.9% 1, 600 000 ml @ 75 mls/hr IV . [id number] [facility] Rx#:[id number] Oral 600 480 240 Output: Urine 800 Other: Voiding Method Toilet Urinal # Voids 2 # Bowel Movements 0 2 - Labs CBC & Chem 7: 09/10/18 06:03 09/10/18 06:03 Labs: Abnormal Lab Results - Last 24 Hours (Table) 09/10/18 09/10/18 Range/Units 06:03 06:03 RBC 3.38 L (4.30-5.90) m/uL Hgb 9.9 L (13.0-17.5) gm/dL Hct 30.9 L (39.0-53.0) % RDW 16.2 H (11.5-15.5) % Potassium 3.4 L (3.5-5.1) mmol/L Glucose 110 H (74-99) mg/dL Microbiology - Last 24 Hours (Table) 09/06/18 19:29 Blood Culture - Preliminary Blood No Growth after 72 hours Assessment and Plan Plan: Assessment: 1. Acute kidney injury secondary to ATN secondary to contrast-induced nephropathy. Patient received contrast dye on September 06 for CTA and again on September 08 for cardiac catheterization. Renal function stable. No evidence of hydronephrosis noted on renal ultrasound. 2. Coronary artery disease status post cardiac catheterization on September 08 with stent placement to the mid LAD. 3. Metabolic acidosis secondary to acute kidney injury and IV fluids. Better. 4. History of pancreatic cancer maintain on chemotherapy as an outpatient. 5. Benign hypertension. Controlled. 6. Mild hypokalemia from poor oral intake. Plan: Encouraged oral intake. Continue to monitor renal function and urine output. Replace potassium. 40 mg once today. Stable for discharge from nephrology standpoint. Repeat basic metabolic panel in 2-3 days postdischarge. Follow up outpatient in the next 1-2 weeks.
[2018-09-10 10:42] VITALS: TEMP 98
[2018-09-10 12:21] VITALS: BP 142/67; PULSE 67; RESP 18
--- NOTE | 2018-09-10 13:34 | P.PN ---
Subjective Patient is doing well. His breathing is lot better today. He denies any chest discomfort dizziness lightheadedness and no upper back discomfort He underwent successful stenting of the mid LAD plaque rupture which resulted in acute HI with a troponin up 100 but with reperfusion hence the troponins lisa significantly LV function remained preserved in follow-up On examination he is afebrile pulse rate is in the 60s, blood pressure 100/67 mmHg Breath sounds are clear no crackles rhonchorous breath sounds bilaterally Heart sounds 1 soft no murmurs or gallops Abdomen is soft nontender External is warm no edema impression Acute anterior wall HI mid LAD plaque rupture status post drug-eluting stent Preserved LV size and systolic function History of pancreatic cancer currently undergoing chemotherapy subsequently radiotherapy and perhaps a Whipple procedure in about 4 months Hypertension Plan May go home today on dual antiplatelet therapy statins losartan and amlodipine Home medications include atorvastatin 80 mg by mouth daily, aspirin, Plavix, losartan 50 g daily, metoprolol succinate 50 mrem daily and amlodipine 10 mg daily Seen in the office in 2 weeks Objective - Vital Signs Vital signs: Vital Signs Temp 98 F 09/10/18 12:00 Pulse 67 09/10/18 12:00 Resp 18 09/10/18 12:00 BP 142/67 09/10/18 12:00 Pulse Ox 93 L 09/10/18 12:00 Intake & Output 09/09/18 09/10/18 09/10/18 18:59 06:59 18:59 Intake Total 1200 480 240 Output Total 800 Balance 1200 -320 240 Weight 89.6 kg 87.9 kg Intake: Intake, IV Titration 600 Amount Sodium Chloride 0.9% 1, 600 000 ml @ 75 mls/hr IV . [id number] [facility] Rx#:[id number] Oral 600 480 240 Output: Urine 800 Other: Voiding Method Toilet Toilet Urinal Urinal # Voids 2 1 # Bowel Movements 0 2 - Labs CBC & Chem 7: 09/10/18 06:03 09/10/18 06:03 Labs: Abnormal Lab Results - Last 24 Hours (Table) 09/10/18 09/10/18 Range/Units 06:03 06:03 RBC 3.38 L (4.30-5.90) m/uL Hgb 9.9 L (13.0-17.5) gm/dL Hct 30.9 L (39.0-53.0) % RDW 16.2 H (11.5-15.5) % Potassium 3.4 L (3.5-5.1) mmol/L Glucose 110 H (74-99) mg/dL Microbiology - Last 24 Hours (Table) 09/06/18 19:29 Blood Culture - Preliminary Blood No Growth after 72 hours
--- NOTE | 2018-09-10 14:01 | PN ---
PROGRESS NOTE This is a patient we saw yesterday in consultation. We thought he had a very mild COPD exacerbation secondary to 60 pack year history of tobacco use. He is status post angioplasty and placement of a drug-eluting stent in the mid left anterior descending coronary artery. He had a non ST-segment elevation myocardial infarction. He also has a history of pancreatic cancer, hypertension, hyperlipidemia, gout and previous heavy tobacco history. Yesterday, we asked the nurses to give him Depo-Medrol 80 mg IM. We also ordered some breathing treatments. I am happy to report that he is feeling much better today and he will likely be discharged home today. PHYSICAL EXAMINATION: His current vital signs include temperature 98, heart rate 67, respiratory rate 16. Blood pressure 142/67, mean 92, room air saturation 95%. Appears in no acute distress. HEENT examination is grossly unremarkable. Mucous membranes are moist. NECK: Supple. Cardiovascular examination reveals regular rhythm and rate. S1, S2 normal. LUNGS: Much clearer today. No wheezes, rhonchi, or crackles. Breath sounds equal bilaterally. ABDOMEN: Soft. Bowel sounds are heard. Extremities are intact. No cyanosis, clubbing, or edema. Skin without rash. Neurologic examination is brief but nonfocal. ASSESSMENT: 1. Mild chronic obstructive pulmonary disease exacerbation in a patient with a previous heavy tobacco use of 60 pack-years. 2. Status post angioplasty of the left anterior descending coronary artery. 3. Non ST-segment elevation myocardial infarction. 4. History of pancreatic cancer. 5. Benign essential hypertension. 6. Hyperlipidemia. 7. Gout. 8. Previous heavy tobacco use. PLAN: The patient is going to be discharged. He is feeling better. Breathing treatments have helped. He will follow up with our nurse practitioner in the office. No additional recommendations are made. Prognosis is guarded. MMODL / IJN: [id number] /
[2018-09-10] MEDS ORDERED: LOSARTAN 50 MG TAB PO SCH (21:00)
--- NOTE | 2018-09-11 11:21 | DS ---
DISCHARGE SUMMARY FINAL DIAGNOSES: 1. Acute non ST segment elevation myocardial infarction status post cardiac cath and stenting of the LAD. 2. Shortness of breath, acute hypoxic respiratory failure possibly secondary to myocardial infarction and atelectasis. 3. History of back pain. 4. History of pancreatic cancer on chemotherapy. 5. Peripheral neuropathy. 6. Hypertension. 7. Constipation. 8. History of gastroesophageal reflux disease. DISCHARGE DISPOSITION: The patient is being discharged in stable condition with guarded prognosis. HISTORY OF PRESENT ILLNESS: This 73-year-old gentleman with a past medical history of multiple medical problems, was admitted with features of acute non ST-elevation myocardial infarction. Cardiology saw the patient and performed a cardiac catheterization and LAD stent was placed. The patient was treated medically. Improved significantly and the patient was ready to go home and cardiology cleared the patient for discharge. Dr. Fried inserted a Xience drug-eluting stent with good angiographic results in the mid LAD. PHYSICAL EXAMINATION: On exam, vitals are stable. Cardiovascular: S1, S2 muffled. Abdomen soft. Nervous system: No focal deficits. DISCHARGE ADVICE AND MEDICATIONS: 1. Discharge diet is cardiac. 2. Activity limited until follow up. 3. Follow up with primary physician in 1-2 days. 4. Follow up with the hematology/oncology and Cardiology and pulmonology as recommended. DISCHARGE MEDICATIONS: As follows: 1. Lipitor 80 mg p.o. daily. 2. Protonix 40 mg p.o. daily. 3. Probenecid 1 p.o. daily. 4. Timoptic 1 drop both eyes daily. 5. Norvasc 10 mg p.o. daily. 6. Aspirin 81 mg daily. 7. Lipitor 80 mg daily. 8. Plavix 75 mg p.o. daily. 9. Cozaar 50 mg p.o. daily. 10.Toprol-XL 50 mg p.o. daily. MMODL / IJN: [id number] /
== END 2018-09-10 14:02 | disposition home or self-care (01) | DRG 246 ==
LOC: EC 19:01 → 3SCARD 22:06
PROVIDERS: ADMIT Internal Medicine; ATTEND Internal Medicine
PROC: B2111ZZ Fluoroscopy of Multiple Coronary Arteries using Low Osmolar Contrast (ICD-10-PCS; 2018-09-08)
PROC: 027034Z Dilation of Coronary Artery, One Artery with Drug-eluting Intraluminal Device, Percutaneous Approach (ICD-10-PCS; principal; 2018-09-08 15:55)
PROC: 4A023N7 Measurement of Cardiac Sampling and Pressure, Left Heart, Percutaneous Approach (ICD-10-PCS; 2018-09-08 15:55)
DX: I21.4 Non-ST elevation (NSTEMI) myocardial infarction (principal); J96.01 Acute respiratory failure with hypoxia; N17.0 Acute kidney failure with tubular necrosis; C25.9 Malignant neoplasm of pancreas, unspecified; E87.2 Acidosis; J44.1 Chronic obstructive pulmonary disease with (acute) exacerbation; J98.11 Atelectasis; I71.2 Thoracic aortic aneurysm, without rupture; G62.0 Drug-induced polyneuropathy; K31.84 Gastroparesis; N14.1 Nephropathy induced by other drugs, medicaments and biological substances; I45.10 Unspecified right bundle-branch block; T50.8X5A Adverse effect of diagnostic agents, initial encounter; T40.605A Adverse effect of unspecified narcotics, initial encounter; T45.1X5A Adverse effect of antineoplastic and immunosuppressive drugs, initial encounter; E78.5 Hyperlipidemia, unspecified; E87.6 Hypokalemia; G47.33 Obstructive sleep apnea (adult) (pediatric); G89.29 Other chronic pain; I10 Essential (primary) hypertension; I25.10 Atherosclerotic heart disease of native coronary artery without angina pectoris; K21.9 Gastro-esophageal reflux disease without esophagitis; K29.70 Gastritis, unspecified, without bleeding; K59.03 Drug induced constipation; M10.9 Gout, unspecified; M19.90 Unspecified osteoarthritis, unspecified site; M54.9 Dorsalgia, unspecified; E66.9 Obesity, unspecified; Z68.29 Body mass index [BMI] 29.0-29.9, adult; Z79.899 Other long term (current) drug therapy; Z87.891 Personal history of nicotine dependence; Z90.49 Acquired absence of other specified parts of digestive tract; Y92.239 Unspecified place in hospital as the place of occurrence of the external cause
CPT/HCPCS: 36415; 71046; 71275; 74176; 76700; 80048; 80053; 80061; 81003; 82150; 82550; 82553; 83690; 83735; 83880; 84484; 85025; 85027; 85379; 85610; 85730; 87040; 93005; 93306; 93308; 93458; 94640; 96361; 96365; 96368; 96375; 96376; 99285; C1874

== ENCOUNTER → 2018-12-09 | Outpatient (CLI) | payer MEDICARE ==
[2018-12-09 12:18] LABS: Anisocytosis Slight; Basophils % (A) 0 %; Eosinophils # (A) 0.1 k/uL (0-0.7); Eosinophils % (A) 1 %; HCT 35.9 % (39.0-53.0); HGB 11.3 gm/dL (13.0-17.5); Lymphocytes # (A) 0.6 k/uL (1.0-4.8); Lymphocytes % (A) 4 %; MCH 28.4 pg (25.0-35.0); MCHC 31.6 g/dL (31.0-37.0); Mean Platelet Volume 7.8; Monocytes # (A) 1.2 k/uL (0-1.0); Monocytes % (A) 9 %; Neutrophils # (A) 12.1 k/uL (1.3-7.7); Neutrophils % (A) 85 %; Platelet Count 205 k/uL (150-450); RBC 3.99 m/uL (4.30-5.90); RDW 18.7 % (11.5-15.5); WBC 14.2 k/uL (3.8-10.6)
[2018-12-09 19:57] LABS: Anion Gap 9.3 mmol/L (4.00-12.00); Carbon Dioxide 26.7 mmol/L (21.6-31.8); Potassium 3.9 mmol/L (3.5-5.5)
[2018-12-09 22:32] LABS: Hemoglobin A1C 8.8 % (4.0-6.0)
== END | disposition home or self-care (01) ==
LOC: LABWHC1 11:06
PROVIDERS: ATTEND Radiology Radiation Oncology
DX: C25.7 Malignant neoplasm of other parts of pancreas (principal); C25.0 Malignant neoplasm of head of pancreas; R35.1 Nocturia; R91.1 Solitary pulmonary nodule
CPT/HCPCS: 36415; 80048; 83036; 85025

== ENCOUNTER → 2018-12-15 | Outpatient (CLI) | payer MEDICARE ==
[2018-12-15 09:20] LABS: Anion Gap 7 mmol/L; Blood Urea Nitrogen 33 mg/dL (9-20); Calcium 9.7 mg/dL (8.4-10.2); Carbon Dioxide 30 mmol/L (22-30); Chloride 101 mmol/L (98-107); Glucose 279 mg/dL (74-99); Potassium 4.2 mmol/L (3.5-5.1); Sodium 138 mmol/L (137-145)
== END ==
LOC: LABWHC1 08:28
PROVIDERS: ATTEND Radiology Radiation Oncology
DX: C25.7 Malignant neoplasm of other parts of pancreas (principal); R91.1 Solitary pulmonary nodule; Z92.21 Personal history of antineoplastic chemotherapy
CPT/HCPCS: 36415; 80048

== ENCOUNTER → 2018-12-21 | Outpatient (CLI) | payer MEDICARE ==
[2018-12-21 17:36] LABS: Anion Gap 11.3 mmol/L (4.00-12.00); Calcium 9.2 mg/dL (8.7-10.3); Carbon Dioxide 22.7 mmol/L (21.6-31.8); Potassium 4.1 mmol/L (3.5-5.5)
== END | disposition home or self-care (01) ==
LOC: LABWHC1 08:23
PROVIDERS: ATTEND Radiology Radiation Oncology
DX: C25.7 Malignant neoplasm of other parts of pancreas (principal); R91.1 Solitary pulmonary nodule; Z92.21 Personal history of antineoplastic chemotherapy
CPT/HCPCS: 36415; 80048

== ENCOUNTER 2019-01-19 08:01 | Inpatient (IN) | payer MEDICARE ==
[2019-01-19] MEDS ORDERED: fentaNYL (PF) 50 MCG/ML 2 ML AMP IV STA ×2 (08:32→11:24)
--- NOTE | 2019-01-19 08:35 | ED ---
Extremity Problem HPI - General Chief complaint: Extremity Problem,Nontraumatic Stated complaint: Leg pain Time Seen by Provider: 01/19/19 08:19 Source: patient, family, RN notes reviewed Mode of arrival: wheelchair Limitations: no limitations - History of Present Illness Initial comments: This is a 73-year-old male with a history of a recent attempted a Whipple procedure at [facility] for pancreatic cancer who presents with complaints of right greater than left sided lower extremity pain for the past 4 days. He states he does have a history of gout is not sure whether this is what is causing the pain. He denies any fevers chills nausea vomiting sweats he states his appetite is coming back. He does state his right foot and lower extremity hurts more than the left he denies any trauma any other modifying factors at this time. He is on Plavix and another shot for anticoagulation. He's not sure the name of the other medication. MD Complaint: extremity pain - Related Data Home Medications Medication Instructions Recorded Confirmed Pantoprazole [Protonix] 40 cap PO DAILY 04/04/18 01/19/19 Timolol 0.5% Ophth Soln [Timoptic 1 drop BOTH EYES DAILY 04/04/18 01/19/19 0.5% Ophth Soln] Aspirin 81 mg PO DAILY 01/19/19 01/19/19 Enoxaparin [Lovenox] 40 mg SQ DAILY 01/19/19 01/19/19 Metoprolol Succinate [Toprol Xl] 100 mg PO DAILY 01/19/19 01/19/19 Previous Rx's Medication Instructions Recorded Atorvastatin [Lipitor] 80 mg PO DAILY #30 tab 09/10/18 Clopidogrel [Plavix] 75 mg PO DAILY #30 tab 09/10/18 Losartan [Cozaar] 50 mg PO DAILY #30 tab 09/10/18 amLODIPine BESYLATE [Norvasc] 10 mg PO DAILY #30 tablet 09/10/18 Allergies Allergy/AdvReac Type Severity Reaction Status Date / Time glipizide Allergy Rash/Hives Verified 01/19/19 08:23 Review of Systems ROS Statement: Those systems with pertinent positive or pertinent negative responses have been documented in the HPI. ROS Other: All systems not noted in ROS Statement are negative. Past Medical History Past Medical History: Cancer, Hypertension Additional Past Medical History / Comment(s): pancreatic CA History of Any Multi-Drug Resistant Organisms: None Reported Past Surgical History: Cholecystectomy, Orthopedic Surgery Additional Past Surgical History / Comment(s): B knees, abd sx 12/30 Past Psychological History: No Psychological Hx Reported Smoking Status: Former smoker Past Alcohol Use History: None Reported Past Drug Use History: None Reported General Exam - General Exam Comments Initial Comments: This is a well-developed well-nourished awake alert oriented 3 male Limitations: no limitations General appearance: alert, in no apparent distress Head exam: Present: atraumatic, normocephalic, normal inspection Eye exam: Present: normal appearance, PERRL, EOMI. Absent: scleral icterus, conjunctival injection, periorbital swelling ENT exam: Present: normal exam, mucous membranes moist Neck exam: Present: normal inspection. Absent: tenderness, meningismus, lymphadenopathy Respiratory exam: Present: normal lung sounds bilaterally. Absent: respiratory distress, wheezes, rales, rhonchi, stridor Cardiovascular Exam: Present: regular rate, normal rhythm, normal heart sounds. Absent: systolic murmur, diastolic murmur, rubs, gallop, clicks GI/Abdominal exam: Present: soft, normal bowel sounds, other (Well-healing midline surgical scar with sutures still intact. No evidence of any wound dehiscence or drainage. Minimal discomfort to palpation no guarding.). Absent: distended, tenderness, guarding, rebound, rigid Rectal exam: Present: deferred Extremities exam: Present: full ROM, tenderness (Examination lower extremities demonstrates equal pulses bilaterally there is erythema with increased localized temperature to the dorsum of the right foot and also to the first metatarsal phalangeal joint area with tenderness palpation of the foot especially plantar aspect. No calf tenderness no evidence of calf swelling. No Homans sign.), normal capillary refill. Absent: pedal edema, joint swelling, calf tenderness Back exam: Present: normal inspection Neurological exam: Present: alert, oriented X3, CN II-XII intact Psychiatric exam: Present: normal affect, normal mood Skin exam: Present: warm, dry, intact, normal color. Absent: rash Course Vital Signs 01/19/19 08:04 Temperature 97.8 F Pulse Rate 91 Respiratory 18 Rate Blood Pressure 159/77 O2 Sat by Pulse 98 Oximetry Medical Decision Making - Medical Decision Making I did a long discussion the patient family members. Patient does demonstrate evidence of cellulitis the right lower extremity in addition to DVT in addition to hypokalemia and hypomagnesemia. Patient is 2 weeks postop at this time patient will be admitted consultation will be made Dr. Nolasco. I did discuss case with Dr. Noriega - Lab Data Result diagrams: 01/19/19 08:55 01/19/19 08:55 Lab Results 01/19/19 01/19/19 01/19/19 Range/Units 08:55 08:55 08:55 WBC 14.6 H (3.8-10.6) k/uL RBC 3.29 L (4.30-5.90) m/uL Hgb 9.7 L D (13.0-17.5) gm/dL Hct 30.5 L (39.0-53.0) % MCV 92.6 (80.0-100.0) fL MCH 29.5 (25.0-35.0) pg MCHC 31.8 (31.0-37.0) g/dL RDW 15.6 H (11.5-15.5) % Plt Count 398 (150-450) k/uL Neutrophils % 72 % Lymphocytes % 5 % Monocytes % 6 % Eosinophils % 14 % Basophils % 0 % Neutrophils # 10.6 H (1.3-7.7) k/uL Lymphocytes # 0.8 L (1.0-4.8) k/uL Monocytes # 0.9 (0-1.0) k/uL Eosinophils # 2.1 H (0-0.7) k/uL Basophils # 0.0 (0-0.2) k/uL Differential Comment Manual Slide Review Performed Hypochromasia Slight Sodium 139 (137-145) mmol/L Potassium 3.1 L (3.5-5.1) mmol/L Chloride 104 (98-107) mmol/L Carbon Dioxide 26 (22-30) mmol/L Anion Gap 9 mmol/L BUN 15 (9-20) mg/dL Creatinine 1.43 H (0.66-1.25) mg/dL Est GFR (CKD-EPI)AfAm 57 (>60 ml/min/1.73 sqM) Est GFR (CKD-EPI)NonAf 49 (>60 ml/min/1.73 sqM) Glucose 106 H (74-99) mg/dL Plasma Lactic Acid Nathan (0.7-2.0) mmol/L Uric Acid 7.5 (3.5-8.5) mg/dL Calcium 8.9 (8.4-10.2) mg/dL Magnesium 1.0 L (1.6-2.3) mg/dL Total Bilirubin 0.5 (0.2-1.3) mg/dL AST 33 (17-59) U/L ALT 48 (21-72) U/L Alkaline Phosphatase 160 H (38-126) U/L Total Creatine Kinase 49 L (55-170) U/L CK-MB (CK-2) 0.3 (0.0-2.4) ng/mL CK-MB (CK-2) Rel Index 0.6 Total Protein 6.2 L (6.3-8.2) g/dL Albumin 3.5 (3.5-5.0) g/dL Urine Color Urine Appearance (Clear) Urine pH (5.0-8.0) Ur Specific [place] (1.001-1.035) Urine Protein (Negative) Urine Glucose (UA) (Negative) Urine Ketones (Negative) Urine Blood (Negative) Urine Nitrite (Negative) Urine Bilirubin (Negative) Urine Urobilinogen (<2.0) mg/dL Ur Leukocyte Esterase (Negative) 01/19/19 01/19/19 Range/Units 08:55 09:39 WBC (3.8-10.6) k/uL RBC (4.30-5.90) m/uL Hgb (13.0-17.5) gm/dL Hct (39.0-53.0) % MCV (80.0-100.0) fL MCH (25.0-35.0) pg MCHC (31.0-37.0) g/dL RDW (11.5-15.5) % Plt Count (150-450) k/uL Neutrophils % % Lymphocytes % % Monocytes % % Eosinophils % % Basophils % % Neutrophils # (1.3-7.7) k/uL Lymphocytes # (1.0-4.8) k/uL Monocytes # (0-1.0) k/uL Eosinophils # (0-0.7) k/uL Basophils # (0-0.2) k/uL Differential Comment Manual Slide Review Hypochromasia Sodium (137-145) mmol/L Potassium (3.5-5.1) mmol/L Chloride (98-107) mmol/L Carbon Dioxide (22-30) mmol/L Anion Gap mmol/L BUN (9-20) mg/dL Creatinine (0.66-1.25) mg/dL Est GFR (CKD-EPI)AfAm (>60 ml/min/1.73 sqM) Est GFR (CKD-EPI)NonAf (>60 ml/min/1.73 sqM) Glucose (74-99) mg/dL Plasma Lactic Acid Nathan 1.1 (0.7-2.0) mmol/L Uric Acid (3.5-8.5) mg/dL Calcium (8.4-10.2) mg/dL Magnesium (1.6-2.3) mg/dL Total Bilirubin (0.2-1.3) mg/dL AST (17-59) U/L ALT (21-72) U/L Alkaline Phosphatase (38-126) U/L Total Creatine Kinase (55-170) U/L CK-MB (CK-2) (0.0-2.4) ng/mL CK-MB (CK-2) Rel Index Total Protein (6.3-8.2) g/dL Albumin (3.5-5.0) g/dL Urine Color Light Yellow Urine Appearance Clear (Clear) Urine pH 5.0 (5.0-8.0) Ur Specific [place] 1.013 (1.001-1.035) Urine Protein Negative (Negative) Urine Glucose (UA) Negative (Negative) Urine Ketones Negative (Negative) Urine Blood Negative (Negative) Urine Nitrite Negative (Negative) Urine Bilirubin Negative (Negative) Urine Urobilinogen <2.0 (<2.0) mg/dL Ur Leukocyte Esterase Negative (Negative) - Radiology Data Radiology results: report reviewed (I did review the imaging and report x-ray shows some evidence of soft tissue swelling ultrasound showed evidence of thrombosis.), image reviewed Disposition Clinical Impression: Deep vein thrombosis of lower extremity, Cellulitis of right foot, Hypomagnesemia syndrome, Hypokalemia, Pancreatic cancer Disposition: ADMITTED IP TO THIS [facility] Condition: Fair Referrals: Nonstaff,Physician [Primary Care Provider] - 1-2 days
--- NOTE | 2019-01-19 09:25 | XR ---
EXAMINATION TYPE: XR foot complete RT DATE OF EXAM: 01/19/2019 CLINICAL HISTORY: Pain redness and swelling. TECHNIQUE: Frontal, lateral, and oblique images of the right foot are obtained. COMPARISON: None FINDINGS: There is no acute fracture/dislocation evident in the right foot. There is hallux valgus p ositioning first metatarsophalangeal joint with moderate to severe narrowing and mild spurring. Some faint ossifications are seen along medial aspect of first metatarsal head . Osseous structures are de mineralized. Small sized inferior calcaneal spur is noted. Mild diffuse subcutaneous edema in the sof t tissue is present. IMPRESSION: As above
[2019-01-19 09:43] LABS: Basophils % (A) 0 %; Eosinophils # (A) 2.1 k/uL (0-0.7); Eosinophils % (A) 14 %; HCT 30.5 % (39.0-53.0); Hypochromasia Slight; Lymphocytes # (A) 0.8 k/uL (1.0-4.8); Lymphocytes % (A) 5 %; MCH 29.5 pg (25.0-35.0); MCHC 31.8 g/dL (31.0-37.0); MCV 92.6 fL (80.0-100.0); Mean Platelet Volume 7.2; Monocytes # (A) 0.9 k/uL (0-1.0); Monocytes % (A) 6 %; Neutrophils # (A) 10.6 k/uL (1.3-7.7); Neutrophils % (A) 72 %; Platelet Count 398 k/uL (150-450); RBC 3.29 m/uL (4.30-5.90); RDW 15.6 % (11.5-15.5); WBC 14.6 k/uL (3.8-10.6)
[2019-01-19 09:46] LABS: HGB 9.7 gm/dL (13.0-17.5)
[2019-01-19 09:48] LABS: Albumin 3.5 g/dL (3.5-5.0); Calcium 8.9 mg/dL (8.4-10.2); Potassium 3.1 mmol/L (3.5-5.1); Total Bilirubin 0.5 mg/dL (0.2-1.3); Total Protein 6.2 g/dL (6.3-8.2); Uric Acid 7.5 mg/dL (3.5-8.5)
[2019-01-19] MEDS ORDERED: MAGNESIUM SULFATE-D5W PMX 1 GM in DEXTROSE/WATER 1 100ML.BAG IVPB ONE (10:03)
[2019-01-19 10:08] LABS: Appearance,Urine Clear (Clear); Bilirubin,Urine Negative (Negative); Blood,Urine Negative (Negative); Color,Urine Light Yellow; Glucose,Urine (UA) Negative (Negative); Ketones,Urine Negative (Negative); Leukocyte Esterase,Urine Negative (Negative); Nitrite,Urine Negative (Negative); Protein,Urine Negative (Negative); Specific Gravity,Urine 1.013 (1.001-1.035); Urobilinogen,Urine <2.0 mg/dL (<2.0)
[2019-01-19 10:19] LABS: Creatine Kinase MB 0.3 ng/mL (0.0-2.4)
--- NOTE | 2019-01-19 13:04 | US ---
EXAMINATION TYPE: US venous doppler duplex LE DATE OF EXAM: 01/19/2019 11:18 AM COMPARISON: NONE CLINICAL HISTORY: Pain. SIDE PERFORMED: TECHNIQUE: The lower extremity deep venous system is examined utilizing real time linear array sonog brad with graded compression, doppler sonography and color-flow sonography. VESSELS IMAGED: External Iliac Vein (EIV) Common Femoral Vein Deep Femoral Vein Greater Saphenous Vein * Femoral Vein Popliteal Vein Small Saphenous Vein * Proximal Calf Veins (* superficial vessels) Right Leg: ?Non occluding thrombus right distal popliteal. Unable to compress at this level, however color doppler shows only a slight defect on 2nd look. Left Leg: Negative for DVT Grayscale, color doppler, spectral doppler imaging performed of the deep veins of the bilateral lowe r extremities. IMPRESSION: There is suspected acute partially occlusive thrombus right distal popliteal vein below t he knee given noncompressibility.
[2019-01-19] MEDS ORDERED: cefTRIAXone IN SWFI 1,000 MG/10 ML SYRINGE IVP STA (14:46)
[2019-01-19] MEDS ORDERED: PIPERACILLIN-TAZOBACTAM 3.375 GM in SODIUM CHLORIDE 0.9% 100 ML IVPB STA (14:46)
[2019-01-19] MEDS ORDERED: HYDROmorphone 1 MG/ML 1 ML SYRINGE IVP STA (14:48)
[2019-01-19] MEDS ORDERED: HEPARIN SODIUM,PORCINE 10,000 UNIT/ML 1 ML VIAL IV ONE (14:49)
[2019-01-19] MEDS ORDERED: HEPARIN SODIUM,PORCINE 5,000 UNIT/ML 1 ML VIAL IV PRN (14:49)
[2019-01-19] MEDS ORDERED: NALOXONE 0.4 MG/ML 1 ML VIAL IV PRN (14:59)
[2019-01-19] MEDS: HEPARIN SOD,PORK IN 0.45% NACL 25,000 UNIT in 0.45% NACL 1 250ML.BAG IV SCH (15:40)
[2019-01-19 16:02] LABS: Partial Thromboplastin Time 27.2 sec (22.0-30.0); Prothrombin Time 10.3 sec (9.0-12.0)
--- NOTE | 2019-01-19 16:13 | XR ---
EXAMINATION TYPE: XR chest 2V DATE OF EXAM: 01/19/2019 COMPARISON: 09/07/2018 HISTORY: 73-year-old male with cough TECHNIQUE: AP and lateral views FINDINGS: Right anterior chest wall injection port. Catheter remains looped in the IJV. Heart mildly enlarged. Mild diffuse interstitial prominence is similar. No consolidation or pleural effusion. IMPRESSION: Stable cardiomegaly and chronic changes. No definite acute process. Right anterior chest wall injection port. The distal aspect of the catheter remains looped in the IJV .
--- NOTE | 2019-01-19 17:16 | P.HPIM ---
History of Present Illness Chief Complaint: Leg pain This very pleasant 73-year-old gentleman comes in with above-mentioned complaints. Patient apparently has a history of primary cancer and he was at [facility] where he was supposed to get Whipple's procedure. He said that the procedure was not able to be completed as the tumor was invading the vasculature. They sutured him back up and he got 4 units of blood as he lost a lot of blood. 2 days ago the patient noticed that he's having pain in his right leg mostly in the dorsum of the foot. It was not improving. He comes to the ER for further evaluation and management. Patient otherwise does not complain of any chest pain or racing heart, no cough no shortness of breath, he does not complain of any abdominal pain, he does not complain of any diarrhea constipation, no nausea and vomiting, no tingling numbness on his extremities, no itch or rash ER course-temperature 98.2 pulse 90 respiration 150/90 satting 94% on room air. WBC 14.6 hemoglobin 9.7 platelets 398 sodium 139 potassium 3.1 BUN 15 creatinine 1.43. Patient was started on Zosyn and admitted to the hospitalist service a further evaluation and management. Patient also had a ultrasound done of his right lower extremity showed acute partially occlusive thrombus of the distal right popliteal pain. patient also started on heparin drip Review of Systems All systems: negative Past Medical History Past Medical History: Cancer, Hypertension Additional Past Medical History / Comment(s): pancreatic CA History of Any Multi-Drug Resistant Organisms: None Reported Past Surgical History: Cholecystectomy, Orthopedic Surgery Additional Past Surgical History / Comment(s): B knees, abd sx 12/30 Past Psychological History: No Psychological Hx Reported Smoking Status: Former smoker Past Alcohol Use History: None Reported Past Drug Use History: None Reported Medications and Allergies Home Medications Medication Instructions Recorded Confirmed Type Pantoprazole [Protonix] 40 cap PO DAILY 04/04/18 01/19/19 History Timolol 0.5% Ophth Soln [Timoptic 1 drop BOTH EYES DAILY 04/04/18 01/19/19 History 0.5% Ophth Soln] Atorvastatin [Lipitor] 80 mg PO DAILY #30 tab 09/10/18 01/19/19 Rx Clopidogrel [Plavix] 75 mg PO DAILY #30 tab 09/10/18 01/19/19 Rx Losartan [Cozaar] 50 mg PO DAILY #30 tab 09/10/18 01/19/19 Rx amLODIPine BESYLATE [Norvasc] 10 mg PO DAILY #30 tablet 09/10/18 01/19/19 Rx Aspirin 81 mg PO DAILY 01/19/19 01/19/19 History Enoxaparin [Lovenox] 40 mg SQ DAILY 01/19/19 01/19/19 History Metoprolol Succinate [Toprol Xl] 100 mg PO DAILY 01/19/19 01/19/19 History Allergies Allergy/AdvReac Type Severity Reaction Status Date / Time glipizide Allergy Rash/Hives Verified 01/19/19 08:23 Physical Exam Vitals: Vital Signs Temp Pulse Resp BP Pulse Ox 01/19/19 16:21 98.2 F 98 19 150/90 94 L 01/19/19 08:04 97.8 F 91 18 159/77 98 Intake and Output 01/19/19 01/19/19 01/19/19 06:59 14:59 22:59 Other: Weight 83.915 kg On exam, alert and oriented x3. HEENT: Conjunctivae normal. eyes normal. NECK: No JVD. No thyroid enlargement. No LNs CARDIOVASCULAR: S1-S2 positive RESPIRATION: Breath sounds diminished in the bases. No rhonchi or crackles. No bronchial breathing. ABDOMEN: Soft, nontender . No guarding. no masses palpable. No ascites, No hepatosplenomegaly.Bowel sounds heard. LEGS: She has erythema and tenderness in the dorsum of the right foot. He also has some tender calluses on the site of the first toe NERVOUS SYSTEM: Cranial N 2-12 grossly normal. Moves all 4 limbs. No focal deficits. No sensory deficit. No signs of cerebellar dysfucntion. Skin: no ulcer no rash Results CBC & Chem 7: 01/19/19 08:55 01/19/19 08:55 Labs: Abnormal Lab Results - Last 24 Hours (Table) 01/19/19 01/19/19 01/19/19 Range/Units 08:55 08:55 08:55 WBC 14.6 H (3.8-10.6) k/uL RBC 3.29 L (4.30-5.90) m/uL Hgb 9.7 L D (13.0-17.5) gm/dL Hct 30.5 L (39.0-53.0) % RDW 15.6 H (11.5-15.5) % Neutrophils # 10.6 H (1.3-7.7) k/uL Lymphocytes # 0.8 L (1.0-4.8) k/uL Eosinophils # 2.1 H (0-0.7) k/uL Potassium 3.1 L (3.5-5.1) mmol/L Creatinine 1.43 H (0.66-1.25) mg/dL Glucose 106 H (74-99) mg/dL Magnesium 1.0 L (1.6-2.3) mg/dL Alkaline Phosphatase 160 H (38-126) U/L Total Creatine Kinase 49 L (55-170) U/L Total Protein 6.2 L (6.3-8.2) g/dL Assessment and Plan Assessment: - Cellulitis in the right lower extremity - DVT and right lower extremity - History of primary cancer - History of hypertension - Pseudogout Plan - We'll admit the patient to selective unit - We'll continue antibiotics - The area service has been demarcated - Continue heparin - Hematology oncology consulted - Resume home medications - DVT and GI prophylaxis - We'll order for lab work in the morning - Expected length of stay more than 2 midnights - Patient is full code Time with Patient: Greater than 30
[2019-01-19] MEDS ORDERED: Potassium Replacement Protocol 1 EACH MISC MISCELLANE PRN (17:22)
[2019-01-19] MEDS: 0.9% NACL WITH KCL 20 MEQ/L 1,000 ML IV SCH (17:23)
[2019-01-19] MEDS: POTASSIUM CHLORIDE ER 20 MEQ TAB.ER PO SCH ×2 (18:15→21:26)
[2019-01-19] MEDS: HYDROmorphone 1 MG/ML 1 ML SYRINGE IVP PRN ×2 (18:18→21:23)
[2019-01-20] MEDS: HYDROmorphone 1 MG/ML 1 ML SYRINGE IVP PRN ×5 (00:12→17:31)
[2019-01-20] MEDS: PIPERACILLIN-TAZOBACTAM 3.375 GM in SODIUM CHLORIDE 0.9% 100 ML IVPB SCH ×2 (00:14→08:52)
[2019-01-20] MEDS: PANTOPRAZOLE 40 MG TABLET PO SCH (06:23)
[2019-01-20 08:22] LABS: Calcium 8.5 mg/dL (8.4-10.2); Potassium 3.3 mmol/L (3.5-5.1)
[2019-01-20 08:23] LABS: Basophils # (A) 0.1 k/uL (0-0.2); Basophils % (A) 0 %; Eosinophils # (A) 1.8 k/uL (0-0.7); Eosinophils % (A) 10 %; HCT 30.8 % (39.0-53.0); HGB 9.7 gm/dL (13.0-17.5); Hypochromasia Moderate; Lymphocytes # (A) 0.9 k/uL (1.0-4.8); Lymphocytes % (A) 5 %; MCH 29.6 pg (25.0-35.0); MCHC 31.6 g/dL (31.0-37.0); MCV 93.7 fL (80.0-100.0); Mean Platelet Volume 7.4; Monocytes # (A) 1.5 k/uL (0-1.0); Monocytes % (A) 8 %; Neutrophils # (A) 13.4 k/uL (1.3-7.7); Neutrophils % (A) 75 %; Platelet Count 360 k/uL (150-450); RBC 3.28 m/uL (4.30-5.90); RDW 15.6 % (11.5-15.5)
[2019-01-20] MEDS: TIMOLOL 0.5% OPHTH DROPS 5 ML BTL BOTH EYES SCH (08:51)
[2019-01-20] MEDS: METOPROLOL SUCCINATE (ER) 100 MG TAB.ER.24H PO SCH (08:52)
[2019-01-20] MEDS: CLOPIDOGREL 75 MG TAB PO SCH (08:53)
[2019-01-20] MEDS: ASPIRIN 81 MG PO SCH (08:53)
[2019-01-20] MEDS: ATORVASTATIN 80 MG TAB PO SCH (08:53)
[2019-01-20] MEDS: amLODIPine 10 MG TAB PO SCH (08:53)
[2019-01-20] MEDS ORDERED: LOSARTAN 50 MG TAB PO SCH (09:00)
[2019-01-20] MEDS: HEPARIN SOD,PORK IN 0.45% NACL 25,000 UNIT in 0.45% NACL 1 250ML.BAG IV SCH (09:02)
[2019-01-20] MEDS ORDERED: Potassium Replacement Protocol 1 EACH MISC MISCELLANE PRN (10:53)
[2019-01-20] MEDS ORDERED: Magnesium Replacement Protocol 1 EACH MISC MISCELLANE PRN (11:38)
--- NOTE | 2019-01-20 11:46 | P.PN ---
Subjective This very pleasant 73-year-old gentleman comes in with above-mentioned complaints. Patient apparently has a history of primary cancer and he was at [facility] where he was supposed to get Whipple's procedure. He said that the procedure was not able to be completed as the tumor was invading the vasculature. They sutured him back up and he got 4 units of blood as he lost a lot of blood. 2 days ago the patient noticed that he's having pain in his right leg mostly in the dorsum of the foot. It was not improving. He comes to the ER for further evaluation and management. Patient otherwise does not complain of any chest pain or racing heart, no cough no shortness of breath, he does not complain of any abdominal pain, he does not complain of any diarrhea constipation, no nausea and vomiting, no tingling numbness on his extremities, no itch or rash On 01/20/2019 Patient still complaining of pain in his right leg especially on the dorsum of the foot. He says Dilaudid not relieving the pain No chest pain or racing heart No cough no shortness of breath No pain in the belly sutures looking dry and healing well Objective - Vital Signs Vital signs: Vital Signs Temp 99 F 01/20/19 08:00 Pulse 110 H 01/20/19 08:00 Resp 18 01/20/19 08:00 BP 171/77 01/20/19 08:00 Pulse Ox 92 L 01/20/19 08:00 Intake & Output 01/19/19 01/20/19 01/20/19 18:59 06:59 18:59 Intake Total 360 649.763 347.409 Output Total 125 1060 250 Balance 235 -410.237 97.409 Weight 83.915 kg 82.5 kg Intake: IV 40 Invasive Line 1 40 Intake, IV Titration 609.763 107.409 Amount 0.9% NaCl with KCl 20 Meq 400 /l 1,000 ml @ 50 mls/hr IV .Q20H GABRIELA Rx#: [id number] Heparin Sod,Pork in 0.45% 109.763 107.409 NaCl 25,000 unit In 0.45 % NaCl 1 250ml.bag @ 18 UNITS/KG/HR 15.105 mls/hr IV .[id number] GABRIELA Rx#: [id number] Piperacillin-Tazobactam 3 100 .375 gm In Sodium Chloride 0.9% 100 ml @ 200 mls/hr IVPB ONCE STA Rx#:[id number] Oral 360 240 Output: Urine 125 1060 250 Other: Voiding Method Urinal # Voids 1 1 1 - Exam On exam, alert and oriented x3. HEENT: Conjunctivae normal. eyes normal. NECK: No JVD. No thyroid enlargement. No LNs CARDIOVASCULAR: S1-S2 positive RESPIRATION: Breath sounds diminished in the bases. No rhonchi or crackles. No bronchial breathing. ABDOMEN: Soft, nontender . No guarding. no masses palpable. No ascites, No hepatosplenomegaly.Bowel sounds heard. The abdominal scar is dry and healing well LEGS: he has erythema and tenderness in the dorsum of the right foot. He also has some tender calluses on the side of the first toe medially and bilaterally NERVOUS SYSTEM: Cranial N 2-12 grossly normal. Moves all 4 limbs. No focal deficits. No sensory deficit. No signs of cerebellar dysfucntion. Skin: no ulcer no rash - Labs CBC & Chem 7: 01/20/19 07:34 01/20/19 07:34 Labs: Abnormal Lab Results - Last 24 Hours (Table) 01/19/19 01/20/19 01/20/19 Range/Units 21:35 07:34 07:34 WBC 18.0 H (3.8-10.6) k/uL RBC 3.28 L (4.30-5.90) m/uL Hgb 9.7 L (13.0-17.5) gm/dL Hct 30.8 L (39.0-53.0) % RDW 15.6 H (11.5-15.5) % Neutrophils # 13.4 H (1.3-7.7) k/uL Lymphocytes # 0.9 L (1.0-4.8) k/uL Monocytes # 1.5 H (0-1.0) k/uL Eosinophils # 1.8 H (0-0.7) k/uL APTT 104.1 H* (22.0-30.0) sec Potassium 3.3 L (3.5-5.1) mmol/L Creatinine 1.30 H (0.66-1.25) mg/dL Glucose 140 H (74-99) mg/dL Magnesium 1.0 L (1.6-2.3) mg/dL 01/20/19 Range/Units 07:34 WBC (3.8-10.6) k/uL RBC (4.30-5.90) m/uL Hgb (13.0-17.5) gm/dL Hct (39.0-53.0) % RDW (11.5-15.5) % Neutrophils # (1.3-7.7) k/uL Lymphocytes # (1.0-4.8) k/uL Monocytes # (0-1.0) k/uL Eosinophils # (0-0.7) k/uL APTT 60.7 H (22.0-30.0) sec Potassium (3.5-5.1) mmol/L Creatinine (0.66-1.25) mg/dL Glucose (74-99) mg/dL Magnesium (1.6-2.3) mg/dL Microbiology - Last 24 Hours (Table) 01/19/19 08:55 Blood Culture - Preliminary Blood No Growth after 24 hours Assessment and Plan Assessment: - Cellulitis in the right lower extremity - Leukocytosis - DVT and right lower extremity - History of primary cancer - History of hypertension - Pseudogout Plan - Patient's WBC is increased. We'll consult infectious disease for their recommendations - Continue heparin drip. Hematology oncology consulted - Patient thinks that is probably gout attack.Will order for colchicine and see how he responds - Will continue the medications - Will f/u Time with Patient: Greater than 30
[2019-01-20] MEDS: POTASSIUM CHLORIDE ER 20 MEQ TAB.ER PO SCH ×3 (11:49→15:06)
[2019-01-20] MEDS: 0.9% NACL WITH KCL 20 MEQ/L 1,000 ML IV SCH (11:50)
[2019-01-20] MEDS: MAGNESIUM SULFATE-D5W PMX 1 GM in DEXTROSE/WATER 1 100ML.BAG IVPB SCH ×3 (11:50→14:58)
[2019-01-20] MEDS ORDERED: KETOROLAC 30 MG/ML 1 ML VIAL IVP STA (11:54)
[2019-01-20] MEDS ORDERED: POLYETHYLENE GLYCOL 3350 17 GM POWD.PACK PO PRN (11:55)
[2019-01-20] MEDS ORDERED: ACETAMINOPHEN IV (For NPO) 1,000 MG in EMPTY BAG 1 BAG IVPB PRN (12:06)
[2019-01-20] MEDS: COLCHICINE 0.6 MG EACH PO SCH ×2 (12:26→21:02)
[2019-01-20] MEDS: LOSARTAN 50 MG TAB PO SCH (13:37)
[2019-01-20] MEDS: ceFAZolin IN SWFI 2 GM/20 ML SYRINGE IVP SCH ×2 (17:34→23:50)
[2019-01-20] MEDS: predniSONE 10 MG TAB PO SCH (21:02)
--- NOTE | 2019-01-20 21:53 | P.CONS ---
History of Present Illness - Reason for Consult Consult date: 01/20/19 Right leg cellulitis and antibiotic recommendation Requesting physician: Chester Noriega - Chief Complaint Right foot pain and swelling 4 days - History of Present Illness Patient is a 73 year old male with past medical history significant for pancreatic cancer for the patient did have surgery done at [facility] however the people procedure could not be completed because of tumor invading the vasculature, patient also have a history of gout but did not have any currently taking long time, the patient started noticing having pain and swelling right foot medial border at the base of his big toe that started on Wednesday about 4 days before he presented to the hospital the patient describes the pain to be dull aching to sharp almost 7-8 out of 10 on the next few days the patient also having pain in the left medial foot at the base of the big toe with some swelling and redness spreading on the dorsum of right foot that concern the patient and he presented to the ER patient denies high-grade fever rigors and chills and he was afebrile on presentation to the hospital patient did have right lower extremity Doppler was suspicious for DVT below the popliteal vein he did have elevated to 14,000 repeat today is 18,000 patient has been diagnosed with cellulitis and was started on Zosyn x-rays of the foot is some soft tissue swelling infectious disease was consulted for further recommendation regarding antibiotic therapy Review of Systems CONSTITUTIONAL: Positive for weakness. Denies high-grade Fever EYES: No complaint. ENT:No complaint. RESPIRATORY: No complaint. CARDIOVASCULAR: No complaint. GENITOURINARY: No complaint. GASTROINTESTINAL: No complaint. MUSCULOSKELETAL: As per history of present illness INTEGUMENTARY: As per history of present illness. PSYCHOLOGICAL: No complaint. ENDOCRINE: No complaint. NEUROLOGIC: No complaint. Past Medical History Past Medical History: Cancer, Hypertension Additional Past Medical History / Comment(s): pancreatic CA History of Any Multi-Drug Resistant Organisms: None Reported Past Surgical History: Cholecystectomy, Orthopedic Surgery Additional Past Surgical History / Comment(s): B knees, abd sx 12/30 Past Anesthesia/Blood Transfusion Reactions: No Reported Reaction Past Psychological History: No Psychological Hx Reported Smoking Status: Former smoker Past Alcohol Use History: None Reported Past Drug Use History: None Reported - Past Family History Father Additional Family Medical History / Comment(s): Emphysema. Medications and Allergies Home Medications Medication Instructions Recorded Confirmed Type Pantoprazole [Protonix] 40 cap PO DAILY 04/04/18 01/19/19 History Timolol 0.5% Ophth Soln [Timoptic 1 drop BOTH EYES DAILY 04/04/18 01/19/19 History 0.5% Ophth Soln] Atorvastatin [Lipitor] 80 mg PO DAILY #30 tab 09/10/18 01/19/19 Rx Clopidogrel [Plavix] 75 mg PO DAILY #30 tab 09/10/18 01/19/19 Rx amLODIPine BESYLATE [Norvasc] 10 mg PO DAILY #30 tablet 09/10/18 01/19/19 Rx Aspirin 81 mg PO DAILY 01/19/19 01/19/19 History Enoxaparin [Lovenox] 40 mg SQ DAILY 01/19/19 01/19/19 History Metoprolol Succinate [Toprol Xl] 100 mg PO DAILY 01/19/19 01/19/19 History Losartan Potassium [Cozaar] 100 mg PO DAILY 01/20/19 01/20/19 History Allergies Allergy/AdvReac Type Severity Reaction Status Date / Time glipizide Allergy Rash/Hives Verified 01/19/19 08:23 Physical Exam Vitals: Vital Signs Temp Pulse Pulse Resp BP BP Pulse Ox 01/20/19 08:00 99 F 110 H 18 171/77 92 L 01/20/19 04:00 98.4 F 102 H 15 152/72 94 L 01/20/19 00:00 104 H 19 01/19/19 20:00 98.7 F 86 17 174/81 96 01/19/19 16:21 98.2 F 98 19 150/90 94 L 01/19/19 16:04 98 20 162/74 95 Intake and Output 01/19/19 01/20/19 01/20/19 22:59 06:59 14:59 Intake Total 489.763 520 347.409 Output Total 310 875 250 Balance 179.763 -355 97.409 Intake: IV 20 20 Invasive Line 1 20 20 Intake, IV Titration 109.763 500 107.409 Amount 0.9% NaCl with KCl 20 Meq 400 /l 1,000 ml @ 50 mls/hr IV .Q20H [facility] Rx#: [id number] Heparin Sod,Pork in 0.45% 109.763 0 107.409 NaCl 25,000 unit In 0.45 % NaCl 1 250ml.bag @ 18 UNITS/KG/HR 15.105 mls/hr IV .[id number] [facility] Rx#: [id number] Piperacillin-Tazobactam 3 100 .375 gm In Sodium Chloride 0.9% 100 ml @ 200 mls/hr IVPB ONCE [facility] Rx#:[id number] Oral 360 240 Output: Urine 310 875 250 Other: Voiding Method Urinal Urinal # Voids 1 1 1 Weight 82.5 kg GENERAL DESCRIPTION: Elderly male lying in bed, no distress. No tachypnea or accessory muscle of respiration use. HEENT: Shows Pallor , no scleral icterus. Oral mucous membrane is dry. No pharyngeal erythema or thrush NECK: Trachea central, no thyromegaly. LUNGS: Unlabored breathing. Clear to auscultation anteriorly. No wheeze or crackle. HEART: S1, S2, regular rate and rhythm. No loud murmur ABDOMEN: Soft, no tenderness , guarding or rigidity, no organomegaly EXTREMITIES: Bilateral foot medial borders at the base of the big toes did have diffuse swelling redness and tenderness with some redness on the dorsum of his right foot no open wound or any drainage. SKIN: No rash, no masses palpable. NEUROLOGICAL: The patient is awake, alert, oriented x3, mood and affect normal. Results CBC & Chem 7: 01/20/19 07:34 01/20/19 17:20 Labs: Abnormal Lab Results - Last 24 Hours (Table) 01/19/19 01/20/19 01/20/19 Range/Units 21:35 07:34 07:34 WBC 18.0 H (3.8-10.6) k/uL RBC 3.28 L (4.30-5.90) m/uL Hgb 9.7 L (13.0-17.5) gm/dL Hct 30.8 L (39.0-53.0) % RDW 15.6 H (11.5-15.5) % Neutrophils # 13.4 H (1.3-7.7) k/uL Lymphocytes # 0.9 L (1.0-4.8) k/uL Monocytes # 1.5 H (0-1.0) k/uL Eosinophils # 1.8 H (0-0.7) k/uL APTT 104.1 H* (22.0-30.0) sec Potassium 3.3 L (3.5-5.1) mmol/L Creatinine 1.30 H (0.66-1.25) mg/dL Glucose 140 H (74-99) mg/dL Magnesium 1.0 L (1.6-2.3) mg/dL 01/20/19 Range/Units 07:34 WBC (3.8-10.6) k/uL RBC (4.30-5.90) m/uL Hgb (13.0-17.5) gm/dL Hct (39.0-53.0) % RDW (11.5-15.5) % Neutrophils # (1.3-7.7) k/uL Lymphocytes # (1.0-4.8) k/uL Monocytes # (0-1.0) k/uL Eosinophils # (0-0.7) k/uL APTT 60.7 H (22.0-30.0) sec Potassium (3.5-5.1) mmol/L Creatinine (0.66-1.25) mg/dL Glucose (74-99) mg/dL Magnesium (1.6-2.3) mg/dL Microbiology - Last 24 Hours (Table) 01/19/19 08:55 Blood Culture - Preliminary Blood No Growth after 24 hours Assessment and Plan Assessment: 1-patient presented to hospital with pain to bilateral foot at the base of his big toe which are swollen and tender to touch in this patient who did have history of cardio arthritis likely representing an acute cortical arthritis the patient however did have some erythema on the dorsal aspect of the right foot and underlying component of cellulitis secondary to gram-positive skin camilo not entirely excluded clinically doubt gram-negative or MRSA infection 2-right lower extremity DVT (1) Cellulitis of right foot Current Visit: Yes Status: Acute Code(s): L03.115 - CELLULITIS OF RIGHT LOWER LIMB SNOMED Code(s): 653711078 (2) Gouty arthritis of both great toes Current Visit: Yes Status: Acute Code(s): M10.9 - GOUT, UNSPECIFIED SNOMED Code(s): 39989154755863446 Plan: 1- discontinue the Zosyn 2-start the patient on cefazolin 2 g every 8 hours to cover for cellulitis 3-colchicine 0.6 mg twice a day for underlying gouty arthritis We will follow-up on clinical condition and cultures to further adjust medication if needed Thank you for this consultation will follow this patient along with you Time with Patient: Greater than 30
--- NOTE | 2019-01-21 00:45 | P.CONS ---
History of Present Illness - Reason for Consult Consult date: 01/20/19 Right lower extremity DVT, right foot gout, pancreatic cancer - History of Present Illness The patient is a 73-year-old white female, followed by Dr. Nolasco in the outpatient setting . He was initially found to have a solid mass in the neck of pancreas as part of evaluation for pancreatitis in August 2017 at [facility], attempted EUS FNA were negative. CT abdomen 10/12/17 revealed 2.2 x 2.5cm mass at pancreatic neck, he then went to [facility] for further work up. He had EUS on 02/09/18 with FNA which revealed suspicious cells for adenocarcinoma. 02/10/18, PET MR and CT at [place] revealed suspicious uptake in the mass associated with involvement of the common hepatic artery and gastroduodenal artery, no evidence of metastatic disease, CT chest revealed non specific 3 mm nodule. 02/11/18 had staging laparoscopy with peritoneal washing and biopsy of left diaphragm-all results were negative! He was evaluated by Dr. Curt Figueroa at [place] who felt pt had at least locally advanced pancreatic cancer, neoadjuvant FOL FIRINOX was recommended and started 03/15/18. Treatment follow up imaging at [facility] on 05/03/18 revealed improvement in disease, PET revealed no metabolic activities in the tumor! Dr. Figueroa recommended 4 additional cycles. Pt resumed modified FOLFIRINOX on 05/25/18. He went back to [facility] on 08/16/18 for treatment follow up PET scan which was stable, it was recommended to continue with 2 more cycles which he subsequently completed, in late 10/01. The patient then had concurrent chemoradiation, completing that in mid 11/29. He then went back to [facility] and had attempted surgery on 01/06/19. Unfortunately the tumor was not found to be resectable, due to vascular involvement. The patient also developed some intraoperative bleeding and required a total of 4 units of blood. The patient was discharged home on Lovenox, at a prophylactic dose of 40 mg subcu daily. His daughter had called the office yesterday, stating the patient had developed painful foot swelling, starting on 01/15/19, and becoming progressively worse. This seemed to be centered around the right first toe joint and the dorsum of the right foot. He was asked to go into the emergency room, and had a Doppler done which revealed a nonocclusive thrombus in the right popliteal vein. The patient was thus admitted and started on IV heparin. Hemoglobin on admission was in the 9-10 days and has remained stable. He has had no clinical evidence of bleeding since his surgery. The patient has a known history of gout but states that he has not had a flare for a long time. Review of Systems Constitutional: Reports fatigue, Reports poor appetite, Reports weight loss Eyes: denies blurred vision, denies pain Ears: deny: decreased hearing, ear discharge, earache, tinnitus Cardiovascular: Reports decreased exercise tolerance Respiratory: Denies cough Gastrointestinal: Reports bloating, Reports diarrhea Genitourinary: Reports as per HPI Musculoskeletal: Reports hot joints Musculoskeletal: right: foot pain Integumentary: Reports color changes (Redness of skin of right foot) Neurological: Reports weakness Psychiatric: Denies anxiety, Denies depression Endocrine: Denies fatigue, Denies weight change Hematologic/Lymphatic: Reports as per HPI Past Medical History Past Medical History: Cancer, Hypertension Additional Past Medical History / Comment(s): pancreatic CA History of Any Multi-Drug Resistant Organisms: None Reported Past Surgical History: Cholecystectomy, Orthopedic Surgery Additional Past Surgical History / Comment(s): B knees, abd sx 12/30 Past Anesthesia/Blood Transfusion Reactions: No Reported Reaction Past Psychological History: No Psychological Hx Reported Smoking Status: Former smoker Past Alcohol Use History: None Reported Past Drug Use History: None Reported - Past Family History Father Additional Family Medical History / Comment(s): Emphysema. Medications and Allergies Home Medications Medication Instructions Recorded Confirmed Type Pantoprazole [Protonix] 40 cap PO DAILY 04/04/18 01/19/19 History Timolol 0.5% Ophth Soln [Timoptic 1 drop BOTH EYES DAILY 04/04/18 01/19/19 History 0.5% Ophth Soln] Atorvastatin [Lipitor] 80 mg PO DAILY #30 tab 09/10/18 01/19/19 Rx Clopidogrel [Plavix] 75 mg PO DAILY #30 tab 09/10/18 01/19/19 Rx amLODIPine BESYLATE [Norvasc] 10 mg PO DAILY #30 tablet 09/10/18 01/19/19 Rx Aspirin 81 mg PO DAILY 01/19/19 01/19/19 History Enoxaparin [Lovenox] 40 mg SQ DAILY 01/19/19 01/19/19 History Metoprolol Succinate [Toprol Xl] 100 mg PO DAILY 01/19/19 01/19/19 History Losartan Potassium [Cozaar] 100 mg PO DAILY 01/20/19 01/20/19 History Allergies Allergy/AdvReac Type Severity Reaction Status Date / Time glipizide Allergy Rash/Hives Verified 01/19/19 08:23 Physical Exam Vitals: Vital Signs Temp Pulse Resp BP Pulse Ox 01/20/19 12:00 97 18 145/73 94 L 01/20/19 08:00 99 F 110 H 18 171/77 92 L 01/20/19 04:00 98.4 F 102 H 15 152/72 94 L 01/20/19 00:00 104 H 19 01/19/19 20:00 98.7 F 86 17 174/81 96 Intake and Output 01/20/19 01/20/19 01/20/19 06:59 14:59 22:59 Intake Total 520 347.409 Output Total 875 250 Balance -355 97.409 Intake: IV 20 Invasive Line 1 20 Intake, IV Titration 500 107.409 Amount 0.9% NaCl with KCl 20 Meq 400 /l 1,000 ml @ 50 mls/hr IV .Q20H [facility] Rx#: [id number] Heparin Sod,Pork in 0.45% 0 107.409 NaCl 25,000 unit In 0.45 % NaCl 1 250ml.bag @ 18 UNITS/KG/HR 15.105 mls/hr IV .[id number] [facility] Rx#: [id number] Piperacillin-Tazobactam 3 100 .375 gm In Sodium Chloride 0.9% 100 ml @ 200 mls/hr IVPB ONCE [facility] Rx#:[id number] Oral 240 Output: Urine 875 250 Other: Voiding Method Urinal # Voids 1 1 1 Weight 82.5 kg - Constitutional General appearance: no acute distress - EENT Eyes: EOMI, PERRLA ENT: hearing grossly normal, normal oropharynx - Neck Neck: no lymphadenopathy - Respiratory Respiratory: bilateral: CTA - Cardiovascular Rhythm: regular Heart sounds: normal: S1, S2 - Gastrointestinal Midline incision with everardo in situ. CDI General gastrointestinal: distended, normal bowel sounds - Integumentary Integumentary: calor (Right first MTP joint, and/or some of right foot) - Neurologic Neurologic: CNII-XII intact - Musculoskeletal Active swelling of first MTP, and areas of dorsum of right foot, very suggestive of acute gout Musculoskeletal: strength equal bilaterally - Psychiatric Psychiatric: A&O x's 3, appropriate affect Results CBC & Chem 7: 01/20/19 07:34 01/20/19 17:20 Labs: Abnormal Lab Results - Last 24 Hours (Table) 01/19/19 01/20/19 01/20/19 Range/Units 21:35 07:34 07:34 WBC 18.0 H (3.8-10.6) k/uL RBC 3.28 L (4.30-5.90) m/uL Hgb 9.7 L (13.0-17.5) gm/dL Hct 30.8 L (39.0-53.0) % RDW 15.6 H (11.5-15.5) % Neutrophils # 13.4 H (1.3-7.7) k/uL Lymphocytes # 0.9 L (1.0-4.8) k/uL Monocytes # 1.5 H (0-1.0) k/uL Eosinophils # 1.8 H (0-0.7) k/uL APTT 104.1 H* (22.0-30.0) sec Potassium 3.3 L (3.5-5.1) mmol/L Creatinine 1.30 H (0.66-1.25) mg/dL Glucose 140 H (74-99) mg/dL Magnesium 1.0 L (1.6-2.3) mg/dL 01/20/19 Range/Units 07:34 WBC (3.8-10.6) k/uL RBC (4.30-5.90) m/uL Hgb (13.0-17.5) gm/dL Hct (39.0-53.0) % RDW (11.5-15.5) % Neutrophils # (1.3-7.7) k/uL Lymphocytes # (1.0-4.8) k/uL Monocytes # (0-1.0) k/uL Eosinophils # (0-0.7) k/uL APTT 60.7 H (22.0-30.0) sec Potassium (3.5-5.1) mmol/L Creatinine (0.66-1.25) mg/dL Glucose (74-99) mg/dL Magnesium (1.6-2.3) mg/dL Microbiology - Last 24 Hours (Table) 01/19/19 08:55 Blood Culture - Preliminary Blood No Growth after 24 hours Comments: foot xray report reviewed Chest x-ray: report reviewed Venous US: report reviewed Assessment and Plan (1) Deep vein thrombosis of lower extremity Narrative/Plan: The pt has multiple risk factors for VTE, including recent surgery, malignancy, and acute inflammation from his gout, leading to his popliteal DVT despite prophylactic Lovenox. The DVT is an incidental finding, as his symptoms are due to his gout flare - Pt is currently on IV heparin. He can be switched to oral, and discharged whenver Ok with IM. If covered, one of the DOAC's would be appropriate for him. - He has had no evidence of bleeding since his surgery, with overall stable Hgb - Check CTA to r/o PE for baseline Current Visit: Yes Status: Acute Code(s): I82.409 - ACUTE EMBOLISM AND THOMBOS UNSP DEEP VN UNSP LOWER EXTREMITY SNOMED Code(s): 762636766 (2) Gouty arthritis of both great toes Narrative/Plan: This is the reason for his presenting symptoms, with the DVT being an incidental finding. Defer to IM for continued management. Current Visit: Yes Status: Acute Code(s): M10.9 - GOUT, UNSPECIFIED SNOMED Code(s): 27471906548835230 (3) Pancreatic cancer Narrative/Plan: This was unfortunately not resectable despite aggressive neoadjuvant therapy. F/U in about 3-[address] Nolasco to assess for disease status and resumption of systemic therapy Current Visit: Yes Status: Acute Priority: High Code(s): C25.9 - MALIGNANT NEOPLASM OF PANCREAS, UNSPECIFIED SNOMED Code(s): 123509133
[2019-01-21] MEDS: HYDROmorphone 1 MG/ML 1 ML SYRINGE IVP PRN (03:23)
[2019-01-21] MEDS: HEPARIN SOD,PORK IN 0.45% NACL 25,000 UNIT in 0.45% NACL 1 250ML.BAG IV SCH (05:30)
[2019-01-21 06:14] LABS: Basophils % (A) 0 %; Eosinophils % (A) 0 %; HCT 29.6 % (39.0-53.0); HGB 9.2 gm/dL (13.0-17.5); Hypochromasia Moderate; Lymphocytes # (A) 0.5 k/uL (1.0-4.8); Lymphocytes % (A) 3 %; MCH 29.1 pg (25.0-35.0); MCHC 30.9 g/dL (31.0-37.0); MCV 94.1 fL (80.0-100.0); Mean Platelet Volume 7.6; Monocytes # (A) 0.8 k/uL (0-1.0); Monocytes % (A) 5 %; Neutrophils # (A) 15.3 k/uL (1.3-7.7); Neutrophils % (A) 91 %; Platelet Count 275 k/uL (150-450); RBC 3.15 m/uL (4.30-5.90); RDW 15.3 % (11.5-15.5); WBC 16.8 k/uL (3.8-10.6)
[2019-01-21] MEDS: PANTOPRAZOLE 40 MG TABLET PO SCH (06:27)
[2019-01-21 06:45] LABS: Calcium 9.3 mg/dL (8.4-10.2); Magnesium 1.6 mg/dL (1.6-2.3); Potassium 4.4 mmol/L (3.5-5.1)
[2019-01-21] MEDS: COLCHICINE 0.6 MG EACH PO SCH ×2 (08:41→20:59)
[2019-01-21] MEDS: ATORVASTATIN 80 MG TAB PO SCH (08:42)
[2019-01-21] MEDS: LOSARTAN 50 MG TAB PO SCH (08:42)
[2019-01-21] MEDS: ASPIRIN 81 MG PO SCH (08:42)
[2019-01-21] MEDS: predniSONE 10 MG TAB PO SCH ×2 (08:42→20:55)
[2019-01-21] MEDS: METOPROLOL SUCCINATE (ER) 100 MG TAB.ER.24H PO SCH (08:42)
[2019-01-21] MEDS: TIMOLOL 0.5% OPHTH DROPS 5 ML BTL BOTH EYES SCH (08:42)
[2019-01-21] MEDS: amLODIPine 10 MG TAB PO SCH (08:42)
[2019-01-21] MEDS: CLOPIDOGREL 75 MG TAB PO SCH (08:42)
[2019-01-21] MEDS: 0.9% NACL WITH KCL 20 MEQ/L 1,000 ML IV SCH (08:43)
[2019-01-21] MEDS ORDERED: NON-FORMULARY DRUG (Losartan Potassium [Cozaar] 100 MG) PO SCH (09:00)
[2019-01-21] MEDS: ceFAZolin IN SWFI 2 GM/20 ML SYRINGE IVP SCH ×2 (13:08→17:27)
[2019-01-21] MEDS ORDERED: KETOROLAC 30 MG/ML 1 ML VIAL IVP STA (13:21)
--- NOTE | 2019-01-21 13:49 | P.PN ---
Subjective This very pleasant 73-year-old gentleman comes in with above-mentioned complaints. Patient apparently has a history of primary cancer and he was at [facility] where he was supposed to get Whipple's procedure. He said that the procedure was not able to be completed as the tumor was invading the vasculature. They sutured him back up and he got 4 units of blood as he lost a lot of blood. 2 days ago the patient noticed that he's having pain in his right leg mostly in the dorsum of the foot. It was not improving. He comes to the ER for further evaluation and management. Patient otherwise does not complain of any chest pain or racing heart, no cough no shortness of breath, he does not complain of any abdominal pain, he does not complain of any diarrhea constipation, no nausea and vomiting, no tingling numbness on his extremities, no itch or rash On 01/20/2019 Patient still complaining of pain in his right leg especially on the dorsum of the foot. He says Dilaudid not relieving the pain No chest pain or racing heart No cough no shortness of breath No pain in the belly sutures looking dry and healing well On 01/21/2019 Patient's pain in the right leg is much better than yesterday The redness is also improved No chest pain or racing heart No cough no shortness of breath Objective - Vital Signs Vital signs: Vital Signs Temp 98.3 F 01/21/19 08:00 Pulse 81 01/21/19 12:00 Resp 20 01/21/19 12:00 BP 155/81 01/21/19 12:00 Pulse Ox 97 01/21/19 12:00 Intake & Output 01/20/19 01/21/19 01/21/19 18:59 06:59 18:59 Intake Total 1312.409 250 Output Total 1150 405 600 Balance 162.409 -155 -600 Weight 82 kg Intake: IV 75 heparin 75 Intake, IV Titration 757.409 250 Amount 0.9% NaCl with KCl 20 Meq 350 /l 1,000 ml @ 50 mls/hr IV .Q20H [facility] Rx#: [id number] Heparin Sod,Pork in 0.45% 107.409 250 NaCl 25,000 unit In 0.45 % NaCl 1 250ml.bag @ 18 UNITS/KG/HR 15.105 mls/hr IV .[id number] [facility] Rx#: [id number] Magnesium Sulfate-D5w Pmx 200 1 gm In Dextrose/Water 1 100ml.bag @ 100 mls/hr IVPB Q1H [facility] Rx#: [id number] Piperacillin-Tazobactam 3 100 .375 gm In Sodium Chloride 0.9% 100 ml @ 25 mls/hr IVPB Q8HR [facility] Rx# :[id number] Oral 480 Output: Urine 1150 405 600 Other: Voiding Method Urinal # Voids 1 1 1 - Exam On exam, alert and oriented x3. HEENT: Conjunctivae normal. eyes normal. NECK: No JVD. No thyroid enlargement. No LNs CARDIOVASCULAR: S1-S2 positive RESPIRATION: Breath sounds diminished in the bases. No rhonchi or crackles. No bronchial breathing. ABDOMEN: Soft, nontender . No guarding. no masses palpable. No ascites, No hepatosplenomegaly.Bowel sounds heard. The abdominal scar is dry and healing well LEGS: he has erythema and tenderness in the dorsum of the right foot. He also has some tender calluses on the side of the first toe medially and bilaterally NERVOUS SYSTEM: Cranial N 2-12 grossly normal. Moves all 4 limbs. No focal deficits. No sensory deficit. No signs of cerebellar dysfucntion. Skin: no ulcer no rash - Labs CBC & Chem 7: 01/21/19 05:38 01/21/19 05:38 Labs: Abnormal Lab Results - Last 24 Hours (Table) 01/21/19 01/21/19 01/21/19 Range/Units 05:38 05:38 05:38 WBC 16.8 H (3.8-10.6) k/uL RBC 3.15 L (4.30-5.90) m/uL Hgb 9.2 L (13.0-17.5) gm/dL Hct 29.6 L (39.0-53.0) % MCHC 30.9 L (31.0-37.0) g/dL Neutrophils # 15.3 H (1.3-7.7) k/uL Lymphocytes # 0.5 L (1.0-4.8) k/uL APTT 56.7 H (22.0-30.0) sec Sodium 136 L (137-145) mmol/L Glucose 180 H (74-99) mg/dL Microbiology - Last 24 Hours (Table) 01/19/19 08:55 Blood Culture - Preliminary Blood No Growth after 48 hours Assessment and Plan Assessment: - Cellulitis in the right lower extremity - Leukocytosis - DVT and right lower extremity - History of primary cancer - History of hypertension - Pseudogout Plan - Appreciated ICU recommendations. Continue antibiotics - Appreciated hemoglobin accommodations. manager background to figure out the co-pay for oral anticoagulants - We will get a CT of the chest as per hematology recommendations - Continue colchicine. Steroids added yesterday - Continue rest of the home medications - Kidney functions improving Time with Patient: Less than 30
--- NOTE | 2019-01-21 16:02 | CT ---
EXAMINATION TYPE: CT angio chest DATE OF EXAM: 01/21/2019 COMPARISON: 09/06/2018 HISTORY: 73-year-old male with pain, Rule out PE. TECHNIQUE: Contiguous axial scanning of the chest performed with IV Contrast, patient injected with 7 0ml mL of Isovue 370. Coronal/sagittal MIP reconstructions performed. CT DLP: 371 mGycm Automated exposure control for dose reduction was used. FINDINGS: Right anterior chest wall injection port with catheter tip not seen entering the thorax. Heart normal size without pericardial effusion. No reflux of contrast into the hepatic veins. Minimal coronary vascular calcifications are noted. Aneurysm ascending aorta 4.0 cm. Conventional arterial vessel branching anatomy. Large caliber to the main right and left pulmonary arteries are 3.1 and 2.6 cm, respectively, suggest ing underlying pulmonary arterial hypertension. No evidence for pulmonary embolus. No thoracic lymphadenopathy. Some mild strandy scarring in the lower lungs and minimal bibasilar bronchiectasis. No consolidation or pleural effusion. Small 3 mm right midlung pulmonary nodule along the minor fissure is unchanged from 2018 suggesting a benign etiology. Tiny hiatal hernia. There is reticulations of the subcutaneous fat in the upper abdomen which requires further clinical c orrelation. There is also dilatation of the main pancreatic duct. Bones: Degenerative disc disease throughout the thoracic spine. IMPRESSION: 1. FINDINGS SUGGEST UNDERLYING PULMONARY HYPERTENSION. NO EVIDENCE FOR PULMONARY EMBOLUS. 2. RIGHT ANTERIOR CHEST WALL INJECTION PORT. THE CATHETER TIP IS NOT SEEN ENTERING THE THORAX. CORREL ATE TO POSITIONING. 3. 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 4. RETICULATIONS THROUGHOUT THE SUBCUTANEOUS FAT OF THE VISUALIZED UPPER ABDOMEN. DILATATION OF THE M AIN PANCREATIC DUCT. CORRELATE TO ANY KNOWN UNDERLYING ETIOLOGY SUCH AN INFLAMMATORY OR NEOPLAS TIC PROCESS.
[2019-01-21] MEDS: INSULIN ASPART (NovoLOG) 100 UNIT/ML VIAL SQ SCH ×2 (17:27→20:55)
[2019-01-21 17:35] LABS: Glucose,Whole Blood 224 mg/dL (75-99)
[2019-01-21 20:14] LABS: Glucose,Whole Blood 194 mg/dL (75-99)
[2019-01-21] MEDS: APIXABAN 5 MG TAB PO SCH (20:55)
[2019-01-21] MEDS ORDERED: COLCHICINE 0.6 MG EACH PO ONE (21:00)
--- NOTE | 2019-01-21 21:16 | PN ---
PROGRESS NOTE DATE OF SERVICE: 01/21/2019. REASON FOR FOLLOWUP: Right foot cellulitis. INTERVAL HISTORY: The patient is currently afebrile. Pain into the bilateral foot area has decreased. Redness of the right foot has decreased as well. Denies having any chest pain or shortness of breath. No cough. No abdominal pain. No diarrhea. PHYSICAL EXAMINATION: Blood pressure 159/76 with a pulse of 89, temperature 98.3. He is 97% on room air. General description is an elderly male lying in bed in no distress. Respiratory system: Unlabored breathing. Clear to auscultation anteriorly. Heart S1, S2. Regular rate and rhythm. Abdomen soft, no tenderness. Bilateral feet redness at the base of the big toe has decreased. The dryness on the dorsum of the right foot decreased as well. LABS: Hemoglobin 9.1, white count 15.2, BUN of 16, creatinine 1.23. DIAGNOSTIC IMPRESSION AND PLAN: 1. Patient with bilateral feet pain at the base of the metatarsals, more likely secondary to acute gouty arthritis for which patient responded to colchicine. 2. The patient with possible right foot cellulitis currently covered with Cefazolin to continue with the plan to finish therapy with oral Keflex. Continue supportive care. MMODL / IJN: [id number] /
[2019-01-22] MEDS: ceFAZolin IN SWFI 2 GM/20 ML SYRINGE IVP SCH ×2 (01:02→08:52)
[2019-01-22 06:21] LABS: Basophils % (A) 0 %; Eosinophils % (A) 0 %; HCT 27.1 % (39.0-53.0); HGB 8.5 gm/dL (13.0-17.5); Hypochromasia Moderate; Lymphocytes # (A) 0.5 k/uL (1.0-4.8); Lymphocytes % (A) 3 %; MCH 29.7 pg (25.0-35.0); MCHC 31.5 g/dL (31.0-37.0); MCV 94.1 fL (80.0-100.0); Monocytes # (A) 0.7 k/uL (0-1.0); Monocytes % (A) 4 %; Neutrophils # (A) 16.4 k/uL (1.3-7.7); Neutrophils % (A) 93 %; Platelet Count 309 k/uL (150-450); RBC 2.88 m/uL (4.30-5.90); RDW 15.3 % (11.5-15.5); WBC 17.7 k/uL (3.8-10.6)
[2019-01-22 06:29] LABS: Glucose,Whole Blood 185 mg/dL (75-99)
[2019-01-22 06:30] LABS: Calcium 9.1 mg/dL (8.4-10.2); Potassium 4.1 mmol/L (3.5-5.1)
[2019-01-22] MEDS: INSULIN ASPART (NovoLOG) 100 UNIT/ML VIAL SQ SCH ×2 (06:40→12:34)
[2019-01-22] MEDS: PANTOPRAZOLE 40 MG TABLET PO SCH (06:40)
[2019-01-22] MEDS: 0.9% NACL WITH KCL 20 MEQ/L 1,000 ML IV SCH (07:37)
[2019-01-22] MEDS: COLCHICINE 0.6 MG EACH PO SCH (08:51)
[2019-01-22] MEDS: TIMOLOL 0.5% OPHTH DROPS 5 ML BTL BOTH EYES SCH (08:51)
[2019-01-22] MEDS: ASPIRIN 81 MG PO SCH (08:51)
[2019-01-22] MEDS: CLOPIDOGREL 75 MG TAB PO SCH (08:51)
[2019-01-22] MEDS: amLODIPine 10 MG TAB PO SCH (08:51)
[2019-01-22] MEDS: ATORVASTATIN 80 MG TAB PO SCH (08:51)
[2019-01-22] MEDS: METOPROLOL SUCCINATE (ER) 100 MG TAB.ER.24H PO SCH (08:51)
[2019-01-22] MEDS: predniSONE 10 MG TAB PO SCH (08:52)
[2019-01-22] MEDS: APIXABAN 5 MG TAB PO SCH (08:52)
[2019-01-22] MEDS: LOSARTAN 50 MG TAB PO SCH (08:52)
[2019-01-22 10:04] VITALS: RESP 20; TEMP 97.3
[2019-01-22 12:13] LABS: Glucose,Whole Blood 187 mg/dL (75-99)
--- NOTE | 2019-01-22 12:25 | P.DS ---
Providers Date of admission: 01/19/19 14:59 Expected date of discharge: 01/22/19 Attending physician: Chester Noriega MD Consults: 01/19/19 15:02 Consult Physician Routine Consulting Provider: Vernell Nolasco Consult Reason/Comments: Pancreatic cancer, DVT Do you want consulting provider notified?: Yes 01/20/19 11:29 Consult Physician Urgent Consulting Provider: Myranda Livingston Consult Reason/Comments: cellulitis, leucocytosis Do you want consulting provider notified?: Yes Primary care physician: Physician Nonstaff Hospital Course: Discharge diagnosis - Cellulitis in the right lower extremity - Gouty arthritis lower extremity digits - Acute DVT right lower extremity - History of primary cancer - History of hypertension Hospital course This very pleasant 73-year-old gentleman comes in with above-mentioned complaints. Patient apparently has a history of primary cancer and he was at [facility] where he was supposed to get Whipple's procedure. He said that the procedure was not able to be completed as the tumor was invading the vasculature. They sutured him back up and he got 4 units of blood as he lost a lot of blood. 2 days ago the patient noticed that he's having pain in his right leg mostly in the dorsum of the foot. It was not improving. He comes to the ER for further evaluation and management. Patient otherwise does not complain of any chest pain or racing heart, no cough no shortness of breath, he does not complain of any abdominal pain, he does not complain of any diarrhea constipation, no nausea and vomiting, no tingling numbness on his extremities, no itch or rash. Patient was seen by Dr. Brown who recommended that he should be on oral anti- CUAGULATION at discharge. Patient has coverage swelling was so was started on liquids while in the hospital. Patient was been followed up by infectious disease. Antibiotics were modified. On the same time he was started on colchicine and steroids for his gouty arthritis. His lower extremity pain and swelling and erythema started to improve. On 01/22/2019 On exam, alert and oriented x3. HEENT: Conjunctivae normal. eyes normal. NECK: No JVD. No thyroid enlargement. No LNs CARDIOVASCULAR: S1-S2 positive RESPIRATION: Breath sounds diminished in the bases. No rhonchi or crackles. No bronchial breathing. ABDOMEN: Soft, nontender . No guarding. no masses palpable. No ascites, No hepatosplenomegaly.Bowel sounds heard. LEGS: She has erythema and tenderness in the dorsum of the right foot which has significantly improved. He also has some tender calluses on the site of the first toe NERVOUS SYSTEM: Cranial N 2-12 grossly normal. Moves all 4 limbs. No focal deficits. No sensory deficit. No signs of cerebellar dysfucntion. Skin: no ulcer no rash Patient will possibly discharge when cleared by infectious disease after getting antibiotic recommendations regarding the type, dose and duration Patient will be on a ELIQUIS Patient is to follow with the primary care doctor and with the enamel cracker oncologist after discharge within a week Patient Condition at Discharge: Fair Plan - Discharge Summary Discharge Rx Participant: Yes New Discharge Prescriptions: No Action Timolol 0.5% Ophth Soln [Timoptic 0.5% Ophth Soln] 1 drop BOTH EYES DAILY Pantoprazole [Protonix] 40 cap PO DAILY amLODIPine BESYLATE [Norvasc] 10 mg PO DAILY #30 tablet Clopidogrel [Plavix] 75 mg PO DAILY #30 tab Atorvastatin [Lipitor] 80 mg PO DAILY #30 tab Enoxaparin [Lovenox] 40 mg SQ DAILY Metoprolol Succinate [Toprol Xl] 100 mg PO DAILY Aspirin 81 mg PO DAILY Losartan Potassium [Cozaar] 100 mg PO DAILY Discharge Medication List Pantoprazole [Protonix] 40 cap PO DAILY 04/04/18 [History] Timolol 0.5% Ophth Soln [Timoptic 0.5% Ophth Soln] 1 drop BOTH EYES DAILY 04/04/18 [History] Atorvastatin [Lipitor] 80 mg PO DAILY #30 tab 09/10/18 [Rx] Clopidogrel [Plavix] 75 mg PO DAILY #30 tab 09/10/18 [Rx] amLODIPine BESYLATE [Norvasc] 10 mg PO DAILY #30 tablet 09/10/18 [Rx] Aspirin 81 mg PO DAILY 01/19/19 [History] Enoxaparin [Lovenox] 40 mg SQ DAILY 01/19/19 [History] Metoprolol Succinate [Toprol Xl] 100 mg PO DAILY 01/19/19 [History] Losartan Potassium [Cozaar] 100 mg PO DAILY 01/20/19 [History] Follow up Appointment(s)/Referral(s): Nonstaff,Physician [Primary Care Provider] - 1-2 days
[2019-01-22 12:59] VITALS: BP 162/68; PULSE 72
--- NOTE | 2019-01-22 14:06 | PN ---
PROGRESS NOTE DATE OF SERVICE: 01/22/2019. REASON FOR FOLLOWUP: Right foot cellulitis. INTERVAL HISTORY: The patient is currently afebrile. Patient is breathing comfortably. Denies any chest pain or cough. No abdominal pain. Pain to the right foot is currently controlled and improved and redness is decreased. PHYSICAL EXAMINATION: Blood pressure is 152/68 with pulse 72, temperature 97.3. He is 96% on room air. General description is an elderly male up in the room in no distress. Respiratory system: Unlabored breathing. Clear to auscultation anteriorly. Heart S1, S2. Regular rate and rhythm. Abdomen soft, no tenderness. Right foot with minimal redness. The bilateral foot medial border at the also swelling has decreased. Currently with no tenderness. LABS: Hemoglobin is 8.5, white count 17.7, BUN of 20, creatinine 1.84. DIAGNOSTIC IMPRESSION AND PLAN: 1. Patient with bilateral big tie swelling and redness more likely secondary to acute gouty arthritis with possible component of right foot cellulitis. The patient is currently responding to Cefazolin that will be transitioned to oral Keflex 500 mg t.i.d. for about a week. Script was sent to pharmacy. 2. Elevated white count more likely steroid effect. The patient now showing evidence of worsening of his clinical condition. We will monitor closely. Thank you. MARIA ANTONIA / COLIN: [id number] /
[2019-01-27] MEDS ORDERED: APIXABAN 5 MG TAB PO SCH (21:00)
== END 2019-01-22 15:34 | disposition home or self-care (01) | DRG 300 ==
LOC: EC 08:01 → 3SCARD 14:59
PROVIDERS: ADMIT Internal Medicine; ATTEND Internal Medicine
DX: I82.431 Acute embolism and thrombosis of right popliteal vein (principal); L03.115 Cellulitis of right lower limb; C25.7 Malignant neoplasm of other parts of pancreas; E83.42 Hypomagnesemia; E87.6 Hypokalemia; I10 Essential (primary) hypertension; L84 Corns and callosities; M10.9 Gout, unspecified; M11.2 Other chondrocalcinosis; Z79.02 Long term (current) use of antithrombotics/antiplatelets; Z79.82 Long term (current) use of aspirin; Z79.899 Other long term (current) drug therapy; Z82.5 Family history of asthma and other chronic lower respiratory diseases; Z87.891 Personal history of nicotine dependence; Z88.8 Allergy status to other drugs, medicaments and biological substances
CPT/HCPCS: 36415; 71046; 71275; 80048; 80053; 81003; 82550; 82553; 83605; 83735; 84132; 84550; 85025; 85610; 85730; 87040; 93970; 96365; 96367; 96375; 96376; 99285

== ENCOUNTER → 2019-01-31 | Outpatient (CLI) | payer MEDICARE ==
[2019-01-31 12:53] LABS: Anisocytosis Slight; HGB 9.5 gm/dL (13.0-17.5); Hypochromasia Moderate; MCH 28.4 pg (25.0-35.0); MCHC 30.8 g/dL (31.0-37.0); MCV 92.3 fL (80.0-100.0); Mean Platelet Volume 7.9; Platelet Count 283 k/uL (150-450); RBC 3.36 m/uL (4.30-5.90); WBC 10.6 k/uL (3.8-10.6)
[2019-01-31 21:11] LABS: Calcium 8.5 mg/dL (8.7-10.3); Magnesium 1.2 mg/dL (1.5-2.4); Potassium 3.2 mmol/L (3.5-5.5)
[2019-01-31 23:20] LABS: Hemoglobin A1C 6.8 % (4.0-6.0)
== END | disposition home or self-care (01) ==
LOC: LABWHC1 11:38
PROVIDERS: ATTEND Internal Medicine
DX: E11.65 Type 2 diabetes mellitus with hyperglycemia (principal); E11.22 Type 2 diabetes mellitus with diabetic chronic kidney disease; N18.3 Chronic kidney disease, stage 3 (moderate); D63.1 Anemia in chronic kidney disease
CPT/HCPCS: 36415; 80048; 82043; 82570; 83036; 83735; 85027

== ENCOUNTER → 2019-02-09 | Outpatient (CLI) | payer MEDICARE ==
--- NOTE | 2019-02-09 13:01 | US ---
EXAMINATION TYPE: US venous doppler duplex LE RT DATE OF EXAM: 02/09/2019 12:44 PM COMPARISON: US 01/19/19 CLINICAL HISTORY: I82.4Y1 Acute embolism and thrombosis of. Deep vein thrombosis of lower extremity p er order. Pain right leg x 10 days. Pt on blood thinners. SIDE PERFORMED: Right TECHNIQUE: The lower extremity deep venous system is examined utilizing real time linear array sonog brad with graded compression, doppler sonography and color-flow sonography. VESSELS IMAGED: External Iliac Vein (EIV) Common Femoral Vein Deep Femoral Vein Greater Saphenous Vein * Femoral Vein Popliteal Vein Small Saphenous Vein * Proximal Calf Veins (* superficial vessels) Right Leg: No evidence of DVT in the right lower extremity. *Difficulty compressing the distal porti on of the popliteal vein. This was the area of concern on previous exam 01-19-19. Color flow visualized in this area without visible thrombus. IMPRESSION: 1. Right lower extremity ultrasound negative for deep venous thrombosis. There is limitation especial ly popliteal vein due axis for compressibility
== END | disposition home or self-care (01) ==
LOC: RADUSWWP 12:08
PROVIDERS: ATTEND Internal Medicine
DX: I82.409 Acute embolism and thrombosis of unspecified deep veins of unspecified lower extremity (principal)

== ENCOUNTER → 2019-03-02 | Outpatient (CLI) | payer MEDICARE ==
--- NOTE | 2019-03-02 18:16 | US ---
EXAMINATION TYPE: US venous doppler duplex LE BI DATE OF EXAM: 03/02/2019 5:52 PM COMPARISON: US CLINICAL HISTORY: M79.662 M79.661 Bilateral Lower extremity pain. Pain bilateral legs since January. Pt o n blood thinners. Pancreatic cancer. SIDE PERFORMED: Bilateral TECHNIQUE: The lower extremity deep venous system is examined utilizing real time linear array sonog brad with graded compression, doppler sonography and color-flow sonography. VESSELS IMAGED: External Iliac Vein (EIV) Common Femoral Vein Deep Femoral Vein Greater Saphenous Vein * Femoral Vein Popliteal Vein Small Saphenous Vein * Proximal Calf Veins (* superficial vessels) Right Leg: Negative for DVT Left Leg: Negative for DVT IMPRESSION: No evidence of deep venous thrombosis in both legs.
== END | disposition home or self-care (01) ==
LOC: RADUSMAIN 16:43
PROVIDERS: ATTEND Internal Medicine Hematology & Oncology
DX: M79.662 Pain in left lower leg (principal); M79.661 Pain in right lower leg
CPT/HCPCS: 93970

== ENCOUNTER → 2019-03-03 | Outpatient (CLI) | payer MEDICARE ==
[2019-03-03 11:17] LABS: Anisocytosis Slight; Basophils % (A) 0 %; Eosinophils # (A) 0.8 k/uL (0-0.7); Eosinophils % (A) 8 %; HCT 29.2 % (39.0-53.0); HGB 9.1 gm/dL (13.0-17.5); Hypochromasia Marked; Lymphocytes % (A) 9 %; MCH 28.6 pg (25.0-35.0); MCHC 31.3 g/dL (31.0-37.0); MCV 91.2 fL (80.0-100.0); Mean Platelet Volume 7.5; Monocytes # (A) 0.8 k/uL (0-1.0); Monocytes % (A) 8 %; Neutrophils # (A) 7.7 k/uL (1.3-7.7); Neutrophils % (A) 73 %; Platelet Count 316 k/uL (150-450); WBC 10.6 k/uL (3.8-10.6)
[2019-03-03 11:24] LABS: Appearance,Urine Clear (Clear); Bilirubin,Urine Negative (Negative); Blood,Urine Negative (Negative); Color,Urine Yellow; Glucose,Urine (UA) Negative (Negative); Ketones,Urine Negative (Negative); Leukocyte Esterase,Urine Negative (Negative); Nitrite,Urine Negative (Negative); PH, Urine 5.5 (5.0-8.0); Protein,Urine Negative (Negative); Specific Gravity,Urine 1.012 (1.001-1.035); Urobilinogen,Urine <2.0 mg/dL (<2.0)
[2019-03-03 12:49] LABS: Erythrocyte Sedimentation Rate 93 mm/hr (0-15)
[2019-03-03 17:56] LABS: Iron Saturation 5.59 (15.00-50.00); Rheumatoid Factor 14 IU/mL (0-15); Vitamin D 25 Hydroxy 14.7 ng/mL (30.0-100.0)
[2019-03-03 18:10] LABS: Protein, Total 6.3 g/dL (6.2-8.2)
[2019-03-03 18:42] LABS: African American GFR (CKD) 48.8 (60.0-200.0); Anion Gap 11.1 mmol/L (4.00-12.00); BUN/Creat Ratio 14.38 Ratio (12.00-20.00); Calcium 8.8 mg/dL (8.7-10.3); Carbon Dioxide 24.9 mmol/L (21.6-31.8); Phosphorus 3.5 mg/dL (2.4-5.1); Uric Acid 8.4 mg/dL (3.7-8.7)
[2019-03-03 18:43] LABS: Parathyroid Hormone Intact 124.4 pg/mL (14.0-72.0)
[2019-03-06 13:27] LABS: Albumin 3.28 g/dL (3.80-4.90); Gamma Globulin 0.75 g/dL (0.70-1.50)
== END | disposition home or self-care (01) ==
LOC: LABWHC1 10:49
PROVIDERS: ATTEND Internal Medicine
DX: D64.9 Anemia, unspecified (principal); G64 Other disorders of peripheral nervous system; M10.9 Gout, unspecified; M65.9 Synovitis and tenosynovitis, unspecified; N18.3 Chronic kidney disease, stage 3 (moderate); D63.1 Anemia in chronic kidney disease
CPT/HCPCS: 36415; 80048; 81003; 82306; 82607; 82728; 83540; 83550; 83970; 84100; 84165; 84550; 85025; 85652; 86038; 86334; 86431; 87086

== ENCOUNTER → 2019-03-22 | Outpatient (CLI) | payer MEDICARE ==
--- NOTE | 2019-03-23 07:41 | CT ---
EXAMINATION TYPE: CT ChestAbdPelvis wo con DATE OF EXAM: 03/22/2019 COMPARISON: CTA chest March 23, 2019. Outside CT abdomen and pelvis January 05, 2019 and older CTs. HISTORY: Pancreatic CA CT DLP: 743.6 mGycm. Automated Exposure Control for Dose Reduction was Utilized. TECHNIQUE: CT scan of the thorax, abdomen and pelvis is performed with oral but without IV contrast. IV contrast could not be given due to diminished renal function FINDINGS: LUNGS: Some vague subcentimeter areas of focal groundglass opacity throughout the right upper lobe ar e now present concerning for early alveolar edema and/or infiltrate. Correlate clinically. No suspici ous new greater than 5 mm solid nodules or masses are present. Some respiratory motion artifact at th e bases is noted. No pleural effusion or pneumothorax is seen. MEDIASTINUM: There are no new greater than 1 cm hilar or mediastinal lymph nodes. No cardiomegaly or pericardial effusion is seen. Coronary stent in the LAD is suspected. Main pulmonary artery remai ns dilated at 4.1 cm. 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 OTHER: Stable right internal jugular Mediport catheter is coiled in the internal jugular vein far chan rt of the IVC. Multilevel spurring in thoracic spine is redemonstrated. LIVER/GB: Cholecystectomy clips are redemonstrated. PANCREAS: Persistent ductal dilatation most prominent midbody. Some atrophy at the pancreatic head ag ain seen. Interval improvement in irregular soft tissue or loss of normal fat plane near axial image 66 versus prior study. Loss of fat surrounding SMA on the prior study is improved for reference. Righ t branching vessel from SMA not clearly seen on current study. Perhaps there has been interval surger y? No new suspicious masses evident. SPLEEN: No significant abnormality is seen. ADRENALS: No significant abnormality is seen. KIDNEYS: No renal stones or hydronephrosis. BOWEL: Oral contrast only reaches mid small bowel loops in the lower abdomen. No suspicious small or large bowel dilatation. Distended stomach with air contrast level is present. Some scattered colonic diverticula are seen. No CT evidence for acute diverticulitis. GENITAL ORGANS: Heterogeneous enlarged prostate gland consistent with BPH. Left-sided pelvic phleboli ths.. LYMPH NODES: No greater than 1cm abdominal or pelvic lymph nodes are appreciated. OSSEOUS STRUCTURES: No significant abnormality is seen. OTHER: Small fat containing right inguinal hernia. IMPRESSION: Some improvement in loss of normal fat planes the level of pancreatic head neoplasm sugge sts possible positive treatment response. Correlate clinically. No obvious new mass or adenopathy no gurwinder.
== END | disposition home or self-care (01) ==
LOC: RADPROMAIN 13:41
PROVIDERS: ATTEND Internal Medicine Hematology & Oncology
DX: Z03.89 Encounter for observation for other suspected diseases and conditions ruled out (principal); C25.0 Malignant neoplasm of head of pancreas
CPT/HCPCS: 36415; 71250; 74176; 82565; 84520

== ENCOUNTER → 2019-04-06 | Outpatient (CLI) | payer MEDICARE ==
[2019-04-06 13:31] LABS: Anisocytosis Slight; HCT 26.6 % (39.0-53.0); HGB 8.2 gm/dL (13.0-17.5); Hypochromasia Marked; MCH 27.7 pg (25.0-35.0); MCHC 30.8 g/dL (31.0-37.0); MCV 90.1 fL (80.0-100.0); Mean Platelet Volume 7.3; Platelet Count 256 k/uL (150-450); RBC 2.95 m/uL (4.30-5.90); RDW 16.7 % (11.5-15.5); WBC 10.3 k/uL (3.8-10.6)
[2019-04-06 17:59] LABS: African American GFR (CKD) 62.7 (60.0-200.0); Anion Gap 9.8 mmol/L (4.00-12.00); BUN/Creat Ratio 16.15 Ratio (12.00-20.00); Calcium 9.3 mg/dL (8.7-10.3); Carbon Dioxide 22.2 mmol/L (21.6-31.8); Magnesium 1.6 mg/dL (1.5-2.4); Potassium 3.6 mmol/L (3.5-5.5)
[2019-04-06 18:03] LABS: Vitamin D 25 Hydroxy 18.4 ng/mL (30.0-100.0)
[2019-04-11 15:35] LABS: Iron Saturation 4.64 (15.00-50.00)
== END | disposition home or self-care (01) ==
LOC: LABWHC1 12:18
PROVIDERS: ATTEND Internal Medicine
DX: E55.9 Vitamin D deficiency, unspecified (principal); D50.9 Iron deficiency anemia, unspecified; N18.3 Chronic kidney disease, stage 3 (moderate)
CPT/HCPCS: 36415; 80048; 82306; 82607; 82728; 82746; 83540; 83550; 83735; 83970; 85027

== ENCOUNTER → 2019-04-21 | Outpatient (CLI) | payer MEDICARE ==
[2019-04-21 10:32] LABS: Anisocytosis Slight; Basophils # (A) 0.1 k/uL (0-0.2); Basophils % (A) 1 %; Eosinophils # (A) 0.7 k/uL (0-0.7); Eosinophils % (A) 8 %; HCT 30.3 % (39.0-53.0); HGB 9.1 gm/dL (13.0-17.5); Hypochromasia Marked; Lymphocytes % (A) 11 %; MCH 27.5 pg (25.0-35.0); MCHC 30.1 g/dL (31.0-37.0); MCV 91.6 fL (80.0-100.0); Monocytes # (A) 0.7 k/uL (0-1.0); Monocytes % (A) 8 %; Neutrophils # (A) 6.1 k/uL (1.3-7.7); Neutrophils % (A) 70 %; Platelet Count 312 k/uL (150-450); RBC 3.31 m/uL (4.30-5.90); RDW 17.6 % (11.5-15.5); WBC 8.8 k/uL (3.8-10.6)
[2019-04-21 10:48] LABS: Appearance,Urine Clear (Clear); Bilirubin,Urine Negative (Negative); Blood,Urine Negative (Negative); Color,Urine Yellow; Glucose,Urine (UA) Negative (Negative); Ketones,Urine Negative (Negative); Leukocyte Esterase,Urine Negative (Negative); Nitrite,Urine Negative (Negative); PH, Urine 5.5 (5.0-8.0); Protein,Urine Negative (Negative); Specific Gravity,Urine 1.018 (1.001-1.035); Urobilinogen,Urine <2.0 mg/dL (<2.0)
[2019-04-21 12:52] LABS: Erythrocyte Sedimentation Rate 67 mm/hr (0-15)
[2019-04-21 17:15] LABS: African American GFR (CKD) 69.1 (60.0-200.0); Anion Gap 9.7 mmol/L (4.00-12.00); BUN/Creat Ratio 17.5 Ratio (12.00-20.00); Calcium 9.2 mg/dL (8.7-10.3); Carbon Dioxide 22.3 mmol/L (21.6-31.8); Magnesium 1.9 mg/dL (1.5-2.4); Potassium 4.6 mmol/L (3.5-5.5)
== END | disposition home or self-care (01) ==
LOC: LABWHC1 09:53
PROVIDERS: ATTEND Internal Medicine
DX: D50.9 Iron deficiency anemia, unspecified (principal); N18.3 Chronic kidney disease, stage 3 (moderate)
CPT/HCPCS: 36415; 80048; 81003; 83735; 85025; 85652

== ENCOUNTER → 2019-05-05 | Outpatient (CLI) | payer MEDICARE ==
[2019-05-05 10:47] LABS: Anisocytosis Slight; Basophils # (A) 0.1 k/uL (0-0.2); Basophils % (A) 1 %; Eosinophils # (A) 0.7 k/uL (0-0.7); Eosinophils % (A) 8 %; HCT 33.7 % (39.0-53.0); HGB 10.2 gm/dL (13.0-17.5); Hypochromasia Marked; Lymphocytes % (A) 12 %; MCH 27.5 pg (25.0-35.0); MCHC 30.2 g/dL (31.0-37.0); Mean Platelet Volume 7.5; Monocytes # (A) 0.6 k/uL (0-1.0); Monocytes % (A) 8 %; Neutrophils # (A) 5.9 k/uL (1.3-7.7); Neutrophils % (A) 71 %; Platelet Count 270 k/uL (150-450); RDW 17.4 % (11.5-15.5); WBC 8.4 k/uL (3.8-10.6)
[2019-05-05 17:06] LABS: African American GFR (CKD) 69.1 (60.0-200.0); Anion Gap 9.2 mmol/L (4.00-12.00); BUN/Creat Ratio 21.67 Ratio (12.00-20.00); Calcium 9.3 mg/dL (8.7-10.3); Carbon Dioxide 21.8 mmol/L (21.6-31.8); Non-African American GFR(CKD) 59.6 (60.0-200.0); Potassium 4.2 mmol/L (3.5-5.5)
[2019-05-05 17:14] LABS: Ferritin 40.3 ng/mL (22.0-322.0)
[2019-05-05 17:19] LABS: Iron Saturation 16.94 (15.00-50.00)
[2019-05-05 20:58] LABS: Hemoglobin A1C 5.5 % (4.0-6.0)
== END | disposition home or self-care (01) ==
LOC: LABWHC1 09:09
PROVIDERS: ATTEND Internal Medicine
DX: N18.3 Chronic kidney disease, stage 3 (moderate) (principal); E11.22 Type 2 diabetes mellitus with diabetic chronic kidney disease; D63.1 Anemia in chronic kidney disease
CPT/HCPCS: 36415; 80048; 82728; 83036; 83540; 83550; 85025

== ENCOUNTER → 2019-06-12 | Outpatient (CLI) | payer MEDICARE ==
--- NOTE | 2019-06-13 04:38 | CT ---
EXAMINATION TYPE: CT ChestAbdPelvis w con DATE OF EXAM: 06/12/2019 COMPARISON: 03/22/2019 HISTORY: 74-year-old male Pancreatic cancer, observe for METS TECHNIQUE: Contiguous axial scanning of the chest, abdomen, and pelvis performed with IV Contrast, pa tient injected with 80 mL of Isovue 300. Delayed images through the kidneys were obtained. Coronal/sa gittal reconstructions performed. CT DLP: 1147.5 mGycm Automated exposure control for dose reduction was used. FINDINGS: Chest: Heart upper limits of normal in size without pericardial effusion. Coronary vessel calcifications are present. Mild aneurysm ascending aorta at 4.1 cm with conventional arch vessel branching anatomy. Right anterior chest wall injection port with catheter tip seen to the level of the lower right inter nal jugular vein. It may be looped higher up in the neck. Large caliber to the main right and left pulmonary arteries measuring 3.5 and 2.6 cm, respectively, s uggesting underlying pulmonary arterial hypertension. No thoracic lymphadenopathy by CT size criteria. No consolidation or pleural effusion. No new pulmonary nodules or masses. ABDOMEN: No focal liver lesion or biliary ductal dilatation. Portal venous system is patent though again, the splenic vein appears attenuated with some small collaterals. Similar hypoenhancing soft tissue in the region of the jean hepatis extending to the pancreatic neck region with upstream pancreatic atrophy and dilatation of the main pancreatic duct up to 1 cm. The abnormal soft tissue continues to encase the common hepatic artery to its bifurcation measuring 5 .3 x 1.6 cm versus 5.3 x 2.1 cm on the outside 01/05/2019 exam. No enlarging lymphadenopathy is identified. Cholecystectomy clips. Adrenal glands, kidneys, and spleen appear within normal limits. No dilated small bowel, free fluid, or free air. There is short segment 7 branch of wall thickening near the hepatic flexure on axial image 71. Modera te scattered stool. Left-sided colonic diverticulosis without findings of acute diverticulitis. Pelvis: Bladder partially distended. Prostate gland measures 4.6 cm wide. Pelvic phleboliths. No abnormal flu id collection in the pelvis or pelvic lymphadenopathy. Bones: Osteitis pubis. Multilevel degenerative disc disease throughout the lumbar spine. No osseous destruct orestes process. IMPRESSION: 1. STABLE HYPOVASCULAR SOFT TISSUE IN THE REGION OF THE PANCREATIC NECK EXTENDING INTO THE JEAN HEPA TIS MEASURING UP TO 5.3 X 1.6 CM (VERSUS 5.3 X 2.1 CM ON OUTSIDE 01/05/2019 CT). THIS CONTINUES TO ENC ASE THE COMMON HEPATIC ARTERY TO ITS BIFURCATION AND CAUSE UPSTREAM PANCREATIC ATROPHY AND PANCREATIC DUCTAL DILATATION. 2. NO NEW OR ENLARGING MASS OR LYMPHADENOPATHY. 3. A SEGMENT OF THICKENED COLON AT THE LEVEL OF THE HEPATIC FLEXURE. CORRELATE FOR INFECTIOUS OR INFL AMMATORY COLITIS. 4. 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
== END | disposition home or self-care (01) ==
LOC: RADPROMAIN 10:27
PROVIDERS: ATTEND Internal Medicine Hematology & Oncology
DX: K86.89 Other specified diseases of pancreas (principal); I71.2 Thoracic aortic aneurysm, without rupture; K63.89 Other specified diseases of intestine; C25.0 Malignant neoplasm of head of pancreas
CPT/HCPCS: 82565; 84520; 71260; 74177; J1642; Q9967 ×2

== ENCOUNTER → 2019-08-16 | Outpatient (CLI) | payer MEDICARE ==
[2019-08-16 11:14] LABS: HCT 28.8 % (39.0-53.0); HGB 9.1 gm/dL (13.0-17.5); Hypochromasia Marked; MCH 29.8 pg (25.0-35.0); MCHC 31.5 g/dL (31.0-37.0); MCV 94.4 fL (80.0-100.0); Mean Platelet Volume 6.3; Platelet Count 304 k/uL (150-450); RBC 3.05 m/uL (4.30-5.90); RDW 15.7 % (11.5-15.5); WBC 8.1 k/uL (3.8-10.6)
[2019-08-16 11:16] LABS: Appearance,Urine Clear (Clear); Bilirubin,Urine Negative (Negative); Blood,Urine Negative (Negative); Color,Urine Yellow; Glucose,Urine (UA) Negative (Negative); Ketones,Urine Negative (Negative); Leukocyte Esterase,Urine Negative (Negative); Nitrite,Urine Negative (Negative); Protein,Urine Negative (Negative); Specific Gravity,Urine 1.015 (1.001-1.035); Urobilinogen,Urine <2.0 mg/dL (<2.0)
[2019-08-16 18:03] LABS: Protein, Total 5.9 g/dL (6.2-8.2)
[2019-08-16 18:07] LABS: % Iron Saturation 15.14 (15.00-50.00); African American GFR (CKD) 57.4 (60.0-200.0); BUN/Creat Ratio 18.57 Ratio (12.00-20.00); Calcium 9.4 mg/dL (8.7-10.3); Non-African American GFR(CKD) 49.5 (60.0-200.0); Phosphorus 3.4 mg/dL (2.4-5.1); Potassium 4.4 mmol/L (3.5-5.5)
[2019-08-16 18:40] LABS: Ferritin 14.3 ng/mL (22.0-322.0)
[2019-08-16 19:58] LABS: Hemoglobin A1C 5.9 % (4.0-6.0)
[2019-08-17 12:46] LABS: Albumin 3.32 g/dL (3.80-4.90); Gamma Globulin 0.55 g/dL (0.70-1.50)
== END | disposition home or self-care (01) ==
LOC: LABWHC1 09:05
PROVIDERS: ATTEND Internal Medicine
DX: E11.22 Type 2 diabetes mellitus with diabetic chronic kidney disease (principal); N18.3 Chronic kidney disease, stage 3 (moderate); G64 Other disorders of peripheral nervous system
CPT/HCPCS: 36415; 80048; 81003; 82306; 82728; 83036; 83540; 83550; 83970; 84100; 84165; 85027; 85045; 86334; 87086

== ENCOUNTER → 2019-09-20 | Outpatient (CLI) | payer MEDICARE ==
--- NOTE | 2019-09-20 13:20 | CT ---
EXAMINATION TYPE: CT ChestAbdPelvis w con DATE OF EXAM: 09/20/2019 COMPARISON: 06/12/2019 and 03/22/2019 HISTORY: 74-year-old male Pancreatic cancer. TECHNIQUE: Contiguous axial scanning of the chest, abdomen, and pelvis performed with IV Contrast, pa tient injected with 80 mL of Isovue 300. Delayed images through the kidneys were obtained. Coronal/sa gittal reconstructions performed. CT DLP: 1443.1 mGycm Automated exposure control for dose reduction was used. FINDINGS: CHEST: Right anterior chest wall injection port. The catheter tip remains high at the lower right internal j ugular vein. Heart normal size without pericardial effusion. Distal LAD calcifications are noted. Linear ectatic at 3.8 cm. In dimension arch vessel branching anatomy. Large caliber to the main right and the pulmonary arteries at 3.3 and 2.8 cm, respectively, suggestin g underlying pulmonary hypertension. No thoracic lymphadenopathy by CT size criteria. Prominent 1.0 cm subcarinal lymph node increased in size. Peribronchial patchy opacities as well as tree-in-bud opacities throughout the mid and lower lungs, r ight greater than left, new from prior exam. ABDOMEN: No focal liver lesion or biliary ductal dilatation. Portal venous system is patent. Cholecystectomy clips. Similar ill-defined soft tissue density in the region of the jean hepatis extending to the head of t he pancreas, axial image 59 and 60. Similar diffuse atrophy of the pancreas with upstream main pancre atic ductal dilatation. No progressive mass is identified. Adrenal glands, right kidney, spleen appear within normal limits. Duplex left renal collecting system redemonstrated. Unable to determine where the 2 ureters come toge ther. Mild to moderate atherosclerotic calcifications infrarenal abdominal aorta and common iliac arteries. No mesenteric or retroperitoneal lymphadenopathy. Left-sided colonic diverticulosis, greatest in the redundant sigmoid colon. No pericolic inflammatory change. PELVIS: Bladder urine distended. Prostate gland measures 4.2 cm wide. Pelvic fluid ligaments. No abnormal flu id collection in the pelvis or pelvic lymphadenopathy. Bones: Osteitis pubis. Mild degenerative changes at the hips. Advanced degenerative disc disease throughout the lumbar spine. No osseous destructive process. IMPRESSION: 1. UNCHANGED VAGUE SOFT TISSUE DENSITY IN THE REGION OF THE JEAN HEPATIS EXTENDING TO THE PANCREATIC HEAD REGION WITH STABLE UPSTREAM PANCREATIC ATROPHY AND DUCTAL DILATATION. NO NEW OR ENLARGING MASS OR NEW LYMPHADENOPATHY SEEN. 2. NEW PATCHY AND TREE-IN-BUD OPACITIES WITHIN THE MID AND LOWER LUNGS, RIGHT GREATER THAN LEFT. JEWELS ELATE WITH PATIENT'S RESPIRATORY SYMPTOMS. MULTIFOCAL PNEUMONIA, INFECTIOUS BRONCHIOLITIS, AND ATYPIC AL INFECTIONS ARE IN THE DIFFERENTIAL. 3. RIGHT ANTERIOR CHEST WALL INJECTION PORT. THE CATHETER TIP REMAINS HIGH IN THE LOWER ASPECT OF THE RIGHT INTERNAL JUGULAR VEIN. 4. INCIDENTAL: DISTAL LAD CALCIFICATIONS. PULMONARY ARTERIAL HYPERTENSION. LEFT-SIDED COLONIC DIVERTI CULOSIS.
== END | disposition home or self-care (01) ==
LOC: RADPROMAIN 10:18
PROVIDERS: ATTEND Internal Medicine Hematology & Oncology
DX: J98.4 Other disorders of lung (principal); K86.89 Other specified diseases of pancreas; K83.8 Other specified diseases of biliary tract; M79.89 Other specified soft tissue disorders; C25.0 Malignant neoplasm of head of pancreas; K86.81 Exocrine pancreatic insufficiency; Z79.84 Long term (current) use of oral hypoglycemic drugs
CPT/HCPCS: 36415; 71260; 74177; 82565; 84520

== ENCOUNTER → 2019-11-24 | Outpatient (CLI) | payer MEDICARE ==
[2019-11-24 10:17] LABS: HCT 38.2 % (39.0-53.0); HGB 11.9 gm/dL (13.0-17.5); Hypochromasia Slight; MCH 28.1 pg (25.0-35.0); MCHC 31.3 g/dL (31.0-37.0); MCV 89.8 fL (80.0-100.0); Platelet Count 240 k/uL (150-450); RBC 4.25 m/uL (4.30-5.90); RDW 15.3 % (11.5-15.5); WBC 10.5 k/uL (3.8-10.6)
[2019-11-24 10:26] LABS: Appearance,Urine Clear (Clear); Bilirubin,Urine Negative (Negative); Blood,Urine Negative (Negative); Color,Urine Light Yellow; Glucose,Urine (UA) Trace (Negative); Ketones,Urine Negative (Negative); Leukocyte Esterase,Urine Negative (Negative); Nitrite,Urine Negative (Negative); PH, Urine 5.5 (5.0-8.0); Protein,Urine Trace (Negative); Specific Gravity,Urine 1.019 (1.001-1.035); Urobilinogen,Urine <2.0 mg/dL (<2.0)
[2019-11-24 15:55] LABS: Urine Creatinine 127.1 mg/dL
[2019-11-24 16:17] LABS: African American GFR (CKD) 57.4 (60.0-200.0); Anion Gap 12.6 mmol/L (4.00-12.00); BUN/Creat Ratio 17.86 Ratio (12.00-20.00); Calcium 9.3 mg/dL (8.7-10.3); Carbon Dioxide 23.4 mmol/L (21.6-31.8); Non-African American GFR(CKD) 49.5 (60.0-200.0); Potassium 4.1 mmol/L (3.5-5.5)
[2019-11-24 20:15] LABS: Hemoglobin A1C 7.8 % (4.0-6.0)
== END | disposition home or self-care (01) ==
LOC: LABWHC1 08:49
PROVIDERS: ATTEND Internal Medicine
DX: N18.3 Chronic kidney disease, stage 3 (moderate) (principal); R73.02 Impaired glucose tolerance (oral)
CPT/HCPCS: 36415; 80048; 81003; 82043; 82570; 83036; 84460; 85027

== ENCOUNTER → 2019-11-27 | Outpatient (CLI) | payer MEDICARE | END | disposition home or self-care (01) | DX: R60.0 Localized edema (principal) ==

== ENCOUNTER → 2019-12-27 | Outpatient (CLI) | payer MEDICARE ==
[2019-12-27 10:55] LABS: Basophils % (A) 0 %; Eosinophils # (A) 0.3 k/uL (0-0.7); Eosinophils % (A) 2 %; HCT 37.8 % (39.0-53.0); HGB 12.3 gm/dL (13.0-17.5); Lymphocytes # (A) 1.4 k/uL (1.0-4.8); Lymphocytes % (A) 10 %; MCH 28.6 pg (25.0-35.0); MCHC 32.5 g/dL (31.0-37.0); MCV 88.1 fL (80.0-100.0); Mean Platelet Volume 7.8; Monocytes # (A) 0.9 k/uL (0-1.0); Monocytes % (A) 6 %; Neutrophils # (A) 11.4 k/uL (1.3-7.7); Neutrophils % (A) 80 %; Platelet Count 326 k/uL (150-450); RDW 15.3 % (11.5-15.5); WBC 14.3 k/uL (3.8-10.6)
[2019-12-27 15:52] LABS: Albumin 4.3 g/dL (3.80-4.90); Albumin/Globulin Ratio 2.15 (1.60-3.17); Bilirubin, Conjugated 0.3 mg/dL (0.20-0.40); Bilirubin,Unconjugated 0.3 mg/dL; Total Bilirubin 0.6 mg/dL (0.2-1.2); Total Protein 6.3 g/dL (6.2-8.2)
== END | disposition home or self-care (01) ==
LOC: LABWHC1 10:32
PROVIDERS: ATTEND Internal Medicine
DX: D64.9 Anemia, unspecified (principal); R74.0 Nonspecific elevation of levels of transaminase and lactic acid dehydrogenase [LDH]
CPT/HCPCS: 36415; 80076; 85025

== ENCOUNTER → 2020-02-15 | Outpatient (CLI) | payer MEDICARE ==
--- NOTE | 2020-02-15 15:33 | CT ---
EXAMINATION TYPE: CT ChestAbdPelvis w con DATE OF EXAM: 02/15/2020 INDICATION: Pancreatic cancer COMPARISON: 09/20/2019 CT DLP: 1522 mGycm CONTRAST: Performed with Oral Contrast and with IV Contrast, patient injected with 100 ml mL of Isovue 300. TECHNIQUE: Axial images at 5 mm thick sections. Reconstructed images in the coronal plane. Delayed images through the kidneys. FINDINGS: CT CHEST: Portion of the thyroid visualized is normal. No suspicious lung nodules or focal infiltrates are present. No enlarged mediastinal or hilar adenopathy is evident. The ascending aorta diameter at the level of the main pulmonary artery is 3.9 cm. The main pulmonary artery diameter at the bifurcation is 3.8 cm. Coronary artery calcification is noted. CT ABDOMEN: Liver: Normal Spleen: Normal Pancreas: No suspicious masses are evident. Pancreas morphology appears stable in appearance from the 09/20/2019 comparison. Soft tissue encasing the common hepatic artery to the bifurcation measures 4.3 x 1.2 cm. Previous korin surement 5.3 x 1.6 cm May 2019. Adrenal glands: The adrenal glands are normal. Gallbladder: Surgically absent Kidneys: No masses are evident. No hydronephrosis is present. No cysts are present. Delayed images were obtained through the kidneys, which remain unremarkable. Aorta: Vascular calcification is within the aorta. Inferior vena cava: Normal. CT PELVIS: Loops of bowel within the abdomen and pelvis are normal. There are loops of bowel which are incom pletely distended or lack oral contrast limiting their evaluation. Appendix: Normal as visualized. Urinary bladder: Normal. Genitourinary structures: Prostate is prominent Osseous structures: No suspicious lytic or sclerotic lesions. IMPRESSIONS: 1. No suspicious changes to suggest metastatic pancreatic cancer. 2. Soft tissue density in the perihepatic artery region is diminished in size.
== END | disposition home or self-care (01) ==
LOC: RADPROMAIN 13:21
PROVIDERS: ATTEND Internal Medicine Hematology & Oncology
DX: M79.89 Other specified soft tissue disorders (principal); C25.0 Malignant neoplasm of head of pancreas; Z88.8 Allergy status to other drugs, medicaments and biological substances
CPT/HCPCS: 82565; 84520; 71260; 74177; J1642; Q9967

== ENCOUNTER → 2020-02-27 | Outpatient (CLI) | payer MEDICARE ==
[2020-02-27 12:15] LABS: Appearance,Urine Clear (Clear); Bilirubin,Urine Negative (Negative); Blood,Urine Negative (Negative); Color,Urine Yellow; Glucose,Urine (UA) Negative (Negative); Ketones,Urine Negative (Negative); Leukocyte Esterase,Urine Negative (Negative); Nitrite,Urine Negative (Negative); Protein,Urine Trace (Negative); Specific Gravity,Urine 1.018 (1.001-1.035)
[2020-02-27 17:36] LABS: Urine Creatinine 148.9 mg/dL
[2020-02-27 19:29] LABS: African American GFR (CKD) 62.3 (60.0-200.0); Anion Gap 10.2 mmol/L (4.00-12.00); BUN/Creat Ratio 16.92 Ratio (12.00-20.00); Carbon Dioxide 22.8 mmol/L (21.6-31.8); Non-African American GFR(CKD) 53.8 (60.0-200.0); Potassium 4.2 mmol/L (3.5-5.5)
[2020-02-27 22:41] LABS: Hemoglobin A1C 7.3 % (4.0-6.0)
== END | disposition home or self-care (01) ==
LOC: LABWHC1 10:42
PROVIDERS: ATTEND Internal Medicine
DX: E11.65 Type 2 diabetes mellitus with hyperglycemia (principal); E11.22 Type 2 diabetes mellitus with diabetic chronic kidney disease; N18.3 Chronic kidney disease, stage 3 (moderate)
CPT/HCPCS: 36415; 80048; 81003; 82043; 82570; 83036

== ENCOUNTER → 2020-05-16 | Outpatient (CLI) | payer MEDICARE ==
[2020-05-16 10:01] LABS: HCT 35.9 % (39.0-53.0); HGB 11.4 gm/dL (13.0-17.5); Hypochromasia Slight; MCH 28.5 pg (25.0-35.0); MCHC 31.8 g/dL (31.0-37.0); MCV 89.8 fL (80.0-100.0); Mean Platelet Volume 8.2; Platelet Count 289 k/uL (150-450); RDW 14.6 % (11.5-15.5); WBC 10.3 k/uL (3.8-10.6)
== END | disposition home or self-care (01) ==
LOC: LABWHC1 08:37
PROVIDERS: ATTEND Internal Medicine
DX: D64.9 Anemia, unspecified (principal)
CPT/HCPCS: 36415; 85027

== ENCOUNTER → 2020-06-05 | Outpatient (CLI) | payer MEDICARE ==
[2020-06-05 09:43] LABS: Appearance,Urine Clear (Clear); Bilirubin,Urine Negative (Negative); Blood,Urine Negative (Negative); Color,Urine Yellow; Glucose,Urine (UA) Negative (Negative); Ketones,Urine Negative (Negative); Leukocyte Esterase,Urine Negative (Negative); Nitrite,Urine Negative (Negative); PH, Urine 5.5 (5.0-8.0); Protein,Urine Trace (Negative); Specific Gravity,Urine 1.016 (1.001-1.035); Urobilinogen,Urine <2.0 mg/dL (<2.0)
[2020-06-05 18:36] LABS: Anion Gap 11.1 mmol/L (4.00-12.00); BUN/Creat Ratio 12.14 Ratio (12.00-20.00); Carbon Dioxide 19.9 mmol/L (21.6-31.8); Non-African American GFR(CKD) 49.1 (60.0-200.0); Potassium 3.8 mmol/L (3.5-5.5)
[2020-06-05 19:12] LABS: Hemoglobin A1C 6.3 % (4.0-6.0)
[2020-06-06 03:05] LABS: Urine Creatinine 198.8 mg/dL
== END | disposition home or self-care (01) ==
LOC: LABWHC1 08:17
PROVIDERS: ATTEND Internal Medicine
DX: N18.3 Chronic kidney disease, stage 3 (moderate) (principal); E11.22 Type 2 diabetes mellitus with diabetic chronic kidney disease; E11.65 Type 2 diabetes mellitus with hyperglycemia
CPT/HCPCS: 36415; 80048; 81003; 82043; 82570; 83036

== ENCOUNTER → 2020-08-13 | Outpatient (CLI) | payer MEDICARE ==
--- NOTE | 2020-08-13 13:44 | CT ---
EXAMINATION TYPE: CT ChestAbdPelvis wo con DATE OF EXAM: 08/13/2020 COMPARISON: CT February 15, 2020 and older CTs HISTORY: Pancreatic cancer CT DLP: 1357 mGycm. Automated Exposure Control for Dose Reduction was Utilized. TECHNIQUE: CT scan of the thorax, abdomen and pelvis is performed without IV contrast. IV contrast could not be given today due to diminished renal function. FINDINGS: LUNGS: The lungs are grossly clear, there is no concerning new greater than 5 mm parenchymal mass or nodule identified. There is no pleural effusion or pneumothorax seen. The tracheobronchial tree is patent. MEDIASTINUM: There are no new greater than 1 cm hilar or mediastinal lymph nodes. No cardiomegaly o r pericardial effusion is seen. Moderate three-vessel coronary artery calcification is present. Stab le enlarged pulmonary arteries consistent with underlying pulmonary artery hypertension. The ascendin g aorta measures up to to 4.0 4. Centimeters in diameter unchanged from prior. OTHER: Stable coiled right internal jugular Mediport catheter terminating in the right internal jugul ar vein. LIVER/GB: Cholecystectomy clips redemonstrated. PANCREAS: Persistent ductal dilatation stable most prominent proximal to mid. Some atrophy and/or lety gical resection at the pancreatic head again seen. No new or enlarging mass. No increasing ductal dil atation. SPLEEN: No significant abnormality is seen. ADRENALS: No significant abnormality is seen. KIDNEYS: No renal stones or hydronephrosis seen bilaterally. BOWEL: Some scattered colonic diverticuli no CT evidence for acute diverticulitis. Suboptimal evaluat ion of stomach due to poor distention. Nonspecific air-fluid level in the duodenal sweep. No suspicio us small large bowel dilatation. GENITAL ORGANS: Enlarged prostate gland consistent with BPH redemonstrated scattered bilateral pelvic phleboliths. LYMPH NODES: No no greater than 1cm abdominal or pelvic lymph nodes are appreciated. OSSEOUS STRUCTURES: Straightening of spine with moderate multilevel disc space narrowing and spurring in the lumbar spine. Multilevel subtle spondylolisthesis. OTHER: Stable tiny fat-containing right inguinal hernia. IMPRESSION: Stable appearance to the level of pancreatic head suggests successfully treated neoplasm. No new suspicious mass or adenopathy to suggest metastatic malignancy.
== END | disposition home or self-care (01) ==
LOC: RADCTMAIN 10:43
PROVIDERS: ATTEND Internal Medicine Hematology & Oncology
DX: C25.0 Malignant neoplasm of head of pancreas (principal); Z88.0 Allergy status to penicillin
CPT/HCPCS: 36415; 71250; 74176; 82565; 84520

== ENCOUNTER → 2020-11-08 | Outpatient (CLI) | payer MEDICARE ==
--- NOTE | 2020-11-08 12:13 | CT ---
EXAMINATION TYPE: CT angio chest DATE OF EXAM: 11/08/2020 COMPARISON: None HISTORY: Thoracic aortic aneurysm CT DLP: 421.50 mGycm CONTRAST: CTA thoracic aorta with 3-D reconstruction is performed and without and with IV Contrast, patient inj ected with 80 mL of Isovue 370. Contrast CTA of the thoracic aorta was performed from the lung apex through the upper abdomen. 3D re construction imaging obtained at a separate workstation. CT Chest: THORACIC AORTA: No evidence for thoracic aortic aneurysm. Descending thoracic aorta measures 3.8 cm A P dimension and does not aneurysmal at this time. Mild atheromatous changes seen. There is no eviden ce for dissection or periaortic collection. LUNGS: The lungs are clear and free of infiltrate or atelectasis. No pulmonary nodule or mass is det ected. No pleural effusion or CT evidence of interstitial lung disease. MEDIASTINUM: No evidence for mediastinal hematoma. The heart is not enlarged. No evidence for med iastinal mass or adenopathy. HILAR STRUCTURES: No evidence for mass. No hilar adenopathy is appreciated. OTHER: No significant abnormality. IMPRESSION- No evidence for thoracic aortic aneurysm.
== END | disposition home or self-care (01) ==
LOC: RADCTMAIN 10:14
PROVIDERS: ATTEND Internal Medicine Interventional Cardiology
DX: I71.2 Thoracic aortic aneurysm, without rupture (principal)
CPT/HCPCS: 82565; 84520; 71275; J1642; Q9967

== ENCOUNTER → 2020-11-11 | Outpatient (CLI) | payer MEDICARE ==
[2020-11-11 10:30] LABS: Appearance,Urine Cloudy (Clear); Bilirubin,Urine Negative (Negative); Blood,Urine Negative (Negative); Color,Urine Yellow; Glucose,Urine (UA) Negative (Negative); Hyaline Casts,Urine 3 /lpf (0-2); Ketones,Urine Negative (Negative); Leukocyte Esterase,Urine Trace (Negative); Mucus,Urine Rare /hpf; Nitrite,Urine Negative (Negative); PH, Urine 5.5 (5.0-8.0); Protein,Urine 1+ (Negative); RBC,Urine 4 /hpf (0-5); Uric Acid Crystals,Urine Rare /hpf; Urobilinogen,Urine <2.0 mg/dL (<2.0); WBC,Urine 8 /hpf (0-5)
[2020-11-11 15:04] LABS: HCT 39.7 % (39.6-50.0); HGB 12.5 g/dL (13.0-17.0); MCH 27.8 pg (27.0-32.0); MCHC 31.5 g/dL (32.0-37.0); MCV 88.2 fL (80.0-97.0); Mean Platelet Volume 10.9 fL (9.5-12.2); Platelet Count 294 X 10*3/uL (140-440); RDW 15.4 % (11.5-14.5); WBC 9.67 X 10*3/uL (4.50-10.00)
[2020-11-11 16:15] LABS: Hemoglobin A1C 6.2 % (4.0-6.0)
[2020-11-11 16:18] LABS: % Iron Saturation 12.69 (15.00-50.00); African American GFR (CKD) 34.9 (60.0-200.0); Albumin 4.4 g/dL (3.80-4.90); Albumin/Globulin Ratio 2.44 (1.60-3.17); Anion Gap 8.6 mmol/L (4.00-12.00); BUN/Creat Ratio 15.24 Ratio (12.00-20.00); Calcium 8.8 mg/dL (8.7-10.3); Carbon Dioxide 21.4 mmol/L (21.6-31.8); Globulin 1.8 g/dL (1.6-3.3); Non-African American GFR(CKD) 30.1 (60.0-200.0); Phosphorus 3.6 mg/dL (2.4-5.1); Potassium 3.9 mmol/L (3.5-5.5); Total Bilirubin 0.5 mg/dL (0.2-1.2); Total Protein 6.2 g/dL (6.2-8.2)
[2020-11-11 16:21] LABS: Ferritin 42.3 ng/mL (22.0-322.0)
[2020-11-11 18:05] LABS: Urine Creatinine 242.2 mg/dL
== END | disposition home or self-care (01) ==
LOC: LABWHC1 09:04
PROVIDERS: ATTEND Internal Medicine
DX: E11.21 Type 2 diabetes mellitus with diabetic nephropathy (principal); E11.22 Type 2 diabetes mellitus with diabetic chronic kidney disease; N18.32 Chronic kidney disease, stage 3b
CPT/HCPCS: 36415; 80053; 81001; 82043; 82306; 82570; 82728; 83036; 83540; 83550; 83970; 84100; 85027; 87086

== ENCOUNTER → 2020-12-10 | Outpatient (CLI) | payer MEDICARE ==
[2020-12-10 13:11] LABS: Appearance,Urine Clear (Clear); Bilirubin,Urine Negative (Negative); Blood,Urine Negative (Negative); Color,Urine Yellow; Glucose,Urine (UA) Negative (Negative); Ketones,Urine Negative (Negative); Leukocyte Esterase,Urine Negative (Negative); Nitrite,Urine Negative (Negative); Protein,Urine Trace (Negative); Specific Gravity,Urine 1.017 (1.001-1.035); Urobilinogen,Urine <2.0 mg/dL (<2.0)
[2020-12-10 22:18] LABS: Anion Gap 9.3 mmol/L (4.00-12.00); BUN/Creat Ratio 15.29 Ratio (12.00-20.00); Calcium 9.1 mg/dL (8.7-10.3); Carbon Dioxide 22.7 mmol/L (21.6-31.8); Non-African American GFR(CKD) 38.9 (60.0-200.0); Potassium 3.8 mmol/L (3.5-5.5)
== END | disposition home or self-care (01) ==
LOC: LABWHC1 11:42
PROVIDERS: ATTEND Internal Medicine
DX: N18.32 Chronic kidney disease, stage 3b (principal)
CPT/HCPCS: 36415; 80048; 81003

== ENCOUNTER → 2021-03-31 | Outpatient (CLI) | payer MEDICARE ==
--- NOTE | 2021-03-31 16:52 | CT ---
EXAMINATION TYPE: CT ChestAbdPelvis w con DATE OF EXAM: 03/31/2021 INDICATION: Malignant neoplasm of pancreatic head. COMPARISON: 11/08/2020, 08/13/2020 CT DLP: 1302.30 mGycm CONTRAST: Performed with Oral Contrast and with IV Contrast, patient injected with 80 mL of Isovue 300. TECHNIQUE: Axial images at 5 mm thick sections. Reconstructed images in the coronal plane. Delayed images through the kidneys. FINDINGS: CT CHEST: Portion of the thyroid visualized is normal. No suspicious lung nodules or focal infiltrates are present. No enlarged mediastinal or hilar adenopathy is evident. The ascending aorta diameter at the level of the main pulmonary artery is 4.0 cm. The main pulmonary artery diameter at the bifurcation is 4.0 cm. Coronary artery calcification is present. CT ABDOMEN: Liver: Normal Spleen: Normal Pancreas: Atrophic. The duct appears to be very prominent throughout its visualized course. The pancr eatic head mass however is not clearly identified. There is an abrupt duct cut off at the level of th e splenic artery. Adrenal glands: The adrenal glands are normal. Gallbladder: Normal Kidneys: No masses are evident. No hydronephrosis is present. No cysts are present. Delayed images were obtained through the kidneys, which remain unremarkable. Aorta: Vascular calcification is within the aorta. Inferior vena cava: Normal. CT PELVIS: Loops of bowel within the abdomen and pelvis are normal. Diverticulosis without acute diverticulitis . There are loops of bowel which are incompletely distended or lack oral contrast limiting their ev aluation. Appendix: Not identified. No dilated tubular structure or inflammatory changes are evident. Urinary bladder: Normal. Genitourinary structures: Prostate is prominent Osseous structures: No suspicious lytic or sclerotic lesions. Degenerative disc changes at to the tho racic and lumbar spine. IMPRESSIONS: 1. Pancreatic head mass not identified. However, body and tail of the pancreas are markedly dilated w ith cut off duct sign with atrophy of the pancreas. 2. Diverticulosis without acute diverticulitis.
== END | disposition home or self-care (01) ==
LOC: RADPROMAIN 13:46
PROVIDERS: ATTEND Internal Medicine Hematology & Oncology
DX: C25.0 Malignant neoplasm of head of pancreas (principal); K57.90 Diverticulosis of intestine, part unspecified, without perforation or abscess without bleeding
CPT/HCPCS: 82565; 84520; 71260; 74177; 36415; J1642; Q9967

== ENCOUNTER → 2021-06-02 | Outpatient (CLI) | payer MEDICARE ==
[2021-06-02 21:12] LABS: African American GFR (CKD) 56.6 (60.0-200.0); Anion Gap 9.7 mmol/L (4.00-12.00); Calcium 9.5 mg/dL (8.7-10.3); Carbon Dioxide 22.3 mmol/L (21.6-31.8); Chol/HDL Ratio 2.52; Non-African American GFR(CKD) 48.8 (60.0-200.0); Potassium 4.1 mmol/L (3.5-5.5)
[2021-06-02 21:13] LABS: Magnesium 1.8 mg/dL (1.5-2.4)
== END | disposition home or self-care (01) ==
LOC: LABWHC1 10:24
PROVIDERS: ATTEND Nurse Practitioner Adult Health
DX: I10 Essential (primary) hypertension (principal); E78.5 Hyperlipidemia, unspecified
CPT/HCPCS: 36415; 80048; 80061; 83735

== ENCOUNTER → 2021-09-08 | Outpatient (CLI) | payer MEDICARE ==
--- NOTE | 2021-09-08 12:23 | CT ---
EXAMINATION TYPE: CT ChestAbdPelvis w con DATE OF EXAM: 09/08/2021 COMPARISON: 03/31/2021 HISTORY: Pancreatic cancer CT DLP: 1148.4 mGycm CONTRAST: CT scan of the chest, abdomen and pelvis is performed with Oral Contrast and with IV Contrast, patien t injected with 80 mL of Isovue 300. CT Chest: LUNGS: The lungs are clear and free of infiltrate or atelectasis. No pulmonary nodule or mass is det ected. No pleural effusion or CT evidence of interstitial lung disease. MEDIASTINUM: Thoracic aorta is of normal caliber. The heart is not enlarged. No evidence for media stinal mass or adenopathy. HILAR STRUCTURES: No evidence for mass. No hilar adenopathy is appreciated. OTHER: No significant abnormality. CONTRAST CT ABDOMEN AND PELVIS FINDINGS: LIVER/GB: No calcified gallstones. No space occupying hepatic lesion. Biliary tree is of normal ca liber. PANCREAS: The pancreatic body and tail are atrophic. No distinct mass is identified. Prominence of t he pancreatic duct. SPLEEN: No splenic enlargement. No lesion seen. ADRENALS: No nodule. No thickening. KIDNEYS/BLADDER: No hydronephrosis. No nephrolithiasis. No distinct renal mass. BOWEL: Normal appendix. Normal bowel caliber. No inflammation. GENITAL ORGANS: No gross abnormality. LYMPH NODES: No greater than 1cm abdominal or pelvic lymph nodes are appreciated. AORTA: No significant abnormality. OSSEOUS STRUCTURES: No significant abnormality is seen. OTHER: No significant additional abnormality is seen. IMPRESSION: 1. The pancreatic body and tail are atrophic. No distinct mass is identified. Prominence of the panc reatic duct.
== END | disposition home or self-care (01) ==
LOC: RADCTMAIN 10:06
PROVIDERS: ATTEND Internal Medicine Hematology & Oncology
DX: C25.0 Malignant neoplasm of head of pancreas (principal)
CPT/HCPCS: 82565; 84520; 71260; 74177; J1642; Q9967

== ENCOUNTER → 2021-10-14 | Outpatient (CLI) | payer MEDICARE ==
[2021-10-14 11:20] LABS: Appearance,Urine Clear (Clear); Bilirubin,Urine Negative (Negative); Blood,Urine Negative (Negative); Color,Urine Yellow; Glucose,Urine (UA) Negative (Negative); Ketones,Urine Negative (Negative); Leukocyte Esterase,Urine Negative (Negative); Nitrite,Urine Negative (Negative); Protein,Urine Negative (Negative); Specific Gravity,Urine 1.016 (1.001-1.035); Urobilinogen,Urine <2.0 mg/dL (<2.0)
[2021-10-14 15:35] LABS: African American GFR (CKD) 56.6 (60.0-200.0); Albumin 4.1 g/dL (3.8-4.9); Albumin/Globulin Ratio 1.64 (1.60-3.17); BUN/Creat Ratio 12.21 Ratio (12.00-20.00); Basophils # (A) 0.06 X 10*3/uL (0.00-0.10); Basophils % (A) 0.7 %; Blood Urea Nitrogen 17.1 mg/dL (9.0-27.0); Calcium 9.2 mg/dL (8.7-10.3); Eosinophils # (A) 0.54 X 10*3/uL (0.04-0.35); Eosinophils % (A) 6.2 %; Ferritin 63.1 ng/mL (22.0-322.0); Globulin 2.5 g/dL (1.6-3.3); HCT 37.4 % (39.6-50.0); HGB 11.4 g/dL (13.0-17.0); Lymphocytes # (A) 1.09 X 10*3/uL (0.90-5.00); Lymphocytes % (A) 12.5 %; MCH 28.5 pg (27.0-32.0); MCHC 30.5 g/dL (32.0-37.0); MCV 93.5 fL (80.0-97.0); Mean Platelet Volume 10.7 fL (9.5-12.2); Monocytes # (A) 0.94 X 10*3/uL (0.20-1.00); Monocytes % (A) 10.8 %; Neutrophils # (A) 6.01 X 10*3/uL (1.80-7.70); Neutrophils % (A) 68.8 %; Non-African American GFR(CKD) 48.8 (60.0-200.0); Phosphorus 2.5 mg/dL (2.4-5.1); Platelet Count 297 X 10*3/uL (140-440); Potassium 3.7 mmol/L (3.5-5.5); RDW 14.3 % (11.5-14.5); Total Bilirubin 0.5 mg/dL (0.30-1.20); Total Protein 6.6 g/dL (6.2-8.2); WBC 8.73 X 10*3/uL (4.50-10.00)
[2021-10-14 15:36] LABS: % Iron Saturation 8.97 (15.00-50.00)
[2021-10-14 15:52] LABS: Folate, Serum 7.8 ng/mL (4.40-31.00)
== END | disposition home or self-care (01) ==
LOC: LABWHC1 08:39
PROVIDERS: ATTEND Internal Medicine
DX: E11.22 Type 2 diabetes mellitus with diabetic chronic kidney disease (principal); N18.31 Chronic kidney disease, stage 3a; E11.21 Type 2 diabetes mellitus with diabetic nephropathy; D64.9 Anemia, unspecified
CPT/HCPCS: 36415; 80053; 81003; 82043; 82306; 82570; 82607; 82728; 82746; 83036; 83090; 83540; 83550; 83921; 83970; 84100; 85025; 87086

== ENCOUNTER → 2022-03-18 | Outpatient (CLI) | payer MEDICARE ==
--- NOTE | 2022-03-18 14:33 | CT ---
EXAMINATION TYPE: CT abdomen pelvis w con CT DLP: 963.5 mGycm, Automated exposure control for dose reduction was used. DATE OF EXAM: 03/18/2022 12:28 PM COMPARISON: CT abdomen pelvis most recent from 09/08/2021, 03/31/2021. CLINICAL INDICATION:Male, 77 years old with history of C25.0 MALIGNANT NEOPLASM OF HEAD OF PANCREAS; pancreatic cancer TECHNIQUE: Standard CT of the abdomen and pelvis following the administration of 100 cc of Isovue 3 00 IV contrast material and oral contrast. Coronal and sagittal reformats were performed. FINDINGS: LOWER CHEST: Unremarkable ABDOMEN LIVER: Unremarkable GALLBLADDER AND BILE DUCTS: The gallbladder is surgically absent. PANCREAS: There is demonstration of atrophic appearance of the pancreatic neck body and tail with pro minent pancreatic duct measuring up to 9 mm. Similar appearance of hazy soft tissue in the joanne hepa tis region compared to immediate prior on 09/08/2021 and seen to lesser degree back in 2019. SPLEEN: Unremarkable. ADRENAL GLANDS: Unremarkable. KIDNEYS AND URETERS: No evidence of hydronephrosis or renal calculus. The ureters are unremarkable. PELVIS BLADDER: Unremarkable REPRODUCTIVE: Unremarkable. ABDOMEN & PELVIS STOMACH AND BOWEL: There is short segment of ascending colon wall circumferential thickening in the n ondistended colon which is not significantly changed dating back to 2019. Scattered diverticula are n oted throughout the colon. No evidence of bowel obstruction. PERITONEUM: No evidence of pneumoperitoneum or free fluid. VASCULATURE: No evidence of aortic aneurysm. Atherosclerosis of the arterial vasculature. MUSCULOSKELETAL: No acute osseous abnormalities. Moderate multilevel disc degeneration changes throug hout the spine. LYMPH NODES: No gross evidence for lymphadenopathy. SOFT TISSUE/ABDOMINAL WALL: Unremarkable IMPRESSION: 1. Similar appearance to the pancreas parenchyma with similar hazy soft tissue in the joanne hepatis. No new lymphadenopathy to suggest metastatic disease. 2. Circumferentially thickened appearance of the ascending colon which could represent colitis with underlying lesion not entirely excluded. If patient has not had recent colonoscopy, colonoscopy is re commended.
== END | disposition home or self-care (01) ==
LOC: RADPROMAIN 10:16
PROVIDERS: ATTEND Internal Medicine Hematology & Oncology
DX: C25.0 Malignant neoplasm of head of pancreas (principal)
CPT/HCPCS: 82565; 84520; 74177; 36415; Q9967 ×2

== ENCOUNTER → 2022-06-12 | Outpatient (CLI) | payer MEDICARE ==
[2022-06-12 15:58] LABS: Basophils # (A) 0.05 X 10*3/uL (0.00-0.10); Basophils % (A) 0.6 %; Eosinophils # (A) 0.86 X 10*3/uL (0.04-0.35); Eosinophils % (A) 10.1 %; HCT 26.9 % (39.6-50.0); HGB 7.4 g/dL (13.0-17.0); Immature Grans, Automated 0.4 %; Lymphocytes # (A) 1.01 X 10*3/uL (0.90-5.00); Lymphocytes % (A) 11.9 %; MCHC 27.5 g/dL (32.0-37.0); MCV 87.3 fL (80.0-97.0); Mean Platelet Volume 10.5 fL (9.5-12.2); Monocytes # (A) 1.06 X 10*3/uL (0.20-1.00); Monocytes % (A) 12.5 %; NRBC Per 100 WBC 0 /100 WBCS (0.0-0.0); Neutrophils % (A) 64.5 %; Platelet Count 405 X 10*3/uL (140-440); RBC 3.08 X 10*6/uL (4.40-5.60); RDW 18.7 % (11.5-14.5); WBC 8.51 X 10*3/uL (4.50-10.00)
[2022-06-12 16:45] LABS: % Iron Saturation 2.88 (15.00-50.00); Ferritin 18.9 ng/mL (22.0-322.0)
== END | disposition home or self-care (01) ==
LOC: LABWHC1 08:19
PROVIDERS: ATTEND Internal Medicine Gastroenterology
DX: D64.9 Anemia, unspecified (principal)
CPT/HCPCS: 36415; 82728; 83540; 83550; 85025

== ENCOUNTER 2022-06-16 09:18 | Day surgery (SDC) | payer MEDICARE ==
[2022-06-12 15:07] VITALS: BMI 25.8
[~2022-06-16 09:18] MED LIST: LACTATED RINGERS 1,000 ML IV SCH; LIDOCAINE 1% (10MG/ML) FOR IV START INTRADERMA PRN
[2022-06-16 09:39] VITALS: RESP 16; TEMP 97.4
[2022-06-16] MEDS ORDERED: LIDOCAINE 2% INJ 20 MG/ML (2 ML VIAL) ONE (10:18)
[2022-06-16] MEDS ORDERED: PROPOFOL 10 MG/ML 20 ML VIAL IV ONE (10:18)
--- NOTE | 2022-06-16 10:38 | P.PCN ---
Date of Procedure: 06/16/22 Procedure(s) Performed: BRIEF HISTORY: Patient is a 77-year-old, pleasant, white male scheduled for an upper endoscopy as a part of evaluation of I deficiency anemia. He was recently noted to have a hemoglobin of 7.2 g/dL and iron indices consistent with iron deficiency anemia. He has history of pancreatitis diagnosed in 2017 and is status post Whipple's surgery followed by chemoradiation and follows with Dr. Nolasco. Last colonoscopy was in now July 2021 that revealed 2 small colon polyps.. PROCEDURE PERFORMED: Esophagogastroduodenoscopy with biopsy. PREOPERATIVE DIAGNOSIS: Iron deficiency anemia. IV sedation per anesthesia. PROCEDURE: After informed consent was obtained, the patient was brought into the endoscopy unit. IV sedation was administered by Anesthesia under continuous monitoring. Initially the Olympus GIF-140 video endoscope was inserted into the mouth. Esophagus intubated without any difficulty. It was gradually advanced into the stomach and duodenum and carefully examined. The bulb and the second part of the duodenum appeared normal. The ampullary orifice was located and second part of the duodenum which had somewhat polypoid appearance and hence biopsies were done from this area. The scope at this time was withdrawn to the stomach, adequately insufflated with air, and upon careful examination, mucosa of the antrum, body, had diffuse gastritis and biopsies were done from this area. There was evidence of gastrojejunostomy noted which was widely patent and the jejunum appeared normal. On retroflexion the cardia and the fundus appeared normal. The scope was then withdrawn into the esophagus. The GE junction was located at 39 cm from the incisors. The esophagus appeared normal. There were no erosions or ulcerations seen and the patient tolerated the procedure well. IMPRESSION: 1. Evidence of gastrojejunostomy with patent anastomosis. 2. Diffuse gastritis involving the body and antrum of the stomach status post biopsy 3. Prominent ampullary orifice was a polyp status post multiple biopsies. RECOMMENDATIONS: The findings of this examination were discussed with the patient as well as his family. He was advised to follow with the biopsy results. In the meantime he will continue with iron supplements twice daily and monitor CBC on a periodic basis. He'll be seen in office in a month from now. If he continues to have persistent anemia will consider a small bowel capsule endoscopy on an outpatient basis..
[2022-06-16 11:04] VITALS: BP 160/58; PULSE 55
== END 2022-06-16 11:32 | disposition home or self-care (01) ==
LOC: ORWHC2ENDO 09:18
PROVIDERS: ATTEND Internal Medicine Gastroenterology
DX: K29.50 Unspecified chronic gastritis without bleeding (principal); K31.A0 Gastric intestinal metaplasia, unspecified; K31.7 Polyp of stomach and duodenum; I25.10 Atherosclerotic heart disease of native coronary artery without angina pectoris; D50.9 Iron deficiency anemia, unspecified; I10 Essential (primary) hypertension; G47.33 Obstructive sleep apnea (adult) (pediatric); Z98.890 Other specified postprocedural states; Z79.899 Other long term (current) drug therapy; Z79.51 Long term (current) use of inhaled steroids; Z93.4 Other artificial openings of gastrointestinal tract status; Z87.19 Personal history of other diseases of the digestive system; Z88.2 Allergy status to sulfonamides
CPT/HCPCS: 88305; 43239; J2704; J2001

== ENCOUNTER → 2022-07-06 | Day surgery (SDC) | payer MEDICARE ==
[~2022-07-06] MED LIST changes: -LACTATED RINGERS 1,000 ML IV SCH; -LIDOCAINE 1% (10MG/ML) FOR IV START INTRADERMA PRN; +SIMETHICONE 40 MG/0.6 ML DROPS 2,000 MG/30 ML BOTTLE PO ONE
[2022-07-06 06:49] VITALS: BP 162/68; PULSE 60; RESP 16; TEMP 97.1
== END ==
LOC: ORWHC2ENDO 06:06
PROVIDERS: ATTEND Internal Medicine Gastroenterology
DX: D64.9 Anemia, unspecified (principal)
CPT/HCPCS: 91110

== ENCOUNTER → 2022-08-27 | Outpatient (CLI) | payer MEDICARE ==
[2022-08-27 15:04] LABS: HCT 36.6 % (39.6-50.0); HGB 11.3 g/dL (13.0-17.0); MCH 27.1 pg (27.0-32.0); MCHC 30.9 g/dL (32.0-37.0); MCV 87.8 fL (80.0-97.0); Mean Platelet Volume 10.4 fL (9.5-12.2); NRBC Per 100 WBC 0 /100 WBCS (0.0-0.0); Platelet Count 305 X 10*3/uL (140-440); RBC 4.17 X 10*6/uL (4.40-5.60); WBC 14.31 X 10*3/uL (4.50-10.00)
[2022-08-27 16:38] LABS: Acanthocytes 2+; Anisocytosis (M) 2+; Basophils # (A) 0.06 X 10*3/uL (0.00-0.10); Basophils % (A) 0.4 %; Elliptocytes 2+; Eosinophils # (A) 1.14 X 10*3/uL (0.04-0.35); Immature Grans, Automated 0.3 %; Lymphocytes # (A) 1.11 X 10*3/uL (0.90-5.00); Lymphocytes % (A) 7.8 %; Monocytes # (A) 1.17 X 10*3/uL (0.20-1.00); Monocytes % (A) 8.2 %; Neutrophils # (A) 10.78 X 10*3/uL (1.80-7.70); Neutrophils % (A) 75.3 %
== END | disposition home or self-care (01) ==
LOC: LABWHC1 08:16
PROVIDERS: ATTEND Internal Medicine
DX: D64.9 Anemia, unspecified (principal)
CPT/HCPCS: 36415; 85025

== ENCOUNTER → 2022-09-30 | Outpatient (CLI) | payer MEDICARE ==
--- NOTE | 2022-10-02 09:21 | CT ---
EXAMINATION TYPE: CT ChestAbdPelvis wo con DATE OF EXAM: 09/30/2022 COMPARISON: 03/18/2022, 09/08/2021 HISTORY: 77-year-old male Malignant neoplasm of head of pancreas. TECHNIQUE: Contiguous axial scanning of the chest, abdomen, and pelvis without IV contrast. Coronal a nd sagittal reconstructions performed. Technologist notes: Oral contrast only due to labs CT DLP: 615.50 mGycm Automated exposure control for dose reduction was used. FINDINGS: CHEST: The heart is upper limits of normal in size without pericardial effusion. Three-vessel coronary arter y calcifications are present in remarkable for coronary artery disease. Aneurysm ascending aorta at 4.4 cm is unchanged. Mild atherosclerotic arch calcifications with conven tional arch vessel branching anatomy. Large caliber to the main right and the pulmonary arteries measuring up to 3.6 cm suggesting underlyi ng pulmonary hypertension. No thoracic lymphadenopathy by CT size criteria. Strandy areas of atelectasis in the lower lungs. No consolidation or pleural effusion. Minimal emphys ematous change and mild bronchial wall thickening compatible with underlying COPD. ABDOMEN: Noncontrast appearance of the liver, adrenal glands, right kidney, and spleen show no gross abnormali ty. Duplex left renal collecting system redemonstrated. Marked atrophy of nearly the entire pancreas except for the inferior pancreatic head is redemonstrate d. Corresponding dilatation of the main pancreatic duct is also similar. The configuration to densiti es within the jean hepatis including axial image 59, 60, 61, and 62 is all unchanged from the patien t's prior 2 studies. No suspicious mass is clearly identified.. Query anterior distal gastric body wall gastrojejunostomy, axial image 56. No dilated small bowel, free fluid, or free air. No mesenteric or retroperitoneal lymphadenopathy aliya ntified. 9 mm and smaller aortocaval lymph nodes in the retroperitoneum are unchanged. 8 mm lymph nod e inferior to the pancreatic head is unchanged. Oral contrast has just entered the cecum. There is scattered moderate stool burden. Left-sided coloni c diverticulosis greatest in the sigmoid colon. Mildly redundant sigmoid colon. No pericolonic inflam matory change. Slight increased hazy density throughout the intra-abdominal fat. PELVIS: Some mild presacral edema noted. Bladder is urine distended. Prostate gland is 4.4 cm wide. No abnorm al fluid collection in the pelvis or pelvic lymphadenopathy. Pelvic phlebolith. BONES: Scattered periarticular probable bone islands about the hips. Advanced degenerative disc disease thro ughout the lumbar spine and mild to moderate throughout the thoracic spine. Degenerative change juan omanubrial joint. No osseous destructive process identified. IMPRESSION: 1. LIMITED DUE TO LACK OF IV CONTRAST BUT WITH OVERALL STABLE CONFIGURATION TO DENSITIES IN THE JEAN HEPATIS. NO ENLARGING DENSITY TO SUGGEST A DEVELOPING/RECURRENT MASS. SIMILAR ATROPHY TO THE BODY AN D TAIL OF THE PANCREAS. 2. COMPARED TO 03/18/2022, THERE IS INCREASED HAZINESS THROUGHOUT THE INTRA-ABDOMINAL FAT. THIS COULD R EFLECT SOME THIRD SPACING. 3. QUERY THE PRESENCE OF A GASTROJEJUNOSTOMY ALONG THE ANTERIOR DISTAL GASTRIC BODY WALL. 4. INCIDENTAL: STABLE 4.4 CM ASCENDING AORTIC ANEURYSM AND PULMONARY ARTERY HYPERTENSION. COPD WITH M INIMAL EMPHYSEMA. LEFT-SIDED COLONIC DIVERTICULOSIS. DUPLEX LEFT RENAL COLLECTING SYSTEM.
== END | disposition home or self-care (01) ==
LOC: RADCTMAIN 11:27
PROVIDERS: ATTEND Internal Medicine Hematology & Oncology
DX: C25.0 Malignant neoplasm of head of pancreas (principal); J43.9 Emphysema, unspecified; K57.30 Diverticulosis of large intestine without perforation or abscess without bleeding; D64.9 Anemia, unspecified; I10 Essential (primary) hypertension; D50.9 Iron deficiency anemia, unspecified; K86.89 Other specified diseases of pancreas
CPT/HCPCS: 82565; 84520; 71250; 74176; 36415; Q9967

== ENCOUNTER → 2022-11-27 | Outpatient (CLI) | payer MEDICARE ==
[2022-11-27 17:59] LABS: Appearance,Urine Clear (Clear); Bilirubin,Urine Negative (Negative); Blood,Urine Negative (Negative); Color,Urine Yellow (Yellow); Ketones,Urine Negative (Negative); Nitrite,Urine Negative (Negative); Specific Gravity,Urine 1.017 (1.001-1.030); Urobilinogen,Urine 0.2 (0.2,1.0)
[2022-11-27 18:05] LABS: Bacteria,Urine None Seen /HPF (None Seen)
[2022-11-27 18:40] LABS: Basophils # (A) 0.07 X 10*3/uL (0.00-0.10); Basophils % (A) 0.8 %; Eosinophils # (A) 0.47 X 10*3/uL (0.04-0.35); Eosinophils % (A) 5.3 %; HCT 34.5 % (39.6-50.0); HGB 10.7 g/dL (13.0-17.0); Immature Grans, Automated 1.2 %; Lymphocytes # (A) 1.09 X 10*3/uL (0.90-5.00); Lymphocytes % (A) 12.3 %; MCH 29.2 pg (27.0-32.0); MCV 94.3 fL (80.0-97.0); Mean Platelet Volume 9.9 fL (9.5-12.2); Monocytes # (A) 1.04 X 10*3/uL (0.20-1.00); Monocytes % (A) 11.7 %; NRBC Per 100 WBC 0 /100 WBCS (0.0-0.0); Neutrophils % (A) 68.7 %; Platelet Count 345 X 10*3/uL (140-440); RBC 3.66 X 10*6/uL (4.40-5.60); RDW 15.4 % (11.5-14.5); WBC 8.88 X 10*3/uL (4.50-10.00)
[2022-11-27 19:13] LABS: African American GFR (CKD) 41.5 (60.0-200.0); Anion Gap 13.8 mmol/L (10.00-18.00); BUN/Creat Ratio 16.56 Ratio (12.00-20.00); Blood Urea Nitrogen 29.8 mg/dL (9.0-27.0); Calcium 9.3 mg/dL (8.7-10.3); Non-African American GFR(CKD) 35.8 (60.0-200.0); Potassium 4.1 mmol/L (3.5-5.5); Uric Acid 6.4 mg/dL (3.7-8.7)
== END | disposition home or self-care (01) ==
LOC: LABWHC1 11:10
DX: I12.9 Hypertensive chronic kidney disease with stage 1 through stage 4 chronic kidney disease, or unspecified chronic kidney disease (principal); N18.32 Chronic kidney disease, stage 3b; D63.1 Anemia in chronic kidney disease; E79.0 Hyperuricemia without signs of inflammatory arthritis and tophaceous disease
CPT/HCPCS: 36415; 80048; 81001; 84550; 85025

== ENCOUNTER → 2023-07-07 | Outpatient (CLI) | payer MEDICARE ==
[2023-07-07 15:26] LABS: BUN/Creat Ratio 9.89 Ratio (12.00-20.00); Blood Urea Nitrogen 8.9 mg/dL (9.0-27.0); Carbon Dioxide 15.6 mmol/L (21.6-31.8); Chloride 108 mmol/L (96-109); Glucose 204 mg/dL (70-110); Potassium 4.3 mmol/L (3.5-5.5); Sodium 140 mmol/L (135-145)
[2023-07-07 16:38] LABS: Appearance,Urine Clear (Clear); Bilirubin,Urine Negative (Negative); Blood,Urine Negative (Negative); Color,Urine Yellow (Yellow); Ketones,Urine Negative (Negative); Nitrite,Urine Negative (Negative); PH, Urine 5.5; Specific Gravity,Urine 1.019 (1.001-1.030)
== END | disposition home or self-care (01) ==
LOC: LABWHC1 10:19
PROVIDERS: ATTEND Internal Medicine
DX: R79.89 Other specified abnormal findings of blood chemistry (principal)
CPT/HCPCS: 36415; 80048; 81003

== ENCOUNTER → 2023-08-31 | Outpatient (CLI) | payer MEDICARE | END | disposition home or self-care (01) | LOC: LABWHC1 10:56 | PROVIDERS: ATTEND Internal Medicine | DX: E11.9 Type 2 diabetes mellitus without complications (principal) | CPT/HCPCS: 36415; 83036 ==

== ENCOUNTER → 2023-09-20 | Outpatient (CLI) | payer MEDICARE ==
--- NOTE | 2023-09-24 10:11 | CT ---
EXAMINATION TYPE: CT ChestAbdPelvis wo con CT DLP: 740 mGycm, Automated exposure control for dose reduction was used. 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 Oral contrast was given. Two-dimensional coronal and sagittal reconstructions were obtained. Contrast used: mL of , Oral contrast used: with Oral Contrast FINDINGS: CHEST: Examination limited by lack of IV contrast. LUNGS/ PLEURA: Stable. No sizable nodule, mass, or airspace consolidation. No effusion or pneumothora x. AIRWAY: Central airways are patent. LOWER NECK: No significant findings. MEDIASTINUM: Appear stable without evidence of enlarged nodes.. HEART: Mild cardiomegaly. Poor visualization of the interventricular septum can be seen with anemia. Moderate coronary artery calcification and/or stents. No appreciable pericardial effusion. VASCULATURE: Moderate atherosclerotic calcifications of the aorta and branches, to include the aorti c valve. Ascending aorta is 4.4 CM, descending is 3 CM. Aorta is considered aneurysmal in its ascend ing segment, stable compared to prior. Pulmonary trunk measures 3.9 CM, and the right main pulmonary artery is 3.6 CM. The pulmonary trunk is enlarged (>3cm), this can be seen with pulmonary hypertensi on. Vessels are otherwise not further assessed without IV contrast. SOFT TISSUES/LYMPH NODES: Unremarkable soft tissues. No axillary adenopathy. MUSCULOSKELETAL: No acute osseous abnormalities. Moderate disc degeneration changes are present throu ghout the thoracolumbar spine. OTHER: No other significant finding. ABDOMEN PELVIS: ABDOMEN LIVER: Stable without evidence of mass by unenhanced exam. GALLBLADDER AND BILE DUCTS: Status post cholecystectomy. No evidence of significant biliary dilatatio n. PANCREAS: Limited without contrast but the pancreas has a grossly stable appearance with atrophy of t he body and tail again noted. SPLEEN: Unremarkable. ADRENAL GLANDS: Unremarkable.. KIDNEYS AND URETERS: No evidence of hydronephrosis, renal or ureteral calculus. PELVIS BLADDER: Unremarkable REPRODUCTIVE: Prostate appears mildly enlarged measuring 4.5 cm transverse. ABDOMEN & PELVIS STOMACH AND BOWEL: Contrast within nondistended stomach and small bowel loops status post gastrojejun ostomy without evidence of obstruction. Thickened appearance throughout the gastric wall could be at least in part related to underdistention. Appendix is not seen with certainty but there is no inflamm atory process seen in the pericecal region. There is moderate stool throughout the colon. A few diver ticula are suggested without signs of diverticulitis. PERITONEUM/RETROPERITONEUM: No evidence of pneumoperitoneum or free fluid. Grossly stable postoperative appearance of the right upper quadrant with small soft tissue densities in the region of the joanne hepatis likely reflecting stable lymph nodes. No new or enlarging lesion c an be seen. VASCULATURE: Moderate atherosclerotic calcifications are present throughout the abdominal aorta and i ts branches. No evidence of AAA. MUSCULOSKELETAL: No acute osseous abnormalities. Moderate disc degeneration changes are present throu ghout the thoracolumbar spine. LYMPH NODES: No evidence of lymphadenopathy. SOFT TISSUES/ABDOMINAL WALL: Mild broad-based laxity between the abdominal rectus muscles without def inite herniated bowel. OTHER: No other significant finding. IMPRESSION: 1. Limited unenhanced study, with a grossly stable appearance described above. 2. No significant change to indicate progressive metastatic disease. 3. Stable 4.4 cm ascending TAA.
== END | disposition home or self-care (01) ==
LOC: RADCTMAIN 12:04
PROVIDERS: ATTEND Internal Medicine Hematology & Oncology
DX: I71.21 Aneurysm of the ascending aorta, without rupture (principal); C25.0 Malignant neoplasm of head of pancreas; D50.9 Iron deficiency anemia, unspecified; I10 Essential (primary) hypertension; Z71.3 Dietary counseling and surveillance
CPT/HCPCS: 71250; 74176

== ENCOUNTER 2023-10-16 08:12 | Inpatient (IN) | payer MEDICARE ==
[2023-10-16 08:59] LABS: Basophils # (A) 0.1 k/uL (0-0.2); Basophils % (A) 1 %; Eosinophils # (A) 0.5 k/uL (0-0.7); Eosinophils % (A) 4 %; HCT 41.4 % (39.0-53.0); HGB 13.7 gm/dL (13.0-17.5); Lymphocytes # (A) 1.2 k/uL (1.0-4.8); Lymphocytes % (A) 11 %; MCH 31.4 pg (25.0-35.0); MCHC 33.1 g/dL (31.0-37.0); MCV 94.7 fL (80.0-100.0); Mean Platelet Volume 7.6; Monocytes # (A) 0.8 k/uL (0-1.0); Monocytes % (A) 7 %; Neutrophils # (A) 8.5 k/uL (1.3-7.7); Neutrophils % (A) 76 %; Platelet Count 313 k/uL (150-450); RBC 4.37 m/uL (4.30-5.90); RDW 13.6 % (11.5-15.5); WBC 11.2 k/uL (3.8-10.6)
--- NOTE | 2023-10-16 08:59 | XR ---
EXAMINATION TYPE: XR chest 2V DATE OF EXAM: 10/16/2023 COMPARISON: 01/19/19 HISTORY: Shortness of breath TECHNIQUE: Frontal and lateral views of the chest are obtained. FINDINGS: Scattered senescent parenchymal changes noted. Hyperinflation compatible with COPD. No evidence for infiltrate. No evidence for atelectasis. Heart size is stable. Mediastinal structures are stable and grossly unremarkable. No evidence for hilar prominence. Degenerative changes dorsal spine. IMPRESSION: 1. No evidence for acute pulmonary disease.
--- NOTE | 2023-10-16 09:01 | ED ---
General Adult HPI - General Chief complaint: Chest Pain Stated complaint: Chest pain Time Seen by Provider: 10/16/23 08:25 Source: patient, RN notes reviewed, old records reviewed Mode of arrival: ambulatory Limitations: no limitations - History of Present Illness Initial comments: This is a 78-year-old male who presents to the emergency department has a past medical history significant for coronary artery disease with a stent. Patient states he has a high cholesterol as well. Patient comes in today because he started having intermittent chest pain yesterday. Patient states pain radiates up into his shoulder is sharp at times with numbness prolonged pressure for a couple of minutes. Patient states he is mildly short of breath but denies any diaphoretic episode. Patient has any nausea vomiting. Patient has any fever chills or cough. Patient denies any abdominal pain currently patient has no chest pain - Related Data Home Medications Medication Instructions Recorded Confirmed Aspirin [Adult Low Dose Aspirin EC] 81 mg PO DAILY 06/12/22 07/06/22 Atorvastatin [Lipitor] 40 mg PO DAILY 06/12/22 07/06/22 Ferrous Sulfate [Feosol] 325 mg PO DAILY 06/12/22 07/06/22 Metoprolol Succinate [Toprol XL] 50 mg PO DAILY 06/12/22 07/06/22 Rescue Inhaler 1 dose INHALATION DIRECTED PRN 06/12/22 07/06/22 amLODIPine [Norvasc] 10 mg PO DAILY 06/12/22 07/06/22 hydrALAZINE HCL [Apresoline] 50 mg PO TID 06/12/22 07/06/22 Allergies Allergy/AdvReac Type Severity Reaction Status Date / Time glipizide Allergy Rash/Hives Verified 10/16/23 08:24 Review of Systems ROS Statement: Those systems with pertinent positive or pertinent negative responses have been documented in the HPI. ROS Other: All systems not noted in ROS Statement are negative. Past Medical History Past Medical History: Cancer, Hyperlipidemia, Hypertension, Myocardial Infarction (CA) Additional Past Medical History / Comment(s): pancreatic CA, anemia ( no sx at this time per pt), allergy induced asthma, generalized aches and pains Last Myocardial Infarction Date:: 08/2018 History of Any Multi-Drug Resistant Organisms: None Reported Past Surgical History: Cholecystectomy, Heart Catheterization With Stent, Orthopedic Surgery Additional Past Surgical History / Comment(s): Baron knees replaced, abd sx 4/19- scoped Past Anesthesia/Blood Transfusion Reactions: No Reported Reaction Date of Last Stent Placement:: 08/2018 Past Psychological History: No Psychological Hx Reported Smoking Status: Former smoker Past Alcohol Use History: Occasional Past Drug Use History: None Reported - Past Family History Father Additional Family Medical History / Comment(s): Emphysema. Mother Family Medical History: No Reported History General Exam - General Exam Comments Initial Comments: GENERAL: Patient is well-developed and well-nourished. Patient is nontoxic and well- hydrated and is in mild distress. ENT: Neck is soft and supple. No significant lymphadenopathy is noted. Oropharynx is clear. Moist mucous membranes. Neck has full range of motion without eliciting any pain. EYES: The sclera were anicteric and conjunctiva were pink and moist. Extraocular movements were intact and pupils were equal round and reactive to light. Ey elids were unremarkable. PULMONARY: Unlabored respirations. Good breath sounds bilaterally. No audible rales rhonchi or wheezing was noted. CARDIOVASCULAR: There is a regular rate and rhythm without any murmurs gallops or rubs. ABDOMEN: Soft and nontender with normal bowel sounds. SKIN: Skin is clear with no lesions or rashes and otherwise unremarkable. NEUROLOGIC: Patient is alert and oriented x3. Cranial nerves II through XII are grossly intact. Motor and sensory are also intact. Normal speech, volume and content. Symmetrical smile. MUSCULOSKELETAL: Normal extremities with adequate strength and full range of motion. LYMPHATICS: No significant lymphadenopathy is noted PSYCHIATRIC: Normal psychiatric evaluation. Limitations: no limitations Course Vital Signs 10/16/23 08:22 Temperature 98 F Pulse Rate 63 Respiratory 18 Rate Blood Pressure 143/76 O2 Sat by Pulse 97 Oximetry Medical Decision Making - Medical Decision Making EKG is interpreted by myself. EKG shows a sinus bradycardia 59 bpm NH of 207 QRS of 49 QT interval is 454 QTc is 453. Patient's EKG shows no ST segment ovation or depression. Patient does have a right bundle branch block. Was pt. sent in by a medical professional or institution (, PA, [employer], urgent care, hospital, or custodial...) When possible be specific @ -No Did you speak to anyone other than the patient for history (EMS, parent, family, police, friend...)? What history was obtained from this source @ -No Did you review nursing and triage notes (agree or disagree)? Why? @ -I reviewed and agree with nursing and triage notes Were old charts reviewed (outside hosp., previous admission, EMS record, old EKG, old radiological studies, urgent care reports/EKG's, custodial records)? Report findings @ -I have reviewed previous lab work and previous charts on this patient Differential Diagnosis (chest pain, altered mental status, abdominal pain women, abdominal pain men, vaginal bleeding, weakness, fever, dyspnea, syncope, headache, dizziness, GI bleed, back pain, seizure, CVA, palpatations, mental health, musculoskeletal)? @ -Differential Chest Pain: Stable Angina, Unstable Angina, STEMI, NSTEMI Aortic Dissection, Pneumothorax, Musculoskeletal, Esophageal Spasm GERD, Cholecystitis, Pancreatitis, Zoster, this is not meant to be an all-inclusive list. EKG interpreted by me (3pts min.). @ -As above X-rays interpreted by me (1pt min.). @ -Chest x-ray shows no acute abnormality CT interpreted by me (1pt min.). @ -None done U/S interpreted by me (1pt. min.). @ -None done What testing was considered but not performed or refused? (CT, X-rays, U/S, labs)? Why? @ -None What meds were considered but not given or refused? Why? @ -None Did you discuss the management of the patient with other professionals (professionals i.e. , PA, [employer], lab, RT, psych nurse, high school social science teacher, patrol driver, teacher, community arts officer, piano case maker)? Give summary @ -I spoke with [facility] and they agreed to meet the patient. I consult cardiology Was smoking cessation discussed for >3mins.? @ -No Was critical care preformed (if so, how long)? @ -No Were there social determinants of health that impacted care today? How? (Homelessness, low income, unemployed, alcoholism, drug addiction, transportation, low edu. Level, literacy, decrease access to med. care, senior living, rehab)? @ -No Was there de-escalation of care discussed even if they declined (Discuss DNR or withdrawal of care, Hospice)? DNR status @ -No What co-morbidities impacted this encounter? (DM, HTN, Smoking, COPD, CAD, Cancer, CVA, ARF, Chemo, Hep., AIDS, mental health diagnosis, sleep apnea, morbid obesity)? @ -None Was patient admitted / discharged? Hospital course, mention meds given and route, prescriptions, significant lab abnormalities, going to OR and other pertinent info. @ -Patient had intermittent chest pain in the emergency department it was a heaviness but not typical of his heart attack pain because that was in his back. Patient has multiple risk factors and that in combination with this interm ittent chest pain for a day put him at a higher risk such he needed to be admitted I spoke with the condition hospitalist agreed admit the patient to the patient about admitting orders Undiagnosed new problem with uncertain prognosis? @ -No Drug Therapy requiring intensive monitoring for toxicity (Heparin, Nitro, Insulin, Cardizem)? @ -No Were any procedures done? @ -No Diagnosis/symptom? @ -Chest pain Acute, or Chronic, or Acute on Chronic? @ -Acute Uncomplicated (without systemic symptoms) or Complicated (systemic symptoms)? @ -Complicated Side effects of treatment? @ -No Exacerbation, Progression, or Severe Exacerbation? @ -No Poses a threat to life or bodily function? How? (Chest pain, USA, CA, pneumonia, PE, COPD, DKA, ARF, appy, cholecystitis, CVA, Diverticulitis, Homicidal, Suicidal, threat to staff... and all critical care pts) @ -Yes this could lead to an CA and endorgan dysfunction - Lab Data Result diagrams: 10/16/23 08:38 10/16/23 08:38 Lab Results 10/16/23 10/16/23 10/16/23 Range/Units 08:38 08:38 08:38 WBC 11.2 H (3.8-10.6) k/uL RBC 4.37 (4.30-5.90) m/uL Hgb 13.7 (13.0-17.5) gm/dL Hct 41.4 (39.0-53.0) % MCV 94.7 (80.0-100.0) fL MCH 31.4 (25.0-35.0) pg MCHC 33.1 (31.0-37.0) g/dL RDW 13.6 (11.5-15.5) % Plt Count 313 (150-450) k/uL MPV 7.6 Neutrophils % 76 % Lymphocytes % 11 % Monocytes % 7 % Eosinophils % 4 % Basophils % 1 % Neutrophils # 8.5 H (1.3-7.7) k/uL Lymphocytes # 1.2 (1.0-4.8) k/uL Monocytes # 0.8 (0-1.0) k/uL Eosinophils # 0.5 (0-0.7) k/uL Basophils # 0.1 (0-0.2) k/uL PT 10.4 (10.0-12.5) sec INR 0.9 (<1.2) APTT 30.9 H (22.0-30.0) sec Sodium 139 (137-145) mmol/L Potassium 3.9 (3.5-5.1) mmol/L Chloride 110 H (98-107) mmol/L Carbon Dioxide 16 L (22-30) mmol/L Anion Gap 13 mmol/L BUN 25 H (9-20) mg/dL Creatinine 1.62 H (0.66-1.25) mg/dL Est GFR (CKD-EPI)AfAm 47 (>60 ml/min/1.73 sqM) Est GFR (CKD-EPI)NonAf 40 (>60 ml/min/1.73 sqM) Glucose 191 H (74-99) mg/dL Calcium 9.1 (8.4-10.2) mg/dL Magnesium 1.6 (1.6-2.3) mg/dL Total Bilirubin 0.5 (0.2-1.3) mg/dL AST 29 (17-59) U/L ALT 29 (4-49) U/L Alkaline Phosphatase 101 (38-126) U/L Troponin I (0.000-0.034) ng/mL Total Protein 6.4 (6.3-8.2) g/dL Albumin 3.8 (3.5-5.0) g/dL 10/16/23 Range/Units 08:38 WBC (3.8-10.6) k/uL RBC (4.30-5.90) m/uL Hgb (13.0-17.5) gm/dL Hct (39.0-53.0) % MCV (80.0-100.0) fL MCH (25.0-35.0) pg MCHC (31.0-37.0) g/dL RDW (11.5-15.5) % Plt Count (150-450) k/uL MPV Neutrophils % % Lymphocytes % % Monocytes % % Eosinophils % % Basophils % % Neutrophils # (1.3-7.7) k/uL Lymphocytes # (1.0-4.8) k/uL Monocytes # (0-1.0) k/uL Eosinophils # (0-0.7) k/uL Basophils # (0-0.2) k/uL PT (10.0-12.5) sec INR (<1.2) APTT (22.0-30.0) sec Sodium (137-145) mmol/L Potassium (3.5-5.1) mmol/L Chloride (98-107) mmol/L Carbon Dioxide (22-30) mmol/L Anion Gap mmol/L BUN (9-20) mg/dL Creatinine (0.66-1.25) mg/dL Est GFR (CKD-EPI)AfAm (>60 ml/min/1.73 sqM) Est GFR (CKD-EPI)NonAf (>60 ml/min/1.73 sqM) Glucose (74-99) mg/dL Calcium (8.4-10.2) mg/dL Magnesium (1.6-2.3) mg/dL Total Bilirubin (0.2-1.3) mg/dL AST (17-59) U/L ALT (4-49) U/L Alkaline Phosphatase (38-126) U/L Troponin I <0.012 (0.000-0.034) ng/mL Total Protein (6.3-8.2) g/dL Albumin (3.5-5.0) g/dL Disposition Clinical Impression: Chest pain Disposition: ADMITTED IP TO THIS HOSP Referrals: Quique Arthur MD [Primary Care Provider] - 1-2 days Time of Disposition: 09:59
[2023-10-16] MEDS: ASPIRIN 81 MG PO STA (09:06)
[2023-10-16 09:14] LABS: INR 0.9 (<1.2); Partial Thromboplastin Time 30.9 sec (22.0-30.0); Prothrombin Time 10.4 sec (10.0-12.5)
[2023-10-16 09:25] LABS: ALT 29 U/L (4-49); AST 29 U/L (17-59); African American GFR (CKD) 47 (>60 ml/min/1.73 sqM); Albumin 3.8 g/dL (3.5-5.0); Alkaline Phosphatase 101 U/L (38-126); Anion Gap 13 mmol/L; Blood Urea Nitrogen 25 mg/dL (9-20); Calcium 9.1 mg/dL (8.4-10.2); Carbon Dioxide 16 mmol/L (22-30); Chloride 110 mmol/L (98-107); Glucose 191 mg/dL (74-99); Magnesium 1.6 mg/dL (1.6-2.3); Non-African American GFR(CKD) 40 (>60 ml/min/1.73 sqM); Potassium 3.9 mmol/L (3.5-5.1); Sodium 139 mmol/L (137-145); Total Bilirubin 0.5 mg/dL (0.2-1.3); Total Protein 6.4 g/dL (6.3-8.2)
[2023-10-16] MEDS ORDERED: NITROGLYCERIN SL TABS 0.4 MG TAB SUBLINGUAL PRN (10:08)
[2023-10-16] MEDS ORDERED: ONDANSETRON 4 MG/2 ML VIAL IVP PRN (11:10)
[2023-10-16] MEDS ORDERED: ACETAMINOPHEN TAB 325 MG TAB PO PRN (11:10)
[2023-10-16] MEDS ORDERED: NALOXONE 0.4 MG/ML 1 ML VIAL IV PRN (11:10)
[2023-10-16] MEDS: SODIUM CHLORIDE 0.9% 1,000 ML IV SCH (11:32)
[2023-10-16] MEDS: NITROGLYCERIN OINT 1 INCH/GM PACKET TOPICAL SCH (11:32)
--- NOTE | 2023-10-16 14:46 | P.HPIM ---
History of Present Illness H&P Date: 10/16/23 Chief Complaint: Chest pain * 78-year-old patient with past medical history significant for coronary artery disease history of PCI, dyslipidemia, history of pancreatic cancer, history of hypertension presents to the emergency department with complaints of chest pain. Patient states yesterday pain radiated to the shoulder. This was associated with numbness in the arm. Patient stated he was associated with nausea, and vomiting however denies diaphoresis, denies chills or cough * Workup initiated in ER included chest x-ray that was not * EKG obtained in ER showed sinus bradycardia, * Blood workup to include WBC 11.2 hemoglobin 13.7 platelet count of 313 INR of 0.9 * Chemistry sodium 139 potassium 3.9 carbon dioxide 16 BUN 25 creatinine 1.62 glucose 191 troponin within normal * Patient to be admitted to medical floor with consultations from cardiology REVIEW OF SYSTEMS: Chest pain CONSTITUTIONAL: No fever, no malaise, no fatigue. HEENT: No recent visual problems or hearing problems. Denied any sore throat. CARDIOVASCULAR: Chest pain PULMONARY: No shortness of breath, no cough, no hemoptysis. GASTROINTESTINAL: No diarrhea, no nausea, no vomiting, no abdominal pain. NEUROLOGICAL: No headaches, no weakness, no numbness. HEMATOLOGICAL: Denies any bleeding or petechiae. GENITOURINARY: Denies any burning micturition, frequency, or urgency. MUSCULOSKELETAL/RHEUMATOLOGICAL: Denies any joint pain, swelling, or any muscle pain. ENDOCRINE: Denies any polyuria or polydipsia. PHYSICAL EXAMINATION: GENERAL: The patient is alert and oriented x3, not in any acute distress. Well developed, well nourished. HEENT: Pupils are round and equally reacting to light. EOMI. No scleral icterus. No conjunctival pallor. Normocephalic, atraumatic. No pharyngeal erythema. No thyromegaly. CARDIOVASCULAR: S1 and S2 present. No murmurs, rubs, or gallops. PULMONARY: Chest is clear to auscultation, no wheezing or crackles. ABDOMEN: Soft, nontender, nondistended, normoactive bowel sounds. No palpable organomegaly. MUSCULOSKELETAL: No joint swelling or deformity. EXTREMITIES: No cyanosis, clubbing, or pedal edema. NEUROLOGICAL: Gross neurological examination did not reveal any focal deficits. SKIN: No rashes. Past Medical History Past Medical History: Cancer, Hyperlipidemia, Hypertension, Myocardial Infarction ([place]) Additional Past Medical History / Comment(s): pancreatic CA, anemia ( no sx at this time per pt), allergy induced asthma, generalized aches and pains Last Myocardial Infarction Date:: 08/2018 History of Any Multi-Drug Resistant Organisms: None Reported Past Surgical History: Cholecystectomy, Heart Catheterization With Stent, Orthopedic Surgery Additional Past Surgical History / Comment(s): Baron knees replaced, abd sx 12/30- scoped Past Anesthesia/Blood Transfusion Reactions: No Reported Reaction Date of Last Stent Placement:: 08/2018 Past Psychological History: No Psychological Hx Reported Smoking Status: Former smoker Past Alcohol Use History: Occasional Past Drug Use History: None Reported - Past Family History Father Additional Family Medical History / Comment(s): Emphysema. Mother Family Medical History: No Reported History Medications and Allergies Home Medications Medication Instructions Recorded Confirmed Type Aspirin [Adult Low Dose Aspirin EC] 81 mg PO DAILY 06/12/22 10/16/23 History Atorvastatin [Lipitor] 40 mg PO DAILY 06/12/22 10/16/23 History Ferrous Sulfate [Feosol] 325 mg PO DAILY 06/12/22 10/16/23 History Metoprolol Succinate [Toprol XL] 50 mg PO DAILY 06/12/22 10/16/23 History amLODIPine [Norvasc] 10 mg PO DAILY 06/12/22 10/16/23 History hydrALAZINE HCL [Apresoline] 50 mg PO TID 06/12/22 10/16/23 History Cholecalciferol [Vitamin D3 (25 25 mcg PO DAILY 10/16/23 10/16/23 History Mcg = 1000 Iu)] Dupilumab [Dupixent Pen] 300 mg SQ Q14D 10/16/23 10/16/23 History Omeprazole 20 mg PO DAILY 10/16/23 10/16/23 History allopurinoL [Zyloprim] 100 mg PO DAILY 10/16/23 10/16/23 History Allergies Allergy/AdvReac Type Severity Reaction Status Date / Time glipizide Allergy Rash/Hives Verified 10/16/23 13:41 Physical Exam Vitals: Vital Signs Temp Pulse Resp BP Pulse Ox 10/16/23 09:59 53 L 18 148/70 97 10/16/23 08:22 98 F 63 18 143/76 97 Intake and Output 10/15/23 10/16/23 10/16/23 22:59 06:59 14:59 Other: Weight 79.379 kg Results CBC & Chem 7: 10/16/23 08:38 10/16/23 08:38 Labs: Abnormal Lab Results - Last 24 Hours (Table) 10/16/23 10/16/23 10/16/23 Range/Units 08:38 08:38 08:38 WBC 11.2 H (3.8-10.6) k/uL Neutrophils # 8.5 H (1.3-7.7) k/uL APTT 30.9 H (22.0-30.0) sec Chloride 110 H (98-107) mmol/L Carbon Dioxide 16 L (22-30) mmol/L BUN 25 H (9-20) mg/dL Creatinine 1.62 H (0.66-1.25) mg/dL Glucose 191 H (74-99) mg/dL Assessment and Plan Assessment: Assessment and plan * Chest pain rule out acute coronary syndrome * History of coronary artery disease * History of pancreatic cancer * Hypertension * Iron deficiency anemia history * Dyslipidemia * In regards to chest pain, serial troponins requested, cardiology consult * In regards to history of coronary artery disease continue medical management including aspirin, Lipitor, metoprolol * Regards to history of hypertension continue home regimen * Status full code Time with Patient: Greater than 30
[2023-10-16] MEDS: hydrALAZINE HCL 50 MG TAB PO SCH (15:28)
[2023-10-16] MEDS: PANTOPRAZOLE 40 MG TABLET PO SCH (15:28)
[2023-10-16] MEDS: ATORVASTATIN 40 MG TAB PO SCH (15:28)
[2023-10-16] MEDS: FERROUS SULFATE 325 MG TAB PO SCH (15:30)
[2023-10-16] MEDS: METOPROLOL SUCCINATE (ER) 50 MG TAB.ER.24H PO SCH (15:30)
[2023-10-16] MEDS: amLODIPine 10 MG TAB PO SCH (15:30)
[2023-10-17] MEDS: ASPIRIN 325 MG TAB PO SCH (08:59)
[2023-10-17] MEDS: allopurinoL 100 MG TAB PO SCH (08:59)
[2023-10-17] MEDS: CHOLECALCIFEROL 25 MCG (1000 IU) TABLET PO SCH (08:59)
[2023-10-17] MEDS: ENOXAPARIN 40 MG/0.4 ML SYRINGE SQ SCH (09:00)
[2023-10-17 10:23] LABS: BUN/Creat Ratio 13.75 Ratio (12.00-20.00); Carbon Dioxide 19.8 mmol/L (21.6-31.8); Chloride 111 mmol/L (96-109); Chol/HDL Ratio 2.62 Ratio; Glucose 111 mg/dL (70-110); LDL Cholesterol,Calculated 8.4 mg/dL (0.0-131.0); Potassium 4.1 mmol/L (3.5-5.5); Sodium 141 mmol/L (135-145)
[2023-10-17 12:01] LABS: Basophils # (A) 0.05 X 10*3/uL (0.00-0.10); Basophils % (A) 0.5 %; Eosinophils # (A) 0.45 X 10*3/uL (0.04-0.35); Eosinophils % (A) 4.2 %; HCT 36.3 % (39.6-50.0); HGB 11.8 g/dL (13.0-17.0); Lymphocytes # (A) 1.35 X 10*3/uL (0.90-5.00); Lymphocytes % (A) 12.5 %; MCH 30.7 pg (27.0-32.0); MCHC 32.5 g/dL (32.0-37.0); MCV 94.5 FL (80.0-97.0); Mean Platelet Volume 10.6 FL (9.5-12.2); Monocytes # (A) 1.14 X 10*3/uL (0.20-1.00); Monocytes % (A) 10.6 %; NRBC Per 100 WBC 0 X 10*3/uL (0.00-0.01); Neutrophils # (A) 7.65 X 10*3/uL (1.80-7.70); Neutrophils % (A) 70.9 %; Platelet Count 276 X 10*3/uL (140-440); RBC 3.84 X 10*6/uL (4.40-5.60); RDW 13.7 % (11.5-14.5); WBC 10.78 X 10*3/uL (4.50-10.00)
--- NOTE | 2023-10-17 12:46 | P.PN ---
Subjective Progress Note Date: 10/17/23 * 78-year-old patient with past medical history significant for coronary artery disease history of PCI, dyslipidemia, history of pancreatic cancer, history of hypertension presents to the emergency department with complaints of chest pain. Patient states yesterday pain radiated to the shoulder. This was associated with numbness in the arm. Patient stated he was associated with nausea, and vomiting however denies diaphoresis, denies chills or cough * Workup initiated in ER included chest x-ray that was not * EKG obtained in ER showed sinus bradycardia, * Blood workup to include WBC 11.2 hemoglobin 13.7 platelet count of 313 INR of 0.9 * Chemistry sodium 139 potassium 3.9 carbon dioxide 16 BUN 25 creatinine 1.62 glucose 191 troponin within normal * Patient to be admitted to medical floor with consultations from cardiology * 10/17/2023: Patient seen and evaluated bedside, family at bedside as well, pat mike does complain of diarrhea. Will start on Lomotil.. Continue on IV fluid. Blood work reviewed creatinine 1.6, lipid profile showed triglyceride 168. Waiting for further instructions from cardiology REVIEW OF SYSTEMS: Chest pain improved, diarrhea CONSTITUTIONAL: No fever, no malaise, no fatigue. HEENT: No recent visual problems or hearing problems. Denied any sore throat. CARDIOVASCULAR: Chest pain improved, diarrhea PULMONARY: No shortness of breath, no cough, no hemoptysis. GASTROINTESTINAL: , no nausea, no vomiting, no abdominal pain. NEUROLOGICAL: No headaches, no weakness, no numbness. HEMATOLOGICAL: Denies any bleeding or petechiae. GENITOURINARY: Denies any burning micturition, frequency, or urgency. MUSCULOSKELETAL/RHEUMATOLOGICAL: Denies any joint pain, swelling, or any muscle pain. ENDOCRINE: Denies any polyuria or polydipsia. PHYSICAL EXAMINATION: GENERAL: The patient is alert and oriented x3, not in any acute distress. Well developed, well nourished. HEENT: Pupils are round and equally reacting to light. EOMI. CARDIOVASCULAR: S1 and S2 present. No murmurs, rubs, or gallops. PULMONARY: Chest is clear to auscultation, no wheezing or crackles. ABDOMEN: Soft, nontender, nondistended, normoactive bowel sounds. No palpable organomegaly. MUSCULOSKELETAL: No joint swelling or deformity. EXTREMITIES: No cyanosis, clubbing, or pedal edema. NEUROLOGICAL: Gross neurological examination did not reveal any focal deficits. SKIN: No rashes. Objective - Vital Signs Vital signs: Vital Signs Temp 97.4 F L 10/17/23 07:00 Pulse 53 L 10/17/23 07:00 Resp 16 10/17/23 07:00 BP 139/74 10/17/23 07:00 Pulse Ox 96 10/17/23 10:12 FiO2 Intake & Output 10/16/23 10/17/23 10/17/23 18:59 06:59 18:59 Weight 79.379 kg 79.379 kg Other: # Voids 1 - Labs CBC & Chem 7: 10/17/23 05:22 10/17/23 05:22 Labs: Abnormal Lab Results - Last 24 Hours (Table) 10/17/23 10/17/23 Range/Units 05:22 05:22 WBC 10.78 H (4.50-10.00) X 10*3/uL RBC 3.84 L (4.40-5.60) X 10*6/uL Hgb 11.8 L (13.0-17.0) g/dL Hct 36.3 L (39.6-50.0) % Immature Gran # 0.14 H (0.00-0.04) X 10*3/uL Monocytes # 1.14 H (0.20-1.00) X 10*3/uL Eosinophils # 0.45 H (0.04-0.35) X 10*3/uL Chloride 111 H (96-109) mmol/L Carbon Dioxide 19.8 L (21.6-31.8) mmol/L Creatinine 1.6 H (0.6-1.5) mg/dL Est GFR (CKD-EPI) 44 L (>=60) Glucose 111 H (70-110) mg/dL Triglycerides 168.00 H (0.00-149.00) mg/dL HDL Cholesterol 26.00 L (40.00-60.00) mg/dL Assessment and Plan Assessment: Assessment and plan * Chest pain rule out acute coronary syndrome * History of coronary artery disease * History of pancreatic cancer * Hypertension * Iron deficiency anemia history * Dyslipidemia * In regards to chest pain, serial troponins negative, requested cardiology to evaluate, lipid profile does show dyslipidemia * In regards to history of coronary artery disease continue medical management including aspirin, Lipitor, metoprolol * Regards to history of hypertension continue home regimen including amlodipine, hydrochlorothiazide, metoprolol * Status full code Time with Patient: Greater than 30
[2023-10-17] MEDS: DIPHENOX-ATROP 2.5-0.025 MG 1 EACH TAB PO PRN (15:57)
--- NOTE | 2023-10-17 17:22 | P.CRDCN ---
History of Present Illness Consult date: 10/17/23 Consult reason: chest pain Chief complaint: Pain History of present illness: History of present illness: Patient is a pleasant 78-year-old male with significant past medical history of CAD status post PCI of the LAD in 2018, hyperlipidemia, history of pancreatic cancer, hypertension who presented with complaints of chest pain. He does follow with Dr. Banks in the office. He has been having intermittent chest pain for the past [address] Dr[address] Banks and is scheduled for an outpatient echo and stress test. However a few days ago he was sitting watching TV when he developed worsening chest pain. He describes this as his left chest sharp pains radiating to the left arm it is intermittent and comes and goes. No associated signs or symptoms. Nothing makes it better or worse. Chest x-ray with no acute findings. EKG shows sinus bradycardia heart rate 51 bpm, right bundle branch block. Labs reviewed: Troponin negative x 3, WBC 10.78, hemoglobin 11.8, potassium 4.1, creatinine 1.6, LDL 8.4. Did have 1 episode of chest pain earlier this morning. Denies any chest pain presently. No shortness of breath, no dizziness or syncope. REVIEW OF SYSTEMS: No fever or chills. No cough or expectoration. No diaphoresis. Patient denies headache, dizziness, blurred vision, double vision. Patient denies any stomach discomfort. No nausea, vomiting. No hematochezia. No hematemesis. Denies any black stools or blood in his stools. Denies dysuria or hematuria. No muscle weakness or numbness. Reports intermittent sharp chest pain. PHYSICAL EXAMINATION: This is a 78-year-old male in no apparent distress at the time of my examination. HEENT: Head is atraumatic, normocephalic. Pupils are equal, round. Sclerae anicteric. Conjunctivae are clear. Mucous membranes of the mouth are moist. Neck is supple. There is no jugular venous distention. No carotid bruit is heard. CHEST EXAMINATION: Lungs are clear to auscultation. No chest wall tenderness is noted on palpation or with deep breathing. HEART EXAMINATION: Heart regular rate and rhythm. S1, S2 heard. No murmurs, gallops or rub. ABDOMEN: Soft, nontender. Bowel sounds are heard. No organomegaly noted. EXTREMITIES: 2+ peripheral pulses with no evidence of peripheral edema and no calf tenderness noted. NEUROLOGIC EXAMINATION: Patient is awake, alert and oriented x3. IMPRESSION AND PLAN: CAD status post PCI of the LAD in 2018 Hypertension Hyperlipidemia Chest pain History of pancreatic cancer PLAN: We will check echocardiogram to evaluate heart function and structure. Will check Lexiscan to rule out inducible ischemia. N.p.o. after midnight for further testing. I am dictating on behalf of Dr. Nathan Goldman's history/physical and a ssessment/plan. Past Medical History Past Medical History: Cancer, Hyperlipidemia, Hypertension, Myocardial Infarction ([place]), Prostate Disorder, Sleep Apnea/CPAP/BIPAP Additional Past Medical History / Comment(s): pancreatic CA 2016, with chemo and radiation, last 2019.anemia ( no sx at this time per pt), allergy induced asthma, generalized aches and pains kidney issues new dx Last Myocardial Infarction Date:: 08/2018 History of Any Multi-Drug Resistant Organisms: None Reported Past Surgical History: Cholecystectomy, Heart Catheterization With Stent, Orthopedic Surgery Additional Past Surgical History / Comment(s): Baron knees replaced, attempted a whipple and coudn't complete abd sx 12/30- scoped. cath with one stent. Past Anesthesia/Blood Transfusion Reactions: No Reported Reaction Date of Last Stent Placement:: 08/2018 Past Psychological History: No Psychological Hx Reported Smoking Status: Former smoker Past Alcohol Use History: Occasional Additional Past Alcohol Use History / Comment(s): 2 ppd quit 30 yrs ago Past Drug Use History: None Reported - Past Family History Father Additional Family Medical History / Comment(s): Emphysema. Mother Family Medical History: No Reported History Medications and Allergies Home Medications Medication Instructions Recorded Confirmed Type Aspirin [Adult Low Dose Aspirin EC] 81 mg PO DAILY 06/12/22 10/16/23 History Atorvastatin [Lipitor] 40 mg PO DAILY 06/12/22 10/16/23 History Ferrous Sulfate [Feosol] 325 mg PO DAILY 06/12/22 10/16/23 History Metoprolol Succinate [Toprol XL] 50 mg PO DAILY 06/12/22 10/16/23 History amLODIPine [Norvasc] 10 mg PO DAILY 06/12/22 10/16/23 History hydrALAZINE HCL [Apresoline] 50 mg PO TID 06/12/22 10/16/23 History Cholecalciferol [Vitamin D3 (25 25 mcg PO DAILY 10/16/23 10/16/23 History Mcg = 1000 Iu)] Dupilumab [Dupixent Pen] 300 mg SQ Q14D 10/16/23 10/16/23 History Omeprazole 20 mg PO DAILY 10/16/23 10/16/23 History allopurinoL [Zyloprim] 100 mg PO DAILY 10/16/23 10/16/23 History Allergies Allergy/AdvReac Type Severity Reaction Status Date / Time glipizide Allergy Rash/Hives Verified 10/16/23 13:41 Physical Exam Vitals: Vital Signs Temp Pulse Pulse Resp BP BP BP 10/17/23 10:12 10/17/23 07:00 97.4 F L 53 L 16 139/74 10/17/23 00:19 98.1 F 55 L 16 136/76 10/16/23 19:55 97.5 F L 55 L 16 151/73 10/16/23 18:00 57 L 18 150/86 10/16/23 16:00 52 L 18 132/69 10/16/23 14:00 53 L 20 134/71 10/16/23 12:00 49 L 19 153/73 Pulse Ox 10/17/23 10:12 96 10/17/23 07:00 94 L 10/17/23 00:19 96 10/16/23 19:55 97 10/16/23 18:00 96 10/16/23 16:00 96 10/16/23 14:00 98 10/16/23 12:00 95 Intake and Output 10/16/23 10/17/23 10/17/23 22:59 06:59 14:59 Other: # Voids 1 1 Weight 79.379 kg Results 10/17/23 05:22 10/17/23 05:22 Cardiac Enzymes 10/16/23 10/16/23 Range/Units 15:15 17:30 Troponin I <0.012 <0.012 (0.000-0.034) ng/mL Lipids 10/17/23 Range/Units 05:22 Triglycerides 168.00 H (0.00-149.00) mg/dL Cholesterol 68.00 (0.00-200.00) mg/dL HDL Cholesterol 26.00 L (40.00-60.00) mg/dL Cholesterol/HDL Ratio 2.62 Ratio Comprehensive Metabolic Panel 10/17/23 Range/Units 05:22 Sodium 141 (135-145) mmol/L Potassium 4.1 (3.5-5.5) mmol/L Chloride 111 H (96-109) mmol/L Carbon Dioxide 19.8 L (21.6-31.8) mmol/L BUN 22.0 (9.0-27.0) mg/dL Creatinine 1.6 H (0.6-1.5) mg/dL Glucose 111 H (70-110) mg/dL Calcium 9.0 (8.7-10.3) mg/dL Current Medications Generic Name Dose Route Start Last Admin Trade Name Freq PRN Reason Stop Dose Admin Acetaminophen 650 mg 10/16/23 11:10 Acetaminophen Tab 325 Mg Tab PO Q6HR PRN Mild Pain or Fever > 100.5 Allopurinol 100 mg 10/17/23 09:00 10/17/23 08:59 Allopurinol 100 Mg Tab PO 100 mg DAILY GABRIELA Administration Amlodipine Besylate 10 mg 10/16/23 15:00 10/17/23 09:00 Amlodipine 10 Mg Tab PO 10 mg DAILY GABRIELA Administration Aspirin 325 mg 10/17/23 09:00 10/17/23 08:59 Aspirin 325 Mg Tab PO 325 mg DAILY GABRIELA Administration Atorvastatin Calcium 40 mg 10/16/23 15:00 10/17/23 09:00 Atorvastatin 40 Mg Tab PO 40 mg DAILY GABRIELA Administration Cholecalciferol 25 mcg 10/17/23 09:00 10/17/23 08:59 Cholecalciferol 25 Mcg (1000 Iu) Tablet PO 25 mcg DAILY GABRIELA Administration Enoxaparin Sodium 40 mg 10/17/23 09:00 10/17/23 09:00 Enoxaparin 40 Mg/0.4 Ml Syringe SQ 40 mg DAILY GABRIELA Administration Ferrous Sulfate 325 mg 10/16/23 15:00 10/17/23 09:00 Ferrous Sulfate 325 Mg Tab PO 325 mg DAILY GABRIELA Administration Hydralazine HCl 50 mg 10/16/23 16:00 10/17/23 09:00 Hydralazine Hcl 50 Mg Tab PO 50 mg TID GABRIELA Administration Sodium Chloride 1,000 mls @ 100 mls/hr 10/16/23 11:15 10/17/23 05:18 Saline 0.9% IV 100 mls/hr .Q10H GABRIELA Administration Metoprolol Succinate 50 mg 10/16/23 15:00 10/17/23 09:00 Metoprolol Succinate (Er) 50 Mg Tab.Er.24h PO 50 mg DAILY GABRIELA Administration Naloxone HCl 0.2 mg 10/16/23 11:10 Naloxone 0.4 Mg/Ml 1 Ml Vial IV Q2M PRN Opioid Reversal Nitroglycerin 0.4 mg 10/16/23 10:08 Nitroglycerin Sl Tabs 0.4 Mg Tab SUBLINGUAL Q5M PRN Chest Pain Nitroglycerin 1 inch 10/16/23 12:00 10/17/23 05:18 Nitroglycerin Oint 1 Inch/Gm Packet TOPICAL 1 inch Q6HR GABRIELA Administration Ondansetron HCl 4 mg 10/16/23 11:10 Ondansetron 4 Mg/2 Ml Vial IVP Q8HR PRN Nausea And Vomiting Pantoprazole Sodium 40 mg 10/16/23 15:00 10/17/23 05:18 Pantoprazole 40 Mg Tablet PO 40 mg [id number] GABRIELA Administration Intake and Output 10/16/23 10/17/23 10/17/23 22:59 06:59 14:59 Other: # Voids 1 1 Weight 79.379 kg 10/16/23 08:38 10/17/23 05:22
[2023-10-18] MEDS ORDERED: CAFFEINE CITRATE 60 MG/3 ML VIAL IV PRN (06:00)
[2023-10-18] MEDS ORDERED: REGADENOSON 0.4 MG/5 ML SYRINGE IV PRN (06:00)
[2023-10-18] MEDS ORDERED: AMINOPHYLLINE 500 MG/20 ML VIAL IV PRN (06:00)
--- NOTE | 2023-10-18 10:40 | CA ---
Transthoracic Echo Report Name: Jones Shelley Age: 78 Gender: M : 1945 Exam Date: 10/18/2023 07:23 Exam Location: [place] [facility] Ht (in): 68 Wt (lb): 175 Ordering Physician: Alley Villeda Attending/Referring Phys: Finance Professor Kenna Osborn RDCS Procedure CPT: Indications: Chest Pain Cardiac Hx: Technical Quality: Fair Contrast 1: Total Dose (mL): Contrast 2: Total Dose (mL): MEASUREMENTS (Male / Female) Normal Values 2D ECHO LV Diastolic Diameter PLAX 4.7 cm 4.2 - 5.9 / 3.9 - 5.3 cm LV Systolic Diameter PLAX 3.8 cm IVS Diastolic Thickness 1.9 cm 0.6 - 1.0 / 0.6 - 0.9 cm LVPW Diastolic Thickness 1.3 cm 0.6 - 1.0 / 0.6 - 0.9 cm LV Relative Wall Thickness 0.7 Aortic Root Diameter 4.2 cm LA Systolic Diameter LX 2.3 cm 3.0 - 4.0 / 2.7 - 3.8 cm DOPPLER AV Peak Velocity 172.0 cm/s AV Peak Gradient 11.8 mmHg AV Mean Velocity 118.5 cm/s AV Mean Gradient 6.2 mmHg AV Velocity Time Integral 42.1 cm AI Peak Velocity 331.0 cm/s AI Peak Gradient 43.8 mmHg AI Pressure Half Time 613.8 ms LVOT Peak Velocity 106.6 cm/s LVOT Peak Gradient 4.5 mmHg Mitral E Point Velocity 86.4 cm/s Mitral A Point Velocity 122.8 cm/s Mitral E to A Ratio 0.7 MV Deceleration Time 243.5 ms MV E' Velocity 12.7 cm/s Mitral E to MV E' Ratio 6.8 FINDINGS Left Ventricle Left ventricular ejection fraction is estimated at 55-60 %.normal left ventricular wall motion. Left ventricular cavity size normal. Right Ventricle Right ventricle not well visualized. Right Atrium Normal right atrial size. Left Atrium Mild left atrial dilatation. Mitral Valve Mild mitral regurgitation.mitral annular calcification. Aortic Valve Mild aortic regurgitation.aortic valve sclerosis. Tricuspid Valve No tricuspid stenosis, or prolapse.structurally normal tricuspid valve. Mild tricuspid regurgitation. Pulmonic Valve Structurally normal pulmonic valve. Pericardium No thickening/calcification of the pericardium. Aorta Aorta at upper limits of normal. CONCLUSIONS 1. Normal left ventricle size and systolic function 2. Mild aortic, tricuspid and mitral regurgitation Previewed by: Dr. Misael Turner MD (Electronically Signed) Final Date: 18 October 2023 10:39
--- NOTE | 2023-10-18 12:22 | P.PN ---
Subjective Progress Note Date: 10/18/23 Consult reason: chest pain Chief complaint: Pain History of present illness: History of present illness: Patient is a pleasant 78-year-old male with significant past medical history of CAD status post PCI of the LAD in 2018, hyperlipidemia, history of pancreatic cancer, hypertension who presented with complaints of chest pain. He does follow with Dr. Banks in the office. He has been having intermittent chest pain for the past [address] weeks [address] Dr. Banks and is scheduled for an outpatient echo and stress test. However a few days ago he was sitting watching TV when he developed worsening chest pain. He describes this as his left chest sharp pains radiating to the left arm it is intermittent and comes and goes. No associated signs or symptoms. Nothing makes it better or worse. Chest x-ray with no acute findings. EKG shows sinus bradycardia heart rate 51 bpm, right bundle branch block. Labs reviewed: Troponin negative x 3, WBC 10.78, hemoglobin 11.8, potassium 4.1, creatinine 1.6, LDL 8.4. Did have 1 episode of chest pain earlier this morning. Denies any chest pain presently. No shortness of breath, no dizziness or syncope. 2/5 Patient denies having any chest pain or shortness of breath. Blood pressure 171/79, heart rate 71. No repeat blood work today. Patient is scheduled for Lexiscan stress test today. Echocardiogram reveals normal left ventricular size and systolic function. Mild aortic, tricuspid and mitral regurgitation. PHYSICAL EXAMINATION: This is a 78-year-old male in no apparent distress at the time of my examination. HEENT: Head is atraumatic, normocephalic. Pupils are equal, round. Sclerae anicteric. Conjunctivae are clear. Mucous membranes of the mouth are moist. Neck is supple. There is no jugular venous distention. No carotid bruit is heard. CHEST EXAMINATION: Lungs are clear to auscultation. No chest wall tenderness is noted on palpation or with deep breathing. HEART EXAMINATION: Heart regular rate and rhythm. S1, S2 heard. No murmurs, gallops or rub. ABDOMEN: Soft, nontender. Bowel sounds are heard. No organomegaly noted. EXTREMITIES: 2+ peripheral pulses with no evidence of peripheral edema and no calf tenderness noted. NEUROLOGIC EXAMINATION: Patient is awake, alert and oriented x3. IMPRESSION AND PLAN: CAD status post PCI of the LAD in 2018 Hypertension Hyperlipidemia Chest pain History of pancreatic cancer PLAN: Obtain Lexiscan stress test today If stress test is unremarkable, patient is cleared for discharge from cardiology and may follow-up in the office with Dr. Fried in 1 to 2 weeks. Nurse practitioner note has been reviewed, I agree with documented findings and plan of care. Patient was seen and examined. Objective - Vital Signs Vital signs: Vital Signs Temp 97.8 F 10/18/23 02:17 Pulse 51 L 10/18/23 02:17 Resp 16 10/18/23 02:17 BP 181/84 10/18/23 02:17 Pulse Ox 98 10/18/23 02:17 FiO2 Intake & Output 10/17/23 10/18/23 10/18/23 18:59 06:59 18:59 Other: # Voids 1 1 - Labs CBC & Chem 7: 10/17/23 05:22 10/17/23 05:22 Labs: Abnormal Lab Results - Last 24 Hours (Table) 10/17/23 10/17/23 Range/Units 05:22 05:22 WBC 10.78 H (4.50-10.00) X 10*3/uL RBC 3.84 L (4.40-5.60) X 10*6/uL Hgb 11.8 L (13.0-17.0) g/dL Hct 36.3 L (39.6-50.0) % Immature Gran # 0.14 H (0.00-0.04) X 10*3/uL Monocytes # 1.14 H (0.20-1.00) X 10*3/uL Eosinophils # 0.45 H (0.04-0.35) X 10*3/uL Chloride 111 H (96-109) mmol/L Carbon Dioxide 19.8 L (21.6-31.8) mmol/L Creatinine 1.6 H (0.6-1.5) mg/dL Est GFR (CKD-EPI) 44 L (>=60) Glucose 111 H (70-110) mg/dL Triglycerides 168.00 H (0.00-149.00) mg/dL HDL Cholesterol 26.00 L (40.00-60.00) mg/dL
--- NOTE | 2023-10-18 14:20 | NM ---
EXAMINATION TYPE: NM stress lexiscan cardiolite DATE OF EXAM: 10/18/2023 COMPARISON: NONE CLINICAL INDICATION: Male, 78 years old with history of chest pain; TECHNIQUE: After the intravenous administration of 10.3 mCi Tc 99m Sestamibi - Cardiolite resting SP ECT images acquired 80 minutes post injection. The patient received 0.4mg Lexiscan, 26.3 mCi Tc 99m Sestamibi - Stress images obtained [address] injection FINDINGS: Review of stress and rest SPECT images demonstrates small focus of reversible ischemia involving card iac apex. Fixed defect noted to involve the lateral wall. Gated analysis shows normal wall motion wit h an estimated left ventricular ejection fraction of 53 %. IMPRESSION: small focus of reversible ischemia involving cardiac apex. Fixed defect noted to involve the lateral wall.
--- NOTE | 2023-10-18 14:25 | P.PN ---
Subjective Progress Note Date: 10/18/23 * 78-year-old patient with past medical history significant for coronary artery disease history of PCI, dyslipidemia, history of pancreatic cancer, history of hypertension presents to the emergency department with complaints of chest pain. Patient states yesterday pain radiated to the shoulder. This was associated with numbness in the arm. Patient stated he was associated with nausea, and vomiting however denies diaphoresis, denies chills or cough * Workup initiated in ER included chest x-ray that was not * EKG obtained in ER showed sinus bradycardia, * Blood workup to include WBC 11.2 hemoglobin 13.7 platelet count of 313 INR of 0.9 * Chemistry sodium 139 potassium 3.9 carbon dioxide 16 BUN 25 creatinine 1.62 glucose 191 troponin within normal * Patient to be admitted to medical floor with consultations from cardiology * 10/17/2023: Patient seen and evaluated bedside, family at bedside as well, pat tanikant does complain of diarrhea. Will start on Lomotil.. Continue on IV fluid. Blood work reviewed creatinine 1.6, lipid profile showed triglyceride 168. Waiting for further instructions from cardiology * 10/18/2023: Patient seen and evaluated bedside. Patient denies chest pain. Stress test completed does show a fixed defect. Will wait for cardiology evaluation to review and make further recommendations regarding discharge planning REVIEW OF SYSTEMS: Chest pain resolved, diarrhea CONSTITUTIONAL: No fever, no malaise, no fatigue. HEENT: No recent visual problems or hearing problems. Denied any sore throat. CARDIOVASCULAR: Chest pain resolved, diarrhea PULMONARY: No shortness of breath, no cough, no hemoptysis. GASTROINTESTINAL: , no nausea, no vomiting, no abdominal pain. NEUROLOGICAL: No headaches, no weakness, no numbness. HEMATOLOGICAL: Denies any bleeding or petechiae. GENITOURINARY: Denies any burning micturition, frequency, or urgency. MUSCULOSKELETAL/RHEUMATOLOGICAL: Denies any joint pain, swelling, or any muscle pain. ENDOCRINE: Denies any polyuria or polydipsia. PHYSICAL EXAMINATION: GENERAL: The patient is alert and oriented x3, not in any acute distress. Well developed, well nourished. HEENT: Pupils are round and equally reacting to light. EOMI. CARDIOVASCULAR: S1 and S2 present. No murmurs, rubs, or gallops. PULMONARY: Chest is clear to auscultation, no wheezing or crackles. ABDOMEN: Soft, nontender, nondistended, normoactive bowel sounds. No palpable organomegaly. MUSCULOSKELETAL: No joint swelling or deformity. EXTREMITIES: No cyanosis, clubbing, or pedal edema. NEUROLOGICAL: Gross neurological examination did not reveal any focal deficits. SKIN: No rashes. Objective - Vital Signs Vital signs: Vital Signs Temp 98.0 F 10/18/23 07:00 Pulse 51 L 10/18/23 07:00 Resp 16 10/18/23 07:00 BP 143/68 10/18/23 14:02 Pulse Ox 95 10/18/23 07:00 FiO2 Intake & Output 10/17/23 10/18/23 10/18/23 18:59 06:59 18:59 Other: # Voids 1 1 - Labs CBC & Chem 7: 10/17/23 05:22 10/17/23 05:22 Assessment and Plan Assessment: Assessment and plan * Chest pain rule out acute coronary syndrome * History of coronary artery disease * History of pancreatic cancer * Hypertension * Iron deficiency anemia history * Dyslipidemia * History of atopic dermatitis * In regards to chest pain, serial troponins negative, requested cardiology to evaluate, lipid profile does show dyslipidemia, stress test completed does show defect, waiting for cardiology evaluation * In regards to history of coronary artery disease continue medical management including aspirin, Lipitor, metoprolol * Regards to history of hypertension continue home regimen including amlodipine, hydrochlorothiazide, metoprolol * Discharge pending cardiology clearance * Status full code Time with Patient: Greater than 30
[2023-10-18] MEDS ORDERED: NITROGLYCERIN SL TABS 0.4 MG TAB SUBLINGUAL PRN (15:00)
[2023-10-18] MEDS ORDERED: ALPRAZolam 0.25 MG TAB PO PRN (15:00)
[2023-10-18] MEDS: ALPRAZolam 0.5 MG TAB PO PRN (20:45)
[2023-10-19] MEDS: SODIUM CHLORIDE 0.9% 1,000 ML in EMPTY BAG 1 BAG IV SCH (01:24)
[2023-10-19] MEDS: ASPIRIN 325 MG TAB PO ONE (05:47)
[2023-10-19] MEDS: ATORVASTATIN 80 MG TAB PO ONE (05:47)
[2023-10-19 06:09] LABS: Glucose,Whole Blood 99 mg/dL (70-110)
[2023-10-19] MEDS ORDERED: HEPARIN SODIUM,PORCINE 10,000 UNIT in SODIUM CHLORIDE 0.9% 1,000 ML IRRIGATION PRN (07:00)
[2023-10-19] MEDS ORDERED: HEPARIN SODIUM,PORCINE (1 ML) 2,500 UNIT in SODIUM CHLORIDE 0.9% 250 ML IRRIGATION PRN (07:00)
--- NOTE | 2023-10-19 07:39 | CA ---
Lexiscan Nuclear Stress Test Report Name: Jayleen Shelley Exam Date: 10/18/2023 09:48 Exam Location: [place] [facility] Ht (in): 68 Wt (lb): 175 BSA: 1.93 Ordering Phys: Alley Villeda Referring Phys: JAYLEEN, Technologist: MOOK,, Age: 78 Gender: M : 1945 Procedure CPT: Indications: Reflex order-Stress test ICD-10 Codes: Patient History: Chest pain and hypertension Medications: Meds past 24 hrs: Pretest Chest Pain: STRESS TEST Lexiscan Protocol Exercise Duration (min:sec): 01:[address] Depressions (mm): Angina Score: Doss Score: Resting HR (bpm): 50 Peak HR (bpm): 77 Resting BP (mmHg): 167 / 80 Peak BP (mmHg): / 71 MPHR: 143 Target HR: 122 % MPHR: 54 METS: 1.0 Total Dose: Peak Dose: Atropine: Double Product: BP Response: Stress Termination: INFUSION COMPLETE Stress Symptoms: NECK PAIN Stress Summary: ECG ANALYSIS Resting ECG: Sinus rhythm. Right bundle branch block. No arrhythmias. Non-specific ST-T wave changes. Stress ECG: No ECG changes from baseline with Lexiscan infusion. Ventricular premature contraction. CONCLUSIONS No ECG evidence of ischemia with Lexiscan infusion. Nuclear test results to follow. Dr. Misael Turner MD (Electronically Signed) Final Date: 19 October 2023 07:38
--- NOTE | 2023-10-19 10:58 | P.PN ---
Subjective Progress Note Date: 10/19/23 Consult reason: chest pain Chief complaint: Pain History of present illness: History of present illness: Patient is a pleasant 78-year-old male with significant past medical history of CAD status post PCI of the LAD in 2018, hyperlipidemia, history of pancreatic cancer, hypertension who presented with complaints of chest pain. He does follow with Dr. Banks in the office. He has been having intermittent chest pain for the past [address] Dr[address] Banks and is scheduled for an outpatient echo and stress test. However a few days ago he was sitting watching TV when he developed worsening chest pain. He describes this as his left chest sharp pains radiating to the left arm it is intermittent and comes and goes. No associated signs or symptoms. Nothing makes it better or worse. Chest x-ray with no acute findings. EKG shows sinus bradycardia heart rate 51 bpm, right bundle branch block. Labs reviewed: Troponin negative x 3, WBC 10.78, hemoglobin 11.8, potassium 4.1, creatinine 1.6, LDL 8.4. Did have 1 episode of chest pain earlier this morning. Denies any chest pain presently. No shortness of breath, no dizziness or syncope. 2/5 Patient denies having any chest pain or shortness of breath. Blood pressure 171/79, heart rate 71. No repeat blood work today. Patient is scheduled for Lexiscan stress test today. Echocardiogram reveals normal left ventricular size and systolic function. Mild aortic, tricuspid and mitral regurgitation. 2/ Yesterday, patient underwent Lexiscan stress test that revealed a small focus of reversible ischemia involving the cardiac apex. Fixed defect noted to involve the lateral wall. Patient was subsequently scheduled for cardiac catheterization today. Blood pressure 160/78, heart rate 50. Pulse ox 96% on room air. PHYSICAL EXAMINATION: This is a 78-year-old male in no apparent distress at the time of my examination. HEENT: Head is atraumatic, normocephalic. Pupils are equal, round. Sclerae anicteric. Conjunctivae are clear. CHEST EXAMINATION: Lungs are clear to auscultation. No chest wall tenderness is noted on palpation or with deep breathing. HEART EXAMINATION: Heart regular rate and rhythm. S1, S2 heard. No murmurs, gallops or rub. ABDOMEN: Soft, nontender. Bowel sounds are heard. No organomegaly noted. EXTREMITIES: 2+ peripheral pulses with no evidence of peripheral edema and no calf tenderness noted. NEUROLOGIC EXAMINATION: Patient is awake, alert and oriented x3. IMPRESSION AND PLAN: CAD status post PCI of the LAD in 2018 Hypertension Hyperlipidemia Chest pain History of pancreatic cancer PLAN: Patient scheduled for cardiac catheterization today Further recommendations based on findings from cardiac catheterization. Nurse practitioner note has been reviewed, I agree with documented findings and plan of care. Patient was seen and examined. Objective - Vital Signs Vital signs: Vital Signs Temp 97.5 F L 10/19/23 07:51 Pulse 50 L 10/19/23 07:51 Resp 16 10/19/23 07:51 BP 160/78 10/19/23 07:51 Pulse Ox 96 10/19/23 07:51 FiO2 Intake & Output 10/18/23 10/19/23 10/19/23 18:59 06:59 18:59 Intake Total 240 Balance 240 Intake: Oral 240 Other: # Voids 1 1 - Labs CBC & Chem 7: 10/17/23 05:22 10/17/23 05:22
[2023-10-19 12:25] LABS: Potassium 3.7 mmol/L (3.5-5.1)
[2023-10-19 12:26] LABS: African American GFR (CKD) 57 (>60 ml/min/1.73 sqM); Anion Gap 6 mmol/L; Blood Urea Nitrogen 17 mg/dL (9-20); Calcium 8.8 mg/dL (8.4-10.2); Carbon Dioxide 20 mmol/L (22-30); Chloride 114 mmol/L (98-107); Glucose 102 mg/dL (74-99); Non-African American GFR(CKD) 49 (>60 ml/min/1.73 sqM); Sodium 140 mmol/L (137-145)
[2023-10-19] MEDS ORDERED: VERAPAMIL 2.5 MG/ML 2 ML AMP ONE (16:57)
[2023-10-19] MEDS ORDERED: LIDOCAINE 1% INJ 10MG/ML (20 ML MDV) ONE (16:57)
--- NOTE | 2023-10-20 06:32 | P.PN ---
Subjective Progress Note Date: 10/19/23 78-year-old patient with past medical history significant for coronary artery disease history of PCI, dyslipidemia, history of pancreatic cancer, history of hypertension presents to the emergency department with complaints of chest pain. Patient states yesterday pain radiated to the shoulder. This was associated with numbness in the arm. Patient stated he was associated with nausea, and vomiting however denies diaphoresis, denies chills or cough * Workup initiated in ER included chest x-ray that was not * EKG obtained in ER showed sinus bradycardia, * Blood workup to include WBC 11.2 hemoglobin 13.7 platelet count of 313 INR of 0.9 * Chemistry sodium 139 potassium 3.9 carbon dioxide 16 BUN 25 creatinine 1.62 glucose 191 troponin within normal * Patient to be admitted to medical floor with consultations from cardiology * 10/17/2023: Patient seen and evaluated bedside, family at bedside as well, raven stewart does complain of diarrhea. Will start on Lomotil.. Continue on IV fluid. Blood work reviewed creatinine 1.6, lipid profile showed triglyceride 168. Waiting for further instructions from cardiology * 10/18/2023: Patient seen and evaluated bedside. Patient denies chest pain. Stress test completed does show a fixed defect. Will wait for cardiology evaluation to review and make further recommendations regarding discharge planning 10/19/2023 Patient is seen in follow-up this morning currently n.p.o. as patient is scheduled to undergo cardiac catheterization with cardiology following. Awai pedro luisg follow-up labs to monitor kidney functions as creatinine was mildly elevated. Will await cardiac catheterization report and clearance from cardiology for discharge. Patient is afebrile denies chest pain or shortness of breath. No reported nausea or vomiting. Patient is having some mild lower extremity swelling and recommend compression stockings and/or Greg wraps to bilateral lower extremities from the toes up to the knees and elevating while at rest Review of systems: Constitutional: No reports of fatigue, fever, or chills Cardiovascular: No reports of chest pain or palpitations Respiratory: No reports of shortness of breath or cough GI: No reports of nausea, vomiting, or diarrhea : No reports of dysuria or retention Neurovascular: No reports of weakness or numbness, reports some mild lower extremity swelling PHYSICAL EXAMINATION: GENERAL: The patient is alert and oriented x3, lying in bed. Well developed, well nourished. HEENT: Pupils are round and equally reacting to light. EOMI. CARDIOVASCULAR: S1 and S2 muffled PULMONARY: Chest is clear to auscultation, no wheezing or crackles. ABDOMEN: Soft, nontender, nondistended, normoactive bowel sounds. No palpable organomegaly. MUSCULOSKELETAL: No joint swelling or deformity. EXTREMITIES: No cyanosis, clubbing, or pedal edema. Trace lower extremity swelling noted nonpitting NEUROLOGICAL: Gross neurological examination did not reveal any focal deficits. SKIN: No rashes. Assessment: Chest pain, rule out acute coronary syndrome History of coronary artery disease History of pancreatic cancer Hypertension Iron deficiency anemia history Dyslipidemia History of atopic dermatitis GI prophylaxis DVT prophylaxis Full code Plan: * In regards to chest pain, serial troponins negative, cardiology following and stress test completed does show defect recommending cardiac catheterization. Awaiting improvement in kidney functions and will likely undergo cardiac catheterization in the a.m. * In regards to history of coronary artery disease continue medical management including aspirin, Lipitor, metoprolol * Regards to history of hypertension continue home regimen including amlodipine, hydrochlorothiazide, metoprolol * Due to multiple complex medical issues, prognosis is guarded. Possible discharge in the next 24 hours once cleared by cardiology * Status full code The impression and plan of care has been dictated by Berenice Khan, Nurse Practitioner as directed. Dr. Silvano MD I have performed a history and examination and MDM of this patient, discussed the same with the dictator, and agree with the dictator's assessment and plan as written ,documented as a scribe. Based on total visit time, I have performed more than 50% of the visit. Objective - Vital Signs Vital signs: Vital Signs Temp 98.3 F 10/20/23 02:23 Pulse 76 10/20/23 02:23 Resp 15 10/20/23 02:23 BP 149/77 10/20/23 02:23 Pulse Ox 97 10/20/23 02:23 FiO2 Intake & Output 10/19/23 10/19/23 10/20/23 06:59 18:59 06:59 Other: # Voids 1 2 - Labs CBC & Chem 7: 10/17/23 05:22 10/19/23 12:03 Labs: Abnormal Lab Results - Last 24 Hours (Table) 10/19/23 Range/Units 12:03 Chloride 114 H (98-107) mmol/L Carbon Dioxide 20 L (22-30) mmol/L Creatinine 1.37 H (0.66-1.25) mg/dL Glucose 102 H (74-99) mg/dL
[2023-10-20] MEDS ORDERED: HEPARIN SODIUM 1,000 UN/ML (10ML VL) ONE (07:20)
[2023-10-20] MEDS ORDERED: VERAPAMIL 2.5 MG/ML 2 ML AMP ONE (07:20)
[2023-10-20] MEDS: IV FLUID CONTINUATION 250 ML IV ONE (07:35)
[2023-10-20] MEDS: MIDAZOLAM 2 MG/2 ML VIAL IVP ONE (07:40)
[2023-10-20] MEDS: LIDOCAINE 1% INJ 10MG/ML (20 ML MDV) SQ ONE (07:42)
[2023-10-20] MEDS: VERAPAMIL SYRINGE (5 MG/10 ML) INTRAARTER ONE (07:43)
[2023-10-20] MEDS: HEPARIN SODIUM 1,000 UN/ML (10ML VL) IVP ONE (07:45)
[2023-10-20] MEDS: IOPAMIDOL-370 100ML BTL INJ ONE (08:00)
[2023-10-20] MEDS ORDERED: RX INFO: IV CONTRAST WAS GIVEN 1 EACH MISC MISCELLANE PRN (08:08)
--- NOTE | 2023-10-20 08:12 | P.PCN ---
Date of Procedure: 10/20/23 Operative Findings: CARDIAC CATHETERIZATION PERFORMING PHYSICIAN: Everardo Fried MD, RPVI PROCEDURE PERFORMED: 1. Selective right and left coronary angiogram 2. Left heart catheterization 3. iFR of the RCA 4. Ultrasound-guided access of the right radial artery INDICATION: This is a 78-year-old gentleman with coronary artery disease and prior stenting of the LAD was admitted to the hospital with chest discomfort and underwent myocardial perfusion imaging stress test that revealed ischemia/reversibility. In the light of that heart catheterization was advised COMPLICATION: None APPROACH: Right radial artery LEVEL OF SEDATION: Moderate with a sedation length of 18 minutes PROCEDURE DESCRIPTION: After obtaining an informed consent, the patient was brought to cardiac laborer demolition. Local anesthesia was performed using lidocaine subcutaneously. The right radial artery was cannulated using Seldinger technique, the guidewire passed easily, following that we advanced a 5-[place] sheath dilator assembly, the wire and dilator were removed and sheath was flushed. Following that, 2 mg of verapamil along with 5000 unit heparin were given. Selective right and left coronary angiogram using a 6-[place] JR4 and JL 3.5 catheters. Following that we did left heart catheterization using 6-[place] pigtail catheter. Following that we did Doppler wire measurement of the RCA. After zeroing the Doppler wire and equalizing between the Doppler wire and guiding catheter which was JR4 guiding catheter the RCA was engaged and subsequently it was wired. Subsequently we did iFR and that came in to be nonischemic and 0.91. The procedure was completed there was no complication. SELECTIVE CORONARY ANGIOGRAM: The right coronary artery: Large caliber vessel and a dominant vessel. The RCA in the midportion has a lesion appeared to be intermediate in the range of 60%. Doppler wire measurement came in to be [id number] with iFR of 0.91. Left main: Is angiographically normal. Bifurcates into an LCx and LAD The left circumflex: Large caliber vessel nondominant vessel. The LCx has mild disease in the proximal portion. Gives rises into the first and second obtuse marginal branches and both appeared to be angiographically normal The left anterior descending artery: Large caliber vessel. The LAD proximally appears to be angiographically normal. The mid LAD stent is patent. The LAD distally has mild disease only. The LAD gives rises into the first and second diagonal branches both appeared to be angiographically normal HEMODYNAMICS: The LVEDP was 12 mmHg was no significant gradient across aortic valve CONCLUSION: 1. Patent stent in the mid LAD 2. Intermediate disease involving the mid RCA documented to be nonflow limiting by Doppler wire as described above 3. Normal left-sided filling pressure POSTPROCEDURE MANAGEMENT: Medical treatment
[2023-10-20] MEDS: SODIUM CHLORIDE 0.9% 1,000 ML IV SCH (08:49)
[2023-10-20 09:04] LABS: BUN/Creat Ratio 11.78 Ratio (12.00-20.00); Blood Urea Nitrogen 21.2 mg/dL (9.0-27.0); Calcium 8.6 mg/dL (8.7-10.3); Carbon Dioxide 19.8 mmol/L (21.6-31.8); Chloride 110 mmol/L (96-109); Glucose 115 mg/dL (70-110); Potassium 3.7 mmol/L (3.5-5.5); Sodium 141 mmol/L (135-145)
[2023-10-20 09:12] VITALS: TEMP 97.7
[2023-10-20 10:13] VITALS: RESP 14
[2023-10-20 13:14] VITALS: BP 151/80; PULSE 86
--- NOTE | 2023-10-21 04:42 | P.DS ---
Providers Date of admission: 10/18/23 14:34 Expected date of discharge: 10/20/23 Attending physician: Isidro Mendez MD Consults: 10/16/23 10:08 Consult Physician Urgent Consulting Provider: [facility] Consult Reason/Comments: Chest pain Do you want consulting provider notified?: Yes Primary care physician: Quique Arthur MD Hospital Course: Final diagnosis Chest pain, ruled out acute coronary syndrome, likely angina History of coronary artery disease History of pancreatic cancer Hypertension Iron deficiency anemia history Dyslipidemia History of atopic dermatitis GI prophylaxis DVT prophylaxis Full code Discharge disposition Patient is being discharged in a stable condition with guarded prognosis to home. Patient will follow-up with Dr. Quique Arthur in the outpatient setting upon discharge. Patient is to continue with current medications and close outpatient follow-up with cardiology as scheduled. Total time taken is greater than 35 minutes. Hospital course This is a 78-year-old male who was recently admitted with chest pain and being evaluated by cardiology. Initially patient underwent stress test with concerns of possible ischemia recommending cardiac catheterization. Cardiac catheterization was clean with no intervention recommending medical management and outpatient follow-up. Patient has been cleared by cardiology and will be discharged today. Patient having some mild lower extremity swelling likely secondary to IV fluids and recommend compression stockings and or Greg wraps from the toes up to the knees and elevating while at rest. Creatinine 1.8 today and recommend follow-up labs in the next few days. Please refer to other consultation notes for further HPI. Currently no reports of chest pain, shortness of breath, or palpitations. Patient is afebrile. No reports of nausea or vomiting and patient is tolerating diet. Patient reports to feeling well and would like to go home. Patient will be discharged home today. Guarded prognosis Physical exam: Gen: This is a 78-year-old male who is awake, alert and oriented x 3, well- developed, well-nourished, elderly appearing HEENT: Head is atraumatic, normocephalic. Pupils equal, round. Sclerae is anicteric. NECK: Supple. No JVD. No lymphadenopathy. No thyromegaly. LUNGS: Clear to auscultation. No wheezes or rhonchi. No intercostal retractions. HEART: S1, S2 are muffled ABDOMEN: Soft. Bowel sounds are present. No masses. No tenderness. EXTREMITIES: No pedal edema. No calf tenderness. Faint lower extremity swelling, nonpitting NEUROLOGICAL: Patient is awake, alert and oriented x3. Cranial nerves 2 through 12 are grossly intact. Please refer to medication reconciliation sheet for a list of medications. The impression and plan of care has been dictated by Berenice Khan, Nurse Practitioner as directed. Dr. Silvano MD I have performed a history and examination and MDM of this patient, discussed the same with the dictator, and agree with the dictator's assessment and plan as written ,documented as a scribe. Based on total visit time, I have performed more than 50% of the visit. Patient Condition at Discharge: Stable Plan - Discharge Summary Discharge Rx Participant: No New Discharge Prescriptions: Continue hydrALAZINE HCL [Apresoline] 50 mg PO TID Metoprolol Succinate [Toprol XL] 50 mg PO DAILY allopurinoL [Zyloprim] 100 mg PO DAILY Omeprazole 20 mg PO DAILY Cholecalciferol [Vitamin D3 (25 Mcg = 1000 Iu)] 25 mcg PO DAILY Dupilumab [Dupixent Pen] 300 mg SQ Q14D Ferrous Sulfate [Iron (65 MG Elemental)] 325 mg PO DAILY Atorvastatin [Lipitor] 40 mg PO DAILY amLODIPine [Norvasc] 10 mg PO DAILY Aspirin [Adult Low Dose Aspirin EC] 81 mg PO DAILY Discharge Medication List Aspirin [Adult Low Dose Aspirin EC] 81 mg PO DAILY 06/12/22 [History] Atorvastatin [Lipitor] 40 mg PO DAILY 06/12/22 [History] Ferrous Sulfate [Iron (65 MG Elemental)] 325 mg PO DAILY 06/12/22 [History] Metoprolol Succinate [Toprol XL] 50 mg PO DAILY 06/12/22 [History] amLODIPine [Norvasc] 10 mg PO DAILY 06/12/22 [History] hydrALAZINE HCL [Apresoline] 50 mg PO TID 06/12/22 [History] Cholecalciferol [Vitamin D3 (25 Mcg = 1000 Iu)] 25 mcg PO DAILY 10/16/23 [History] Dupilumab [Dupixent Pen] 300 mg SQ Q14D 10/16/23 [History] Omeprazole 20 mg PO DAILY 10/16/23 [History] allopurinoL [Zyloprim] 100 mg PO DAILY 10/16/23 [History] Follow up Appointment(s)/Referral(s): Quique Arthur MD [Primary Care Provider] - 1-2 days Everardo Fried MD [STAFF PHYSICIAN] - 10/27/23 4:45 pm Ambulatory/Diagnostic Orders: Basic Metabolic Panel [LAB.AMB] Time Frame: 3 Days, Location: None Selected Patient Instructions/Handouts: Heart Catheterization (DC) Activity/Diet/Wound Care/Special Instructions: Continue on low-salt diet on discharge Follow-up outpatient with PCP Discharge Disposition: HOME SELF-CARE
== END 2023-10-20 13:20 | disposition home or self-care (01) | DRG 287 ==
LOC: EC 08:12 → 6NMEDSUR 10:08 → OBSVTOIN 10-18 14:34
PROVIDERS: ADMIT Internal Medicine; ATTEND Internal Medicine
PROC: 4A033BC Measurement of Arterial Pressure, Coronary, Percutaneous Approach (ICD-10-PCS; principal; 2023-10-20 13:30)
PROC: 4A023N7 Measurement of Cardiac Sampling and Pressure, Left Heart, Percutaneous Approach (ICD-10-PCS; principal; 2023-10-20 13:30)
PROC: B2111ZZ Fluoroscopy of Multiple Coronary Arteries using Low Osmolar Contrast (ICD-10-PCS; principal; 2023-10-20 13:30)
DX: I25.119 Atherosclerotic heart disease of native coronary artery with unspecified angina pectoris (principal); Z85.07 Personal history of malignant neoplasm of pancreas; I10 Essential (primary) hypertension; I08.3 Combined rheumatic disorders of mitral, aortic and tricuspid valves; R00.1 Bradycardia, unspecified; D50.9 Iron deficiency anemia, unspecified; L20.9 Atopic dermatitis, unspecified; E78.00 Pure hypercholesterolemia, unspecified; D64.9 Anemia, unspecified; I45.10 Unspecified right bundle-branch block; I25.2 Old myocardial infarction; Z92.21 Personal history of antineoplastic chemotherapy; Z79.899 Other long term (current) drug therapy; Z79.82 Long term (current) use of aspirin; Z82.5 Family history of asthma and other chronic lower respiratory diseases; Z95.5 Presence of coronary angioplasty implant and graft; Z96.653 Presence of artificial knee joint, bilateral; Z90.49 Acquired absence of other specified parts of digestive tract; Z88.8 Allergy status to other drugs, medicaments and biological substances
CPT/HCPCS: 36415; 71046; 76937; 78452; 80048; 80053; 80061; 83735; 84484; 85025; 85610; 85730; 93005; 93017; 93306; 93458; 93799; 94760; 96360; 96361; 99285

== ENCOUNTER → 2023-11-23 | Outpatient (CLI) | payer MEDICARE ==
[2023-11-23 16:39] LABS: BUN/Creat Ratio 14.59 Ratio (12.00-20.00); Blood Urea Nitrogen 24.8 mg/dL (9.0-27.0); Calcium 9.7 mg/dL (8.7-10.3); Carbon Dioxide 19.4 mmol/L (21.6-31.8); Chloride 108 mmol/L (96-109); Glucose 134 mg/dL (70-110); Potassium 4.3 mmol/L (3.5-5.5); Sodium 139 mmol/L (135-145)
== END | disposition home or self-care (01) ==
LOC: LABWHC1 11:05
PROVIDERS: ATTEND Registered Nurse
DX: N17.9 Acute kidney failure, unspecified (principal)
CPT/HCPCS: 36415; 80048

== ENCOUNTER → 2024-03-28 | Outpatient (CLI) | payer MEDICARE ==
[2024-03-28 15:56] LABS: HCT 40.8 % (39.6-50.0); HGB 12.9 g/dL (13.0-17.0); MCH 30.1 pg (27.0-32.0); MCHC 31.6 g/dL (32.0-37.0); MCV 95.1 FL (80.0-97.0); Mean Platelet Volume 10.3 FL (9.5-12.2); NRBC Per 100 WBC 0 X 10*3/uL (0.00-0.01); Platelet Count 297 X 10*3/uL (140-440); RBC 4.29 X 10*6/uL (4.40-5.60); WBC 7.98 X 10*3/uL (4.50-10.00)
[2024-03-28 16:46] LABS: % Iron Saturation 18.32 (15.00-50.00); Blood Urea Nitrogen 25.4 mg/dL (9.0-27.0); Chloride 105 mmol/L (96-109); Glucose 132 mg/dL (70-110); Iron 50 UG/DL (65-175); Magnesium 1.6 mg/dL (1.5-2.4); Phosphorus 2.6 mg/dL (2.4-5.1); Sodium 139 mmol/L (135-145); Total Iron Binding Capacity 273 UG/DL (228-460); Uric Acid 6.7 mg/dL (3.7-8.7)
[2024-03-28 16:47] LABS: ALT 22 U/L (10-49); AST 20 U/L (14-35); Albumin 4.3 g/dL (3.8-4.9); Albumin/Globulin Ratio 1.79 Ratio (1.60-3.17); Alkaline Phosphatase 117 U/L (41-126); Calcium 9.2 mg/dL (8.7-10.3); Globulin 2.4 g/dL (1.6-3.3); Total Bilirubin 0.5 mg/dL (0.3-1.2); Total Protein 6.7 g/dL (6.2-8.2)
[2024-03-29 12:57] LABS: Appearance,Urine Clear (Clear); Bilirubin,Urine Negative (Negative); Blood,Urine Negative (Negative); Color,Urine Yellow (Yellow); Ketones,Urine Negative (Negative); Nitrite,Urine Negative (Negative); Urobilinogen,Urine 0.2 E.U./DL
[2024-03-29 15:59] LABS: Free Kappa Lt Chain Qnt, Serum 5.88 mg/dL (0.33-1.94); Free Lambda Lt Chain Qnt, Seru 3.35 mg/dL (0.57-2.63)
== END | disposition home or self-care (01) ==
LOC: LABWHC1 09:56
PROVIDERS: ATTEND Internal Medicine
DX: E55.9 Vitamin D deficiency, unspecified (principal); N39.0 Urinary tract infection, site not specified; N25.81 Secondary hyperparathyroidism of renal origin; M10.9 Gout, unspecified; N18.32 Chronic kidney disease, stage 3b; D63.1 Anemia in chronic kidney disease; R80.9 Proteinuria, unspecified
CPT/HCPCS: 36415; 80053; 81003; 82043; 82306; 82570; 82728; 83540; 83550; 83735; 83883; 83970; 84100; 84166; 84550; 85027; 86334

== ENCOUNTER → 2024-06-06 | Outpatient (CLI) | payer MEDICARE | END | disposition home or self-care (01) | LOC: LABWHC1 10:38 | PROVIDERS: ATTEND Internal Medicine | DX: Z12.5 Encounter for screening for malignant neoplasm of prostate (principal); E11.9 Type 2 diabetes mellitus without complications | CPT/HCPCS: 36415; 82043; 82570; 83036 ==

== ENCOUNTER → 2024-08-16 | Outpatient (CLI) | payer MEDICARE ==
[2024-08-16 10:43] LABS: Creatinine,Urine Random 149.8 mg/dL; Protein/Creatinine Ratio,Urine 0.187
[2024-08-16 15:13] LABS: HGB 13.2 g/dL (13.0-17.0); MCH 30.1 pg (27.0-32.0); MCHC 32.2 g/dL (32.0-37.0); MCV 93.6 FL (80.0-97.0); NRBC Per 100 WBC 0 X 10*3/uL (0.00-0.01); Platelet Count 373 X 10*3/uL (140-440); RBC 4.38 X 10*6/uL (4.40-5.60); RDW 14.4 % (11.5-14.5); WBC 10.16 X 10*3/uL (4.50-10.00)
[2024-08-16 15:47] LABS: ALT 27 U/L (10-49); AST 24 U/L (14-35); Albumin 4.3 g/dL (3.8-4.9); Albumin/Globulin Ratio 1.65 Ratio (1.60-3.17); Alkaline Phosphatase 139 U/L (41-126); BUN/Creat Ratio 12.44 Ratio (12.00-20.00); Blood Urea Nitrogen 22.4 mg/dL (9.0-27.0); Calcium 9.7 mg/dL (8.7-10.3); Chloride 109 mmol/L (96-109); Globulin 2.6 g/dL (1.6-3.3); Glucose 110 mg/dL (70-110); Magnesium 1.8 mg/dL (1.5-2.4); Phosphorus 3.1 mg/dL (2.4-5.1); Potassium 4.2 mmol/L (3.5-5.5); Sodium 143 mmol/L (135-145); Total Bilirubin 0.3 mg/dL (0.3-1.2); Total Protein 6.9 g/dL (6.2-8.2)
== END | disposition home or self-care (01) ==
LOC: LABWHC1 09:52
PROVIDERS: ATTEND Internal Medicine
DX: N18.32 Chronic kidney disease, stage 3b (principal); D63.1 Anemia in chronic kidney disease; N25.81 Secondary hyperparathyroidism of renal origin; E55.9 Vitamin D deficiency, unspecified; R80.9 Proteinuria, unspecified
CPT/HCPCS: 36415; 80053; 82043; 82306; 82570; 83735; 83970; 84100; 84156; 85027

== ENCOUNTER → 2024-09-18 | Outpatient (CLI) | payer MEDICARE ==
--- NOTE | 2024-09-18 14:58 | CT ---
EXAMINATION TYPE: CT ChestAbdPelvis wo con DATE OF EXAM: 09/18/2024 COMPARISON: Most recent prior CT September 2023 and older studies HISTORY: f/u pancreatic cancer CT DLP: 776.30 mGycm. Automated Exposure Control for Dose Reduction was Utilized. TECHNIQUE: CT scan of the thorax, abdomen and pelvis is performed with oral but without IV contrast. FINDINGS: Within the limitations of noncontrast study, the following observations are made LUNGS: The lungs are grossly clear, there is no concerning new or enlarging greater than 5 mm parench ymal mass or nodule identified. Stable 3 mm nodule anterior right mid lung axial image 33. There is no pleural effusion or pneumothorax seen. The tracheobronchial tree is patent. MEDIASTINUM: There are no new greater than 1 cm mediastinal lymph nodes. No cardiomegaly or pericar dial effusion is seen. Moderate to severe three-vessel coronary artery calcification is redemonstrat ed. Stable enlarged pulmonary arteries suggesting underlying pulmonary artery hypertension. The ascen ding aorta measures up to to 4.1 cm in diameter unchanged from prior. LIVER/GB: Cholecystectomy clips are redemonstrated. PANCREAS: Persistent focal ductal dilatation proximal body. Some atrophy and/or surgical resection a t the pancreatic head again seen. No new or enlarging mass. No increasing ductal dilatation. SPLEEN: No significant abnormality is seen. ADRENALS: No significant abnormality is seen. KIDNEYS: No renal stones or hydronephrosis seen bilaterally. Cortical thinning bilaterally is present . BOWEL: Some scattered colonic diverticuli with prominent level of sigmoid colon no CT evidence for ac [place] diverticulitis. Oral contrast only reaches ileal loops in the right abdomen. No abnormal small or large bowel dilatation. GENITAL ORGANS: Mildly enlarged prostate gland consistent with BPH . Scattered bilateral pelvic phleb oliths. LYMPH NODES: No new greater than 1cm abdominal or pelvic lymph nodes are appreciated. OSSEOUS STRUCTURES: Straightening of spine with moderate to severe multilevel disc space narrowing in the lumbar spine. Focal disc space degenerative sclerosis abuts the L1-L2 disc space. OTHER: Moderate calcified plaque of the infrarenal abdominal aorta extends into the iliac branch vess els. IMPRESSION: Stable appearance to the level of pancreatic head suggests successfully treated neoplasm. No new suspicious mass or adenopathy to suggest metastatic malignancy given limitation of noncontra st CT. [facility], , 09/18/2024 2:55 PM
== END | disposition home or self-care (01) ==
LOC: RADCTMAIN 10:51
PROVIDERS: ATTEND Internal Medicine Hematology & Oncology
DX: C25.0 Malignant neoplasm of head of pancreas (principal); N18.9 Chronic kidney disease, unspecified; D50.9 Iron deficiency anemia, unspecified; D64.9 Anemia, unspecified
CPT/HCPCS: 71250; 74176

== ENCOUNTER → 2024-11-07 | Outpatient (CLI) | payer MEDICARE ==
[2024-11-07 15:13] LABS: ALT 14 U/L (10-49); AST 18 U/L (14-35); Chol/HDL Ratio 2.02 Ratio; LDL Cholesterol,Calculated 21.9 mg/dL (0.0-131.0)
== END | disposition home or self-care (01) ==
LOC: LABWHC1 09:55
PROVIDERS: ATTEND Internal Medicine Interventional Cardiology
DX: E78.2 Mixed hyperlipidemia (principal)
CPT/HCPCS: 36415; 80061; 84450; 84460

== ENCOUNTER → 2025-03-20 | Outpatient (CLI) | payer MEDICARE ==
[2025-03-20 13:01] LABS: Protein/Creatinine Ratio,Urine 0.372
[2025-03-20 15:38] LABS: Basophils # (A) 0.06 X 10*3/uL (0.00-0.10); Basophils % (A) 0.8 %; Eosinophils # (A) 0.39 X 10*3/uL (0.04-0.35); Eosinophils % (A) 5.3 %; HCT 41.0 % (39.6-50.0); HGB 13.1 g/dL (13.0-17.0); Immature Grans, Automated 0.50 %; Lymphocytes # (A) 1.30 X 10*3/uL (0.90-5.00); Lymphocytes % (A) 17.7 %; MCH 30.6 pg (27.0-32.0); MCHC 32.0 g/dL (32.0-37.0); MCV 95.8 FL (80.0-97.0); Monocytes # (A) 0.87 X 10*3/uL (0.20-1.00); Monocytes % (A) 11.9 %; NRBC Per 100 WBC 0 X 10*3/uL (0.00-0.01); Neutrophils # (A) 4.67 X 10*3/uL (1.80-7.70); Neutrophils % (A) 63.8 %; Platelet Count 312 X 10*3/uL (140-440); RBC 4.28 X 10*6/uL (4.40-5.60); RDW 13.9 % (11.5-14.5); WBC 7.33 X 10*3/uL (4.50-10.00)
[2025-03-20 15:47] LABS: ALT 18 U/L (10-49); AST 21 U/L (14-35); Albumin 4.3 g/dL (3.8-4.9); Albumin/Globulin Ratio 1.79 Ratio (1.60-3.17); Alkaline Phosphatase 127 U/L (41-126); Anion Gap 13.60 mmol/L (4.00-12.00); BUN/Creat Ratio 12.79 Ratio (12.00-20.00); Blood Urea Nitrogen 24.3 mg/dL (9.0-27.0); Calcium 9.5 mg/dL (8.7-10.3); Carbon Dioxide 20.4 mmol/L (21.6-31.8); Chloride 107 mmol/L (96-109); Globulin 2.4 g/dL (1.6-3.3); Glucose 98 mg/dL (70-110); Magnesium 1.8 mg/dL (1.5-2.4); Potassium 4.4 mmol/L (3.5-5.5); Sodium 141 mmol/L (135-145); Total Protein 6.7 g/dL (6.2-8.2)
== END | disposition home or self-care (01) ==
LOC: LABWHC1 11:40
PROVIDERS: ATTEND Nurse Practitioner Adult Health
DX: D64.9 Anemia, unspecified (principal); E55.9 Vitamin D deficiency, unspecified; N25.81 Secondary hyperparathyroidism of renal origin; I10 Essential (primary) hypertension; M50.30 Other cervical disc degeneration, unspecified cervical region; E78.2 Mixed hyperlipidemia; E11.9 Type 2 diabetes mellitus without complications; I48.0 Paroxysmal atrial fibrillation
CPT/HCPCS: 36415; 80053; 82043; 82306; 82570; 83735; 83970; 84100; 84156; 85025